=== PATIENT | female | born 1950 | race Two or more races ===

== ENCOUNTER → 2016-08-13 | Outpatient (CLI) | payer OTHER | LOC: WI 08:31 | PROVIDERS: ATTEND Internal Medicine | DX: M81.0 Age-related osteoporosis without current pathological fracture (principal) | CPT/HCPCS: 77080 ==

== ENCOUNTER → 2017-03-25 | Outpatient (CLI) | payer MEDICARE, OTHER | LOC: WI 09:07 | PROVIDERS: ATTEND Internal Medicine | DX: Z53.9 Procedure and treatment not carried out, unspecified reason (principal) ==

== ENCOUNTER 2017-06-14 07:56 | Inpatient (IN) | payer MEDICARE, OTHER ==
[2017-06-14] MEDS ORDERED: NORMAL SALINE 1000 ML 1,000 ML IV ONE ×2 (08:08→08:59)
[2017-06-14] MEDS ORDERED: CEFTRIAXONE 1 GM/D5W RTU 1 GM/50 ML RTUPB IV ONE (08:08)
[2017-06-14] MEDS ORDERED: ACETAMINOPHEN 325 MG SUPP.RECT PR ONE (08:14)
[2017-06-14] MEDS ORDERED: ACETAMINOPHEN 325 MG TABLET PO ONE (08:17)
[2017-06-14 08:32] LABS: HEMATOCRIT 41.3 % (36.0-47.0); HEMOGLOBIN 13.7 g/dL (12.0-15.5); MEAN CORPUSCULAR HEMOGLOBIN 28.9 pg (27.0-33.4); MEAN CORPUSCULAR HGB CONC 33.2 g/dL (32.0-36.0); MEAN CORPUSCULAR VOLUME 87 fl (80-97); PLATELET COUNT 197 10^3/uL (150-450); RED BLOOD COUNT 4.74 10^6/uL (3.72-5.28); RED CELL DISTRIBUTION WIDTH 13.2 % (11.5-14.0); VENOUS BLOOD BASE EXCESS 2.4 mmol/L; VENOUS BLOOD HCO3 25.4 mmol/L (20-32); VENOUS BLOOD PCO2 34.5 mmHg (35-63); VENOUS BLOOD PH 7.49 (7.30-7.42); WHITE BLOOD COUNT 25.3 10^3/uL (4.0-10.5)
[2017-06-14 08:37] LABS: INTERNATIONAL RATION (INR) 1.25; PROTHROMBIN TIME 16.6 SEC (11.4-15.4)
[2017-06-14 08:51] LABS: ALANINE AMINOTRANSFERASE 88 U/L (9-52); ALBUMIN 3.3 g/dL (3.5-5.0); ALKALINE PHOSPHATASE 111 U/L (38-126); ANION GAP 13 (5-19); ASPARTATE AMINO TRANSFERASE 180 U/L (14-36); BILIRUBIN,DIRECT 0.6 mg/dL (0.0-0.4); BILIRUBIN,TOTAL 1.9 mg/dL (0.2-1.3); BLOOD UREA NITROGEN 15 mg/dL (7-20); CALCIUM 9.3 mg/dL (8.4-10.2); CARBON DIOXIDE 25 mmol/L (22-30); CHLORIDE 103 mmol/L (98-107); GLUCOSE 115 mg/dL (75-110); POTASSIUM 3.2 mmol/L (3.6-5.0); SODIUM 140.9 mmol/L (137-145)
[2017-06-14 08:57] LABS: AMORPHOUS SEDIMENT,URINE TRACE /HPF; APPEARANCE,URINE SLIGHTLY-CLOUDY; BILIRUBIN,URINE NEGATIVE (NEGATIVE); GLUCOSE, URINE NEGATIVE (NEGATIVE); KETONES,URINE 20 mg/dL (NEGATIVE); LEUKOCYTE ESTERASE,URINE NEGATIVE (NEGATIVE); NITRITE,URINE NEGATIVE (NEGATIVE); PROTEIN,URINE 100 mg/dL (NEGATIVE)
[2017-06-14] MEDS ORDERED: NORMAL SALINE 1000 ML 1,000 ML IV PRN (08:59)
[2017-06-14 09:02] LABS: COLOR,URINE DARK YELLOW
[2017-06-14 09:21] LABS: ABSOLUTE MONOCYTES # (MANUAL) 0.3 10^3/uL (0.1-1.4); BAND NEUTROPHILS % (MANUAL) 22 % (3-5); BASOPHILS % (MANUAL) 0 % (0-2); EOSINOPHILS % (MANUAL) 0 % (0-6); LYMPHOCYTES % (MANUAL) 4 % (13-45); MONOCYTES % (MANUAL) 1 % (3-13); PLATELET COMMENT ADEQUATE; RBC MORPHOLOGY COMMENT NORMO-CYTIC/CHROMIC; SEGMENTED NEUTROPHILS % (MAN) 73 % (42-78); TOTAL CELLS COUNTED 100; TOXIC GRANULATION 2+; TOXIC VACUOLATION PRESENT
--- NOTE | 2017-06-14 09:21 | RADIOLOGY REPORT (SQ) ---
EXAM DESCRIPTION: CHEST SINGLE VIEW COMPLETED DATE/TIME: 06/14/2017 9:05 am REASON FOR STUDY: altered COMPARISON: None. EXAM PARAMETERS: NUMBER OF VIEWS: One view. TECHNIQUE: Single frontal radiographic view of the chest acquired. RADIATION DOSE: NA LIMITATIONS: Obese patient, lordotic portable film with EKG leads over the chest FINDINGS: LUNGS AND PLEURA: Dense consolidation in the left upper lobe worrisome for pneumonia. Right lung grossly clear. No pleural effusions or pneumothorax. MEDIASTINUM AND HILAR STRUCTURES: No masses. Contour normal. HEART AND VASCULAR STRUCTURES: Mild cardiomegaly BONES: No acute findings. HARDWARE: None in the chest. OTHER: No other significant finding. IMPRESSION: Dense left upper lobe consolidation worrisome for pneumonia TECHNICAL DOCUMENTATION: JOB ID: [id number] [employer]- All Rights Reserved
[2017-06-14] MEDS ORDERED: LORAZEPAM INJ 2 MG/1 ML VIAL IV ONE (09:28)
--- NOTE | 2017-06-14 09:28 | ER Document Report ---
ED General - General Chief Complaint: Fever Stated Complaint: ALTERED MENTAL STATUS Time Seen by Provider: 06/14/17 08:08 Mode of Arrival: Medic Information source: Emergency Med Personnel Cannot obtain history due to: Altered mental status Notes: 67-year-old female presents altered from house yesterday. Patient denies any complaints is able to answer some questions but is not completely alert or oriented. noted patient was confused since last night TRAVEL OUTSIDE OF THE [place] IN LAST 30 DAYS: No - HPI Onset: Yesterday Onset/Duration: Sudden Quality of pain: No pain Severity: Severe Pain Level: Denies Associated symptoms: Fever, Weakness, Other Exacerbated by: Denies Relieved by: Denies Similar symptoms previously: No Recently seen / treated by doctor: No - Related Data Allergies/Adverse Reactions: No Known Allergies Allergy (Verified 06/14/17 09:18) Home Medications: Current Home Medications Cholecalciferol (Vitamin D3) [Vitamin D3 2000 unit Tablet] 2,000 unit PO [History] Cyanocobalamin (Vitamin B-12) [Vitamin B-12 SL 2500 mcg Tablet] 2,500 mcg SL [History] Potassium Gluconate 595 Mg Tablet 06/14/17 [History] Vitamin E (Dl, Acetate) [Vitamin E 400 Unit Capsule] 400 unit PO 06/14/17 [ History] Past Medical History - Social History Smoking Status: Never Smoker Cigarette use (# per day): No Chew tobacco use (# tins/day): No Smoking Education Provided: No Frequency of alcohol use: None Drug Abuse: None Family History: Reviewed & Not Pertinent Patient has suicidal ideation: No Patient has homicidal ideation: No - Past Medical History Cardiac Medical History: Reports: Hx Congestive Heart Failure, Hx Hypercholesterolemia Renal/ Medical History: Denies: Hx Peritoneal Dialysis GI Medical History: Reports: Hx Gastroesophageal Reflux Disease Psychiatric Medical History: Reports: Hx Depression Past Surgical History: Reports: Hx Section, Hx Cholecystectomy Review of Systems - Review of Systems Notes: PHYSICAL EXAMINATION: GENERAL: Ill-appearing febrile female HEAD: Atraumatic, normocephalic. EYES: Pupils equal round and reactive to light, extraocular movements intact, conjunctiva are normal. ENT: Nares patent, oropharynx clear without exudates. Moist mucous membranes. NECK: Normal range of motion, supple without lymphadenopathy LUNGS: Coarse breath sounds worse in the right upper lobe HEART: Tachycardic ABDOMEN: Soft, nontender, nondistended abdomen. No guarding, no rebound. No masses appreciated. Female : deferred Musculoskeletal: Normal range of motion, no pitting or edema. No cyanosis. NEUROLOGICAL: Cranial nerves grossly intact. Normal speech, normal gait. Normal sensory, motor exams PSYCH: Normal mood, normal affect. SKIN: Warm, Dry, normal turgor, no rashes or lesions noted. -: Yes ROS unobtainable due to patient's medical condition Physical Exam - Vital signs Vitals: Resp BP Pulse Ox 29 H 139/72 H 92 06/14/17 08:14 06/14/17 08:14 06/14/17 08:14 Course - Re-evaluation Re-evalutation: 06/14/17 10:53 Patient appears to meet SIRS criteria upon arrival, Tylenol was ordered, I immediately started antibiotics, her presentation is consistent with pneumonia with complaint of shortness of breath at home, patient is satting 100% here chest x-ray was consistent with pneumonia. Given that patient's altered meets sepsis criteria she was started on antibiotics 4 L of IV fluids were ordered and given patient was admitted to the hospitalist service - Vital Signs Vital signs: Temp Pulse Resp BP Pulse Ox 101.5 F H 20 124/58 L 100 06/14/17 09:01 06/14/17 09:01 06/14/17 09:01 06/14/17 09:01 - Laboratory Result Diagrams: 06/14/17 08:07 06/14/17 08:07 Laboratory results interpreted by me: 06/14/17 06/14/17 06/14/17 08:07 08:07 08:07 WBC 25.3 H Band Neutrophils % 22 H Lymphocytes % (Manual) 4 L Monocytes % (Manual) 1 L Abs Neuts (Manual) 24.0 H PT 16.6 H VBG pH VBG pCO2 Potassium 3.2 L Glucose 115 H Lactic Acid Total Bilirubin 1.9 H Direct Bilirubin 0.6 H AST 180 H ALT 88 H Creatine Kinase NT-Pro-B Natriuret Pep Total Protein 6.0 L Albumin 3.3 L Urine Protein Urine Ketones Urine Blood Urine Urobilinogen 06/14/17 06/14/17 06/14/17 08:07 08:07 08:07 WBC Band Neutrophils % Lymphocytes % (Manual) Monocytes % (Manual) Abs Neuts (Manual) PT VBG pH 7.49 H VBG pCO2 34.5 L Potassium Glucose Lactic Acid 3.1 H Total Bilirubin Direct Bilirubin AST ALT Creatine Kinase 3050 H NT-Pro-B Natriuret Pep Total Protein Albumin Urine Protein Urine Ketones Urine Blood Urine Urobilinogen 06/14/17 06/14/17 08:07 08:30 WBC Band Neutrophils % Lymphocytes % (Manual) Monocytes % (Manual) Abs Neuts (Manual) PT VBG pH VBG pCO2 Potassium Glucose Lactic Acid Total Bilirubin Direct Bilirubin AST ALT Creatine Kinase NT-Pro-B Natriuret Pep 2500 H Total Protein Albumin Urine Protein 100 H Urine Ketones 20 H Urine Blood LARGE H Urine Urobilinogen 4.0 H - Diagnostic Test Radiology reviewed: Image reviewed, Reports reviewed - EKG Interpretation by Me EKG shows normal: Sinus rhythm, [place], Intervals, QRS Complexes Critical Care Note - Critical Care Note Total time excluding time spent on procedures (mins): 40 Comments: 40 minutes of critical care time spent in direct contact evaluating and reevaluating the patient, treating symptoms, reviewing labs and studies and speaking with family and consultants excluding any procedures Discharge - Discharge Clinical Impression: Pneumonia Qualifiers: Pneumonia type: due to unspecified organism Laterality: left Lung location: lower lobe of lung Qualified Code(s): J18.1 - Lobar pneumonia, unspecified organism Sepsis Qualifiers: Sepsis type: sepsis due to unspecified organism Qualified Code(s): A41.9 - Sepsis, unspecified organism Condition: Stable Disposition: HOME, SELF-CARE Admitting Provider: Hospitalist Unit Admitted: [facility]
[2017-06-14] MEDS ORDERED: HYDRALAZINE HCL INJ/PF 20 MG/1 ML SDV IV PRN (09:29)
[2017-06-14] MEDS ORDERED: IPRATROPIUM/ALBUTEROL 0.5-2.5 MG/3 ML AMPUL NEB PRN (09:32)
[2017-06-14] MEDS ORDERED: VANCOMYCIN HCL 0 MG in DEXTROSE 5%-WATER 250 ML IV NR (09:45)
[2017-06-14] MEDS ORDERED: CHLORPHENIRAMINE MALEATE 4 MG TABLET PO ONE (10:00)
[2017-06-14] MEDS: POTASSI CL 20 MEQ/50 ML RIDER 20 MEQ/50 ML RTUPB IV SCH ×2 (10:24→12:58)
[2017-06-14] MEDS: GUAIFENESIN 600 MG TABLET.SA PO SCH ×2 (10:45→22:14)
[2017-06-14] MEDS: FLUTICASONE NASAL SPRAY 50 MCG/SPRY 120 SPRAY/16 GM NASL SCH ×2 (10:45→22:39)
--- NOTE | 2017-06-14 10:45 | PDOC H&P ---
History of Present Illness Admission Date/PCP: MOLLY RINCON MD Patient complains of: Altered mental status History of Present Illness: PAULINE BOSCH is a 67 year old female with a past medical history of morbid obesity, fibromyalgia, opiate dependent chronic pain, hypothyroidism, depression and anxiety. In the emergency room she is agitated her asks if she wants to kill herself. She replies yes, her agitation requires sedation with Ativan and is subsequently a very poor historian history is obtained by her . Patient presents with approximately 48 hours of lethargy following an argument with her sister. describes hearing her fall out of bed but declined assistance to get back into bed for approximately 8 hours and slept on the floor. He denies fever, vomiting or complaints of headache chest pain, nausea. He admits she has run out of medications including narcotics early on multiple occasions. Her workup reveals fever, tachycardia, tachypne,a leukocytosis and a large left- sided infiltrate suggestive of pneumonia. She is referred to the hospitalist for admission. Past Medical History Cardiac Medical History: Reports: Congestive Heart Failure, Hyperlipidema Endocrine Medical History: Reports: Hypothyroidism, Obesity GI Medical History: Reports: Gastroesophageal Reflux Disease Psychiatric Medical History: Reports: Depression Denies: Alcohol Dependency Hematology: Reports: Anemia Past Surgical History Past Surgical History: Reports: Section, Cholecystectomy Social History Information Source: Relative, Emergency Med Personnel, [facility] Records Lives with: Spouse/Significant other Smoking Status: Never Smoker - Advance Directive Resuscitation Status: Full Code Family History Family History: Arthritis Parental Family History Reviewed: Yes Children Family History Reviewed: Yes Sibling(s) Family History Reviewed.: Yes Medication/Allergy Allergies/Adverse Reactions: No Known Allergies Allergy (Verified 06/14/17 09:18) Review of Systems ROS unobtainable: Due to mental status Physical Exam Vital Signs: Temp Pulse Resp BP Pulse Ox 101.5 F H 20 124/58 L 100 06/14/17 09:01 06/14/17 09:01 06/14/17 09:01 06/14/17 09:01 Intake & Output 06/12/17 06/13/17 06/14/17 11:59 11:59 11:59 Weight 115.3 kg General appearance: PRESENT: disheveled, mild distress, morbidly obese Head exam: PRESENT: atraumatic, normocephalic Eye exam: PRESENT: conjunctiva pink, EOMI, PERRLA. ABSENT: scleral icterus Ear exam: PRESENT: normal external ear exam Mouth exam: PRESENT: moist, tongue midline Neck exam: ABSENT: carotid bruit, JVD, lymphadenopathy, thyromegaly Respiratory exam: PRESENT: accessory muscle use, rales, retraction, rhonchi, tachypnea Cardiovascular exam: PRESENT: RRR. ABSENT: diastolic murmur, rubs, systolic murmur Pulses: PRESENT: normal dorsalis pedis pul Vascular exam: PRESENT: normal capillary refill GI/Abdominal exam: PRESENT: normal bowel sounds, soft, tenderness - Left lower quadrant tenderness without guarding. ABSENT: distended, guarding, mass, organolmegaly, rebound Rectal exam: PRESENT: deferred Extremities exam: PRESENT: full ROM. ABSENT: calf tenderness, clubbing, pedal edema Neurological exam: PRESENT: alert, altered, awake, oriented to person, CN II- XII grossly intact. ABSENT: motor sensory deficit Psychiatric exam: PRESENT: depressed, unusual affect. ABSENT: homicidal ideation, suicidal ideation Skin exam: PRESENT: dry, intact, warm. ABSENT: cyanosis, rash Results Laboratory Results: 06/14/17 08:07 06/14/17 08:07 06/14/17 06/14/17 06/14/17 08:07 08:07 08:07 WBC 25.3 H RBC 4.74 Hgb 13.7 Hct 41.3 MCV 87 MCH 28.9 MCHC 33.2 RDW 13.2 Plt Count 197 Seg Neutrophils % Not Reportable Lymphocytes % Not Reportable Monocytes % Not Reportable Eosinophils % Not Reportable Basophils % Not Reportable Absolute Neutrophils Not Reportable Absolute Lymphocytes Not Reportable Absolute Monocytes Not Reportable Absolute Eosinophils Not Reportable Absolute Basophils Not Reportable VBG pH VBG pCO2 VBG HCO3 VBG Base Excess Sodium 140.9 Potassium 3.2 L Chloride 103 Carbon Dioxide 25 Anion Gap 13 BUN 15 Creatinine 0.78 Est GFR ( Amer) > 60 Est GFR (Non-Af Amer) > 60 Glucose 115 H Lactic Acid 3.1 H Calcium 9.3 Total Bilirubin 1.9 H AST 180 H ALT 88 H Alkaline Phosphatase 111 Total Protein 6.0 L Albumin 3.3 L Urine Color Urine Appearance Urine pH Ur Specific [place] Urine Protein Urine Glucose (UA) Urine Ketones Urine Blood Urine Nitrite Ur Leukocyte Esterase Urine WBC (Auto) Urine RBC (Auto) 06/14/17 06/14/17 08:07 08:30 WBC RBC Hgb Hct MCV MCH MCHC RDW Plt Count Seg Neutrophils % Lymphocytes % Monocytes % Eosinophils % Basophils % Absolute Neutrophils Absolute Lymphocytes Absolute Monocytes Absolute Eosinophils Absolute Basophils VBG pH 7.49 H VBG pCO2 34.5 L VBG HCO3 25.4 VBG Base Excess 2.4 Sodium Potassium Chloride Carbon Dioxide Anion Gap BUN Creatinine Est GFR ( Amer) Est GFR (Non-Af Amer) Glucose Lactic Acid Calcium Total Bilirubin AST ALT Alkaline Phosphatase Total Protein Albumin Urine Color DARK YELLOW Urine Appearance SLIGHTLY-CLOUDY Urine pH 6.0 Ur Specific [place] 1.020 Urine Protein 100 H Urine Glucose (UA) NEGATIVE Urine Ketones 20 H Urine Blood LARGE H Urine Nitrite NEGATIVE Ur Leukocyte Esterase NEGATIVE Urine WBC (Auto) 3 Urine RBC (Auto) 6 Impressions: Chest X-Ray 06/14/17 08:09 IMPRESSION: Dense left upper lobe consolidation worrisome for pneumonia Assessment & Plan - Diagnosis (1) Sepsis Qualifiers: Sepsis type: sepsis due to unspecified organism Qualified Code(s): A41.9 - Sepsis, unspecified organism Is this a current diagnosis for this admission?: Yes Plan: Most likely secondary to pneumonia admitted to ICU, IV fluid challenge empiric vancomycin and Zosyn ordered follow-up CBC, blood and urine culture (2) Pneumonia Qualifiers: Pneumonia type: due to unspecified organism Laterality: left Lung location: lower lobe of lung Qualified Code(s): J18.1 - Lobar pneumonia, unspecified organism Is this a current diagnosis for this admission?: Yes Plan: Complicated by bandemia and morbid obesity. admitted to the IMCU with vancomycin and Zosyn, albuterol and Atrovent. BiPAP as needed incentive spirometry consider follow-up imaging (3) Encephalopathy acute Is this a current diagnosis for this admission?: Yes Plan: Likely multifactorial secondary to depression with psychosis and delirium, sepsis and Ativan. Supportive measures. Evaluate urine drug screen (4) Chronic pain Is this a current diagnosis for this admission?: Yes Plan: Evaluate for fentanyl or lidocaine transdermal patch, supportive measures (5) Depression Is this a current diagnosis for this admission?: Yes Plan: Depression with suicidal ideation. I Will evaluate education reconciliation, TSH and obtain urine drug screen, suicide precautions and mental health consultation. (6) Hypokalemia Is this a current diagnosis for this admission?: Yes Plan: Replace potassium and evaluate magnesium. (7) Rhabdomyolysis Is this a current diagnosis for this admission?: Yes Plan: Suggested by history of sleeping on the floor, opiates and elevated AST. Will evaluate total CK and initiate IV fluid challenge. - Time Time Spent: 50 to 70 Minutes - Inpatient Certification Medical Necessity: Need Close Monitoring Due to Risk of Patient Decompensation
[2017-06-14 10:47] LABS: CREATINE KINASE MB 7.97 ng/mL (<4.55)
[2017-06-14] MEDS ORDERED: VANCOMYCIN HCL 1,500 MG in DEXTROSE 5%-WATER 250 ML IV ONE (11:00)
[2017-06-14 11:01] LABS: TROPONIN I 0.33 ng/mL
[2017-06-14 11:40] LABS: URINE AMPHETAMINES SCREEN NEGATIVE; URINE BARBITURATES SCREEN NEGATIVE; URINE BENZODIAZEPINES SCREEN NEGATIVE; URINE COCAINE SCREEN NEGATIVE; URINE MARIJUANA (THC) SCREEN NEGATIVE; URINE METHADONE SCREEN NEGATIVE; URINE PHENCYCLIDINE SCREEN NEGATIVE
[2017-06-14 11:54] LABS: PATH REVIEW PATHOLOGIST REVIEWED
[2017-06-14] MEDS ORDERED: PIPERACILLIN SODIUM/TAZOBACTAM 4.5 GM in NORMAL SALINE 100 ML IV SCH (12:00)
[2017-06-14] MEDS ORDERED: PIPERACILLIN SODIUM/TAZOBACTAM 3.375 GM in NORMAL SALINE 100 ML IV SCH (12:00)
--- NOTE | 2017-06-14 12:10 | PSYCHOLOGICAL NOTE ---
Psych Note - Psych Note Psych Note: * Reason for consult: depression w optate dependency and suicidal ideation * Consent permissions: Patient is currently unable to provide Patient is a 67 year old female with a past medical history of morbid obesity, fibromyalgia, opiate dependent chronic pain, hypothyroidism, depression and anxiety. In the emergency room she is agitated, her asks if she wants to kill herself. She replies yes, her agitation requires sedation with Ativan and is subsequently a very poor historian; history is obtained by her . Evaluation Patient observed attempting to get out of [facility]. Patient is visibly agitated, confused and scared. Patient is unable to state where she is or why she is currently at [facility]. Patient started to cry when she was assisted back into the [facility]. Patient's , Taj, states that the patient has been seeing Dr. Manning for approximately 4-5 years but has been suffering from depression for "as long as I can remember." He continued to state that she has had both her knees replaced and a hernia repaired twice. The patient has said in the past that this is not a quality of life however he continued to state, "she does not say it often and has not said it lately." He disclosed that she has been going to pain management and was recently put on Lyrica (approximately 1-2 months ago) after being diagnosed with fibromyalgia. He reports that in addition to the Lyrica she is on multiple other medications and in between taking those medication she is taking Tylenol for the pain. Clinician asked Taj what prompted him to ask if the patient wanted to kill herself, he disclosed " because of the way she has been fighting.... Trying to pull out her IVs and leave.... I have never seen her like this." Patient is currently altered mental status. She is unable to identify where she is at, why she is currently at [facility], and possibly what is being said to her. Patient appears to be very confused and scared. All cognitive functioning is currently impaired due to her current mental status. 311 (32.9) unspecified depressive disorder per history provided by patient's 300.00 (F41.9) unspecified anxiety disorder per history provided by patient's Impression\\plan: Patient is considered psychiatrically clear. Patient is currently in altered mental status. This is possibly due to her medical status. Patient's states that she is under the care of an outpatient psychiatric provider, Dr. Manning, and states he has never had concerns for the patient having suicidal ideation in the past. He disclosed that he asked the patient if she wanted to kill herself because of the way she has been behaving since arriving (i.e. attempting to pull of IVs and leave). The Behavioral Health Team recommends medication adjustments: Discontinue Ambien and Abilify, Decrease Krissy to 50mg BID, Effexor to 75mg QD, and to Trazadone 50mg QHS. Thank you for this consult.
[2017-06-14] MEDS: IPRATROPIUM/ALBUTEROL 0.5-2.5 MG/3 ML AMPUL NEB SCH ×2 (13:43→20:21)
[2017-06-14] MEDS: HEPARIN SOD (PORCINE) 5,000 UNIT/ML 1 ML SYRINGE SUBCUT SCH ×2 (14:11→21:56)
[2017-06-14] MEDS: NORMAL SALINE 1000 ML 1,000 ML IV SCH ×3 (14:32→21:57)
[2017-06-14] MEDS ORDERED: PROPRANOLOL HCL 20 MG TABLET PO ONE (14:45)
[2017-06-14] MEDS ORDERED: ASPIRIN 325 MG TABLET PO ONE (16:28)
[2017-06-14 16:29] LABS: CREATINE KINASE MB 8.94 ng/mL (<4.55)
[2017-06-14 16:36] LABS: TROPONIN I 0.207 ng/mL
[2017-06-14] MEDS: PIPERACILLIN SODIUM/TAZOBACTAM 3.375 GM in NORMAL SALINE 100 ML IV SCH (17:33)
[2017-06-14] MEDS: VANCOMYCIN HCL 1,000 MG in DEXTROSE 5%-WATER 250 ML IV SCH (21:56)
[2017-06-14] MEDS ORDERED: PREGABALIN 75 MG CAPSULE PO SCH (22:00)
[2017-06-14] MEDS: VENLAFAXINE HCL 75 MG CAP.SR.24H PO SCH (22:11)
[2017-06-14] MEDS: TRAZODONE HCL 50 MG TABLET PO SCH (22:11)
[2017-06-14] MEDS: ARIPIPRAZOLE 5 MG TABLET PO SCH (22:13)
[2017-06-14 22:42] LABS: CREATINE KINASE MB 7.09 ng/mL (<4.55); TROPONIN I 0.166 ng/mL
[2017-06-15] MEDS: PIPERACILLIN SODIUM/TAZOBACTAM 3.375 GM in NORMAL SALINE 100 ML IV SCH ×4 (00:25→18:17)
[2017-06-15] MEDS: PROPRANOLOL HCL 20 MG TABLET PO SCH ×3 (01:04→22:52)
[2017-06-15] MEDS: IPRATROPIUM/ALBUTEROL 0.5-2.5 MG/3 ML AMPUL NEB SCH ×4 (01:56→20:55)
[2017-06-15] MEDS: LEVOTHYROXINE SODIUM 0.075 MG TABLET PO SCH (05:24)
[2017-06-15] MEDS: HEPARIN SOD (PORCINE) 5,000 UNIT/ML 1 ML SYRINGE SUBCUT SCH ×3 (05:24→22:53)
[2017-06-15] MEDS: NORMAL SALINE 1000 ML 1,000 ML IV SCH (05:25)
[2017-06-15 05:48] LABS: HEMATOCRIT 34.9 % (36.0-47.0); MEAN CORPUSCULAR HEMOGLOBIN 28.7 pg (27.0-33.4); MEAN CORPUSCULAR HGB CONC 32.7 g/dL (32.0-36.0); MEAN CORPUSCULAR VOLUME 88 fl (80-97); PLATELET COUNT 156 10^3/uL (150-450); RED BLOOD COUNT 3.99 10^6/uL (3.72-5.28); RED CELL DISTRIBUTION WIDTH 13.4 % (11.5-14.0); WHITE BLOOD COUNT 18.1 10^3/uL (4.0-10.5)
[2017-06-15 05:54] LABS: HEMOGLOBIN 11.4 g/dL (12.0-15.5)
[2017-06-15 06:00] LABS: ALANINE AMINOTRANSFERASE 83 U/L (9-52); ALBUMIN 2.5 g/dL (3.5-5.0); ALKALINE PHOSPHATASE 91 U/L (38-126); ANION GAP 10 (5-19); ASPARTATE AMINO TRANSFERASE 130 U/L (14-36); BILIRUBIN,DIRECT 0.3 mg/dL (0.0-0.4); BLOOD UREA NITROGEN 13 mg/dL (7-20); CALCIUM 8.8 mg/dL (8.4-10.2); CARBON DIOXIDE 22 mmol/L (22-30); CHLORIDE 113 mmol/L (98-107); GLUCOSE 81 mg/dL (75-110); TOTAL PROTEIN 4.7 g/dL (6.3-8.2)
[2017-06-15 06:06] LABS: POTASSIUM 2.9 mmol/L (3.6-5.0)
[2017-06-15 06:17] LABS: ABSOLUTE LYMPHOCYTES# (MANUAL) 1.1 10^3/uL (0.5-4.7); ABSOLUTE MONOCYTES # (MANUAL) 0.2 10^3/uL (0.1-1.4); ABSOLUTE NEUTROPHILS# (MANUAL) 16.8 10^3/uL (1.7-8.2); BAND NEUTROPHILS % (MANUAL) 5 % (3-5); BASOPHILS % (MANUAL) 0 % (0-2); EOSINOPHILS % (MANUAL) 0 % (0-6); LYMPHOCYTES % (MANUAL) 6 % (13-45); MONOCYTES % (MANUAL) 1 % (3-13); SEGMENTED NEUTROPHILS % (MAN) 88 % (42-78); TOTAL CELLS COUNTED 100
[2017-06-15 06:18] LABS: PLATELET COMMENT ADEQUATE; RBC MORPHOLOGY COMMENT NORMO-CYTIC/CHROMIC; TOXIC GRANULATION 1+
[2017-06-15] MEDS ORDERED: POTASSIUM CHLORIDE 10 MEQ TABLET.SA PO ONE (06:37)
[2017-06-15] MEDS: GUAIFENESIN 600 MG TABLET.SA PO SCH ×2 (09:25→22:52)
[2017-06-15] MEDS: VENLAFAXINE HCL 75 MG CAP.SR.24H PO SCH ×2 (09:25→22:52)
[2017-06-15] MEDS: VANCOMYCIN HCL 1,000 MG in DEXTROSE 5%-WATER 250 ML IV SCH ×2 (09:26→22:55)
[2017-06-15] MEDS ORDERED: NORMAL SALINE 1000 ML 1,000 ML IV PRN (11:29)
--- NOTE | 2017-06-15 11:40 | PDOC PROGRESS REPORT ---
Subjective Progress Note for:: 06/15/17 Subjective:: Unable to obtain since confused. to bedside and states that her problems started late on and progressed to Saturday prompting to bring her to emergency room. When he inquired about suicidal thoughts today he states that he does not think he knew what she was talking about Reason For Visit: SEPSIS,PNEUMONIA Physical Exam Vital Signs: Temp Pulse Resp BP Pulse Ox 99.2 F 105 H 24 H 105/57 L 94 06/15/17 03:10 06/15/17 03:10 06/15/17 03:10 06/15/17 03:10 06/15/17 03:10 Intake & Output 06/14/17 06/15/17 06/16/17 06:59 06:59 06:59 Intake Total 3605 Output Total 825 Balance 2780 Weight 120.2 kg General appearance: PRESENT: no acute distress, cooperative, morbidly obese Head exam: PRESENT: atraumatic, normocephalic Eye exam: PRESENT: EOMI, PERRLA Ear exam: PRESENT: normal external ear exam Mouth exam: PRESENT: dry mucosa Neck exam: PRESENT: full ROM. ABSENT: JVD, tenderness Respiratory exam: PRESENT: decreased breath sounds. ABSENT: tachypnea, unlabored, wheezes Cardiovascular exam: PRESENT: RRR. ABSENT: diastolic murmur, systolic murmur Vascular exam: PRESENT: normal capillary refill GI/Abdominal exam: PRESENT: normal bowel sounds, soft. ABSENT: guarding, tenderness Extremities exam: ABSENT: joint swelling, pedal edema Musculoskeletal exam: PRESENT: full ROM Neurological exam: PRESENT: alert, awake, oriented to person, CN II-XII grossly intact Psychiatric exam: PRESENT: depressed Results Laboratory Results: 06/15/17 05:00 06/15/17 05:00 06/14/17 06/15/17 06/15/17 12:13 05:00 05:00 WBC 18.1 H RBC 3.99 Hgb 11.4 L D Hct 34.9 L MCV 88 MCH 28.7 MCHC 32.7 RDW 13.4 Plt Count 156 Seg Neutrophils % Not Reportable Lymphocytes % Not Reportable Monocytes % Not Reportable Eosinophils % Not Reportable Basophils % Not Reportable Absolute Neutrophils Not Reportable Absolute Lymphocytes Not Reportable Absolute Monocytes Not Reportable Absolute Eosinophils Not Reportable Absolute Basophils Not Reportable Sodium 145.0 Potassium 2.9 L* Chloride 113 H Carbon Dioxide 22 Anion Gap 10 BUN 13 Creatinine 0.66 Est GFR ( Amer) > 60 Est GFR (Non-Af Amer) > 60 Glucose 81 Lactic Acid 2.9 H Calcium 8.8 Magnesium Total Bilirubin 1.0 AST 130 H ALT 83 H Alkaline Phosphatase 91 Total Protein 4.7 L Albumin 2.5 L 06/15/17 05:00 WBC RBC Hgb Hct MCV MCH MCHC RDW Plt Count Seg Neutrophils % Lymphocytes % Monocytes % Eosinophils % Basophils % Absolute Neutrophils Absolute Lymphocytes Absolute Monocytes Absolute Eosinophils Absolute Basophils Sodium Potassium Chloride Carbon Dioxide Anion Gap BUN Creatinine Est GFR ( Amer) Est GFR (Non-Af Amer) Glucose Lactic Acid Calcium Magnesium 1.9 Total Bilirubin AST ALT Alkaline Phosphatase Total Protein Albumin 06/14/17 06/14/17 06/14/17 15:35 15:35 21:50 Creatine Kinase 2506 H 1498 H CK-MB (CK-2) 8.94 H Troponin I 0.207 06/14/17 21:50 Creatine Kinase CK-MB (CK-2) 7.09 H Troponin I 0.166 Impressions: Chest X-Ray 06/14/17 08:09 IMPRESSION: Dense left upper lobe consolidation worrisome for pneumonia Assessment & Plan - Diagnosis (1) Opioid dependence Qualifiers: Substance use status: uncomplicated Qualified Code(s): F11.20 - Opioid dependence, uncomplicated Is this a current diagnosis for this admission?: Yes Plan: Even though her long-standing does not appear to me that may be playing a role in her presentation (2) Chronic pain Qualifiers: Chronic pain type: chronic pain syndrome Qualified Code(s): G89.4 - Chronic pain syndrome Is this a current diagnosis for this admission?: Yes Plan: We will continue current regimen and will try to avoid heavy sedation (3) Encephalopathy acute Is this a current diagnosis for this admission?: Yes Plan: Persisting but appears to be related to septic process (4) Hypokalemia Is this a current diagnosis for this admission?: Yes Plan: Replace p.o. and trend. Will order a one-time dose of magnesium sulfate 1 g. (5) Pneumonia Qualifiers: Pneumonia type: due to unspecified organism Laterality: left Lung location: lower lobe of lung Qualified Code(s): J18.1 - Lobar pneumonia, unspecified organism Is this a current diagnosis for this admission?: Yes Plan: Concern about the location of pneumonic process and will order a CT of the chest. Will continue Zosyn and vancomycin (6) Rhabdomyolysis Is this a current diagnosis for this admission?: Yes Plan: May relate to septic process. Will continue with IV fluids and will trend CPK (7) Sepsis Qualifiers: Sepsis type: sepsis due to unspecified organism Qualified Code(s): A41.9 - Sepsis, unspecified organism Is this a current diagnosis for this admission?: Yes Plan: Due to pneumonic process (8) Elevated troponin Is this a current diagnosis for this admission?: Yes Plan: Due to myocardial oxygen demand ischemia in the setting of sepsis - Time Time Spent with patient: 15-24 minutes Medications reviewed and adjusted accordingly: Yes Anticipated discharge: Acute Rehab Within: within 72 hours - Inpatient Certification Based on my medical assessment, after consideration of the patient's comorbidities, presenting symptoms, or acuity I expect that the services needed warrant INPATIENT care.: Yes I certify that my determination is in accordance with my understanding of Medicare's requirements for reasonable and necessary INPATIENT services [42 CFR 412.3e].: Yes Medical Necessity: Need for IV Antibiotics
[2017-06-15] MEDS ORDERED: PREGABALIN 50 MG CAPSULE PO ONE (12:30)
[2017-06-15] MEDS ORDERED: MAGNESIUM SULFATE/D5W 1 GM/100 ML RTUPB IV ONE (12:30)
--- NOTE | 2017-06-15 13:17 | RADIOLOGY REPORT (SQ) ---
EXAM DESCRIPTION: CT CHEST WITHOUT COMPLETED DATE/TIME: 06/15/2017 12:35 pm REASON FOR STUDY: left upper lung consilidation COMPARISON: Chest radiograph TECHNIQUE: CT scan performed of the chest without intravenous contrast. Images reviewed with lung, soft tissue and bone windows. Reconstructed coronal and sagittal MPR images reviewed. All images st ored on PACS. All CT scanners at this facility use dose modulation, iterative reconstruction, and/or weight based d osing when appropriate to reduce radiation dose to as low as reasonably achievable (ALARA). [facility]: Dose Right [facility]: CareDose [facility]: Dose Right [facility]: Teradose 4D [facility]: [email or web address] RADIATION DOSE: CT Rad equipment meets quality standard of care and radiation dose reduction techniq ues were employed. CTDIvol: 28.0 mGy. DLP: 1073 mGy-cm. mGy. LIMITATIONS: No technical limitations. FINDINGS: LUNGS AND PLEURA: Extensive dense opacity in the left upper lobe with multiple air broncho grams. No effusions. No endobronchial lesions. Minimal left basilar atelectasis. HILAR AND MEDIASTINAL STRUCTURES: No identified masses or abnormal nodes. No obvious aneurysm. HEART AND VASCULAR STRUCTURES: No aneurysm. No pericardial effusion. UPPER ABDOMEN: Large ventral hernia containing bowel. THYROID AND OTHER SOFT TISSUES: No masses. No adenopathy. BONES: No significant finding. HARDWARE: None in the chest. OTHER: No other significant findings. IMPRESSION: Extensive left upper lobe pneumonia without identified mass. Ventral abdominal hernia containing nonobstructed bowel. TECHNICAL DOCUMENTATION: JOB ID: [id number] Quality ID # [id number]: Final reports with documentation of one or more dose reduction techniques (e.g., Au tomated exposure control, adjustment of the mA and/or kV according to patient size, use of iterative reconstruction technique) 2010 [employer]- All Rights Reserved
[2017-06-15] MEDS: FLUTICASONE NASAL SPRAY 50 MCG/SPRY 120 SPRAY/16 GM NASL SCH ×2 (13:33→22:55)
[2017-06-15] MEDS: POTASSIUM CHLORIDE 10 MEQ TABLET.SA PO SCH ×2 (14:41→22:52)
[2017-06-15 16:30] LABS: ANION GAP 7 (5-19); BLOOD UREA NITROGEN 13 mg/dL (7-20); CALCIUM 8.9 mg/dL (8.4-10.2); CARBON DIOXIDE 23 mmol/L (22-30); CHLORIDE 116 mmol/L (98-107); GLUCOSE 80 mg/dL (75-110); POTASSIUM 3.8 mmol/L (3.6-5.0); SODIUM 146.3 mmol/L (137-145)
[2017-06-15] MEDS ORDERED: POTASSIUM CHLORIDE 20 MEQ/15 ML UDCUP PEG ONE (22:30)
[2017-06-15] MEDS: PREGABALIN 50 MG CAPSULE PO SCH (22:52)
[2017-06-15] MEDS: ARIPIPRAZOLE 5 MG TABLET PO SCH (22:52)
[2017-06-15] MEDS: TRAZODONE HCL 50 MG TABLET PO SCH (22:52)
[2017-06-15 23:39] LABS: AMORPHOUS SEDIMENT,URINE 1+ /HPF; APPEARANCE,URINE TURBID; BILIRUBIN,URINE NEGATIVE (NEGATIVE); COLOR,URINE YELLOW; GLUCOSE, URINE NEGATIVE (NEGATIVE); KETONES,URINE TRACE mg/dL (NEGATIVE); LEUKOCYTE ESTERASE,URINE TRACE (NEGATIVE); NITRITE,URINE NEGATIVE (NEGATIVE); PROTEIN,URINE 100 mg/dL (NEGATIVE); URINE SPECIFIC GRAVITY 1.036; UROBILINOGEN,URINE NEGATIVE mg/dL (<2.0)
[2017-06-16] MEDS: IPRATROPIUM/ALBUTEROL 0.5-2.5 MG/3 ML AMPUL NEB SCH ×4 (01:12→20:39)
[2017-06-16] MEDS: PIPERACILLIN SODIUM/TAZOBACTAM 3.375 GM in NORMAL SALINE 100 ML IV SCH ×4 (01:30→17:27)
[2017-06-16] MEDS: HEPARIN SOD (PORCINE) 5,000 UNIT/ML 1 ML SYRINGE SUBCUT SCH ×3 (06:28→22:11)
[2017-06-16] MEDS: POTASSIUM CHLORIDE 10 MEQ TABLET.SA PO SCH (06:28)
[2017-06-16] MEDS: LEVOTHYROXINE SODIUM 0.075 MG TABLET PO SCH (06:28)
[2017-06-16 06:54] LABS: ABSOLUTE EOSINOPHILS # (AUTO) 0.2 10^3/uL (0.0-0.6); ABSOLUTE LYMPHOCYTES (AUTO) 1.4 10^3/uL (0.5-4.7); ABSOLUTE NEUT (AUTO) 8.8 10^3/uL (1.7-8.2); BASOPHILS % (AUTO) 0.4 % (0-2); EOSINOPHILS % (AUTO) 1.9 % (0-6); HEMATOCRIT 35.3 % (36.0-47.0); HEMOGLOBIN 11.5 g/dL (12.0-15.5); LYMPHOCYTES % (AUTO) 12.1 % (13-45); MEAN CORPUSCULAR HEMOGLOBIN 28.7 pg (27.0-33.4); MEAN CORPUSCULAR HGB CONC 32.7 g/dL (32.0-36.0); MEAN CORPUSCULAR VOLUME 88 fl (80-97); MONOCYTES % (AUTO) 8.4 % (3-13); PLATELET COUNT 156 10^3/uL (150-450); RED BLOOD COUNT 4.01 10^6/uL (3.72-5.28); RED CELL DISTRIBUTION WIDTH 13.6 % (11.5-14.0); SEGMENTED NEUTROPHILS % (AUTO) 77.2 % (42-78); TOTAL CELLS COUNTED % (AUTO) 100 %; WHITE BLOOD COUNT 11.5 10^3/uL (4.0-10.5)
[2017-06-16 07:26] LABS: ALANINE AMINOTRANSFERASE 95 U/L (9-52); ALBUMIN 2.6 g/dL (3.5-5.0); ALKALINE PHOSPHATASE 87 U/L (38-126); ANION GAP 9 (5-19); ASPARTATE AMINO TRANSFERASE 115 U/L (14-36); BILIRUBIN,DIRECT 0.2 mg/dL (0.0-0.4); BILIRUBIN,TOTAL 0.6 mg/dL (0.2-1.3); BLOOD UREA NITROGEN 11 mg/dL (7-20); CARBON DIOXIDE 22 mmol/L (22-30); CHLORIDE 116 mmol/L (98-107); CREATINE KINASE 418 U/L (30-135); GLUCOSE 76 mg/dL (75-110); MAGNESIUM 2.3 mg/dL (1.6-2.3); POTASSIUM 4.5 mmol/L (3.6-5.0); SODIUM 146.5 mmol/L (137-145); TOTAL PROTEIN 4.9 g/dL (6.3-8.2)
[2017-06-16] MEDS: GUAIFENESIN 600 MG TABLET.SA PO SCH ×2 (09:14→22:23)
[2017-06-16] MEDS: VENLAFAXINE HCL 75 MG CAP.SR.24H PO SCH ×2 (09:14→22:11)
[2017-06-16] MEDS: PROPRANOLOL HCL 20 MG TABLET PO SCH ×2 (09:14→22:11)
[2017-06-16] MEDS: PREGABALIN 50 MG CAPSULE PO SCH ×2 (09:14→22:11)
[2017-06-16] MEDS: FLUTICASONE NASAL SPRAY 50 MCG/SPRY 120 SPRAY/16 GM NASL SCH ×2 (09:15→22:23)
[2017-06-16] MEDS: VANCOMYCIN HCL 1,000 MG in DEXTROSE 5%-WATER 250 ML IV SCH (10:00)
[2017-06-16] MEDS ORDERED: DOXYCYCLINE HYCLATE 100 MG TABLET PO ONE (11:00)
--- NOTE | 2017-06-16 11:08 | EKG REPORT ---
SEVERITY:- ABNORMAL ECG - SINUS TACHYCARDIA INFERIOR INFARCT, AGE INDETERMINATE CONSIDER ANTERIOR INFARCT : Confirmed by: Helena Cardoza MD 16-Jun-2017 11:07:45
--- NOTE | 2017-06-16 13:06 | PDOC PROGRESS REPORT ---
Subjective Progress Note for:: 06/16/17 Subjective:: Patient admits that she could recall what happened to her but on the overall she feels better. Reason For Visit: SEPSIS,PNEUMONIA Physical Exam Vital Signs: Temp Pulse Resp BP Pulse Ox 97.9 F 75 20 126/99 H 98 06/16/17 04:47 06/16/17 04:47 06/16/17 04:47 06/16/17 04:47 06/16/17 04:47 Intake & Output 06/14/17 06/15/17 06/16/17 06:59 06:59 06:59 Intake Total 3605 3619 Output Total 825 350 Balance 2780 3269 Weight 120.2 kg 120.2 kg General appearance: PRESENT: no acute distress, cooperative, morbidly obese Head exam: PRESENT: atraumatic, normocephalic Eye exam: PRESENT: EOMI, PERRLA Ear exam: PRESENT: normal external ear exam Mouth exam: PRESENT: moist Neck exam: PRESENT: full ROM. ABSENT: JVD, tenderness Respiratory exam: PRESENT: clear to auscultation neda Cardiovascular exam: PRESENT: RRR. ABSENT: diastolic murmur, systolic murmur Vascular exam: PRESENT: normal capillary refill GI/Abdominal exam: PRESENT: normal bowel sounds, soft, tenderness Extremities exam: PRESENT: full ROM. ABSENT: joint swelling, pedal edema Neurological exam: PRESENT: alert, awake, oriented to person, oriented to place , oriented to time Psychiatric exam: PRESENT: appropriate affect, normal mood Results Laboratory Results: 06/15/17 06/15/17 06/15/17 05:00 15:35 23:15 Sodium 146.3 H Potassium 3.8 Chloride 116 H Carbon Dioxide 23 Anion Gap 7 BUN 13 Creatinine 0.68 Est GFR ( Amer) > 60 Est GFR (Non-Af Amer) > 60 Glucose 80 Calcium 8.9 Magnesium 1.9 Urine Color YELLOW Urine Appearance TURBID Urine pH 5.0 Ur Specific [place] 1.036 Urine Protein 100 H Urine Glucose (UA) NEGATIVE Urine Ketones TRACE H Urine Blood LARGE H Urine Nitrite NEGATIVE Ur Leukocyte Esterase TRACE H Urine WBC (Auto) 14 Urine RBC (Auto) >182 06/14/17 06/14/17 06/14/17 15:35 15:35 21:50 Creatine Kinase 2506 H 1498 H CK-MB (CK-2) 8.94 H Troponin I 0.207 06/14/17 21:50 Creatine Kinase CK-MB (CK-2) 7.09 H Troponin I 0.166 Impressions: Chest X-Ray 06/14/17 08:09 IMPRESSION: Dense left upper lobe consolidation worrisome for pneumonia Chest CT 06/15/17 00:00 IMPRESSION: Extensive left upper lobe pneumonia without identified mass. Ventral abdominal hernia containing nonobstructed bowel. Assessment & Plan - Diagnosis (1) Opioid dependence Qualifiers: Substance use status: uncomplicated Qualified Code(s): F11.20 - Opioid dependence, uncomplicated Is this a current diagnosis for this admission?: Yes Plan: Even though her long-standing does not appear to me that may be playing a role in her presentation (2) Chronic pain Qualifiers: Chronic pain type: chronic pain syndrome Qualified Code(s): G89.4 - Chronic pain syndrome Is this a current diagnosis for this admission?: Yes Plan: We will continue current regimen and will try to avoid heavy sedation since recuperating (3) Encephalopathy acute Is this a current diagnosis for this admission?: Yes Plan: Resolved (4) Hypokalemia Is this a current diagnosis for this admission?: Yes Plan: Replaced orally (5) Pneumonia Qualifiers: Pneumonia type: due to unspecified organism Laterality: left Lung location: lower lobe of lung Qualified Code(s): J18.1 - Lobar pneumonia, unspecified organism Is this a current diagnosis for this admission?: Yes Plan: CT of chest confirming pneumonic process in left upper lung. To discontinue vancomycin. Continue Zosyn and add doxycycline. Order cookie swallow. (6) Rhabdomyolysis Qualifiers: Rhabdomyolysis type: non-traumatic Qualified Code(s): M62.82 - Rhabdomyolysis Is this a current diagnosis for this admission?: Yes Plan: May relate to septic process. Improving and discontinue intravenous fluids since good oral intake. (7) Sepsis Qualifiers: Sepsis type: sepsis due to unspecified organism Qualified Code(s): A41.9 - Sepsis, unspecified organism Is this a current diagnosis for this admission?: Yes Plan: Due to pneumonic process and resolving (8) Elevated troponin Is this a current diagnosis for this admission?: Yes Plan: Due to myocardial oxygen demand ischemia in the setting of sepsis - Time Time Spent with patient: 15-24 minutes Medications reviewed and adjusted accordingly: Yes Anticipated discharge: Home Within: within 72 hours - Inpatient Certification Based on my medical assessment, after consideration of the patient's comorbidities, presenting symptoms, or acuity I expect that the services needed warrant INPATIENT care.: Yes I certify that my determination is in accordance with my understanding of Medicare's requirements for reasonable and necessary INPATIENT services [42 CFR 412.3e].: Yes Medical Necessity: Need for IV Antibiotics
[2017-06-16] MEDS: ACETAMINOPHEN 325 MG TABLET PO PRN ×2 (14:30→21:06)
[2017-06-16] MEDS: TRAZODONE HCL 50 MG TABLET PO SCH (22:11)
[2017-06-16] MEDS: DOXYCYCLINE HYCLATE 100 MG TABLET PO SCH (22:11)
[2017-06-16] MEDS: ARIPIPRAZOLE 5 MG TABLET PO SCH (22:11)
[2017-06-17] MEDS: PIPERACILLIN SODIUM/TAZOBACTAM 3.375 GM in NORMAL SALINE 100 ML IV SCH ×2 (00:56→06:43)
[2017-06-17] MEDS: IPRATROPIUM/ALBUTEROL 0.5-2.5 MG/3 ML AMPUL NEB SCH ×2 (01:53→08:03)
[2017-06-17 05:18] LABS: HEMATOCRIT 35.3 % (36.0-47.0); HEMOGLOBIN 11.6 g/dL (12.0-15.5); MEAN CORPUSCULAR HEMOGLOBIN 28.8 pg (27.0-33.4); MEAN CORPUSCULAR HGB CONC 32.8 g/dL (32.0-36.0); MEAN CORPUSCULAR VOLUME 88 fl (80-97); RED BLOOD COUNT 4.01 10^6/uL (3.72-5.28); RED CELL DISTRIBUTION WIDTH 13.8 % (11.5-14.0); WHITE BLOOD COUNT 9.4 10^3/uL (4.0-10.5)
[2017-06-17 05:40] LABS: ABSOLUTE LYMPHOCYTES# (MANUAL) 2.8 10^3/uL (0.5-4.7); ABSOLUTE MONOCYTES # (MANUAL) 0.6 10^3/uL (0.1-1.4); ABSOLUTE NEUTROPHILS# (MANUAL) 5.2 10^3/uL (1.7-8.2); BAND NEUTROPHILS % (MANUAL) 3 % (3-5); BASOPHILS % (MANUAL) 0 % (0-2); EOSINOPHILS % (MANUAL) 9 % (0-6); LYMPHOCYTES % (MANUAL) 27 % (13-45); MONOCYTES % (MANUAL) 6 % (3-13); SEGMENTED NEUTROPHILS % (MAN) 52 % (42-78); TOTAL CELLS COUNTED 100
[2017-06-17 05:42] LABS: ALANINE AMINOTRANSFERASE 88 U/L (9-52); ALBUMIN 2.6 g/dL (3.5-5.0); ALKALINE PHOSPHATASE 82 U/L (38-126); ANION GAP 8 (5-19); ASPARTATE AMINO TRANSFERASE 72 U/L (14-36); BILIRUBIN,DIRECT 0.3 mg/dL (0.0-0.4); BILIRUBIN,TOTAL 0.6 mg/dL (0.2-1.3); BLOOD UREA NITROGEN 9 mg/dL (7-20); CALCIUM 9.2 mg/dL (8.4-10.2); CARBON DIOXIDE 22 mmol/L (22-30); CHLORIDE 115 mmol/L (98-107); GLUCOSE 83 mg/dL (75-110); POTASSIUM 4.5 mmol/L (3.6-5.0); SODIUM 144.5 mmol/L (137-145)
[2017-06-17 05:44] LABS: ACANTHOCYTES SLIGHT; OVALOCYTES SLIGHT; PLATELET CLUMPS PRESENT; PLATELET COMMENT ADEQUATE; POIKILOCYTOSIS SLIGHT; TOXIC GRANULATION 1+; TOXIC VACUOLATION PRESENT
[2017-06-17 05:45] LABS: PLATELET COUNT 193 10^3/uL (150-450)
[2017-06-17] MEDS: LEVOTHYROXINE SODIUM 0.075 MG TABLET PO SCH (06:43)
[2017-06-17] MEDS: HEPARIN SOD (PORCINE) 5,000 UNIT/ML 1 ML SYRINGE SUBCUT SCH ×3 (06:43→21:21)
[2017-06-17] MEDS: ACETAMINOPHEN 325 MG TABLET PO PRN ×2 (07:15→17:11)
[2017-06-17] MEDS: PREGABALIN 50 MG CAPSULE PO SCH ×2 (10:45→21:21)
[2017-06-17] MEDS: FLUTICASONE NASAL SPRAY 50 MCG/SPRY 120 SPRAY/16 GM NASL SCH ×2 (10:46→21:22)
[2017-06-17] MEDS: GUAIFENESIN 600 MG TABLET.SA PO SCH ×2 (10:46→21:21)
[2017-06-17] MEDS: VENLAFAXINE HCL 75 MG CAP.SR.24H PO SCH ×2 (10:46→21:21)
[2017-06-17] MEDS: PROPRANOLOL HCL 20 MG TABLET PO SCH ×2 (10:46→21:21)
[2017-06-17] MEDS: DOXYCYCLINE HYCLATE 100 MG TABLET PO SCH ×2 (10:46→21:20)
[2017-06-17] MEDS ORDERED: IPRATROPIUM/ALBUTEROL 0.5-2.5 MG/3 ML AMPUL NEB PRN (11:10)
--- NOTE | 2017-06-17 11:20 | PDOC PROGRESS REPORT ---
Subjective Progress Note for:: 06/17/17 Subjective:: Patient relates that she is doing a lot better and wonders when she will be able to go home Reason For Visit: SEPSIS,PNEUMONIA Physical Exam Vital Signs: Temp Pulse Resp BP Pulse Ox 97.5 F 73 20 132/71 H 100 06/17/17 04:08 06/17/17 04:08 06/17/17 04:08 06/17/17 04:08 06/17/17 04:08 Intake & Output 06/16/17 06/17/17 06/18/17 06:59 06:59 06:59 Intake Total 3619 1890 Output Total 500 900 Balance 3119 990 Weight 123.1 kg 125.2 kg General appearance: PRESENT: no acute distress, cooperative, morbidly obese Head exam: PRESENT: atraumatic, normocephalic Eye exam: PRESENT: EOMI, PERRLA Ear exam: PRESENT: normal external ear exam Mouth exam: PRESENT: moist, neck supple Neck exam: PRESENT: full ROM. ABSENT: JVD, tenderness Respiratory exam: PRESENT: clear to auscultation neda Cardiovascular exam: PRESENT: RRR. ABSENT: diastolic murmur, systolic murmur Vascular exam: PRESENT: normal capillary refill GI/Abdominal exam: PRESENT: normal bowel sounds, soft. ABSENT: tenderness Extremities exam: ABSENT: joint swelling, pedal edema Neurological exam: PRESENT: alert, awake, oriented to person, oriented to place , oriented to time Psychiatric exam: PRESENT: appropriate affect, normal mood Results Laboratory Results: 06/17/17 04:28 06/17/17 04:28 06/16/17 06/17/17 06/17/17 05:43 04:28 04:28 WBC 9.4 RBC 4.01 Hgb 11.6 L Hct 35.3 L MCV 88 MCH 28.8 MCHC 32.8 RDW 13.8 Plt Count 193 Seg Neutrophils % Not Reportable Lymphocytes % Not Reportable Monocytes % Not Reportable Eosinophils % Not Reportable Basophils % Not Reportable Absolute Neutrophils Not Reportable Absolute Lymphocytes Not Reportable Absolute Monocytes Not Reportable Absolute Eosinophils Not Reportable Absolute Basophils Not Reportable Sodium 146.5 H 144.5 Potassium 4.5 4.5 Chloride 116 H 115 H Carbon Dioxide 22 22 Anion Gap 9 8 BUN 11 9 Creatinine 0.71 0.71 Est GFR ( Amer) > 60 > 60 Est GFR (Non-Af Amer) > 60 > 60 Glucose 76 83 Calcium 9.0 9.2 Magnesium 2.3 Total Bilirubin 0.6 0.6 AST 115 H 72 H ALT 95 H 88 H Alkaline Phosphatase 87 82 Total Protein 4.9 L 5.0 L Albumin 2.6 L 2.6 L 06/14/17 06/14/17 06/14/17 15:35 15:35 21:50 Creatine Kinase 2506 H 1498 H CK-MB (CK-2) 8.94 H Troponin I 0.207 06/14/17 06/16/17 21:50 05:43 Creatine Kinase 418 H CK-MB (CK-2) 7.09 H Troponin I 0.166 Impressions: Chest X-Ray 06/14/17 08:09 IMPRESSION: Dense left upper lobe consolidation worrisome for pneumonia Chest CT 06/15/17 00:00 IMPRESSION: Extensive left upper lobe pneumonia without identified mass. Ventral abdominal hernia containing nonobstructed bowel. Assessment & Plan - Diagnosis (1) Opioid dependence Qualifiers: Substance use status: uncomplicated Qualified Code(s): F11.20 - Opioid dependence, uncomplicated Is this a current diagnosis for this admission?: Yes Plan: Even though her long-standing does not appear to me that may be playing a role in her presentation. However there could be a possibility that oversedation may have caused for her to aspirate and to order cookie swallow. Discussed with patient and family that were at bedside (2) Chronic pain Qualifiers: Chronic pain type: chronic pain syndrome Qualified Code(s): G89.4 - Chronic pain syndrome Is this a current diagnosis for this admission?: Yes Plan: We will continue current regimen and will try to avoid heavy sedation since recuperating (3) Encephalopathy acute Is this a current diagnosis for this admission?: Yes Plan: Resolved (4) Hypokalemia Is this a current diagnosis for this admission?: Yes Plan: Replaced orally (5) Pneumonia Qualifiers: Pneumonia type: due to unspecified organism Laterality: left Lung location: lower lobe of lung Qualified Code(s): J18.1 - Lobar pneumonia, unspecified organism Is this a current diagnosis for this admission?: Yes Plan: CT of chest confirming pneumonic process in left upper lung. Ordered cookie swallow to evaluate for aspiration. Change antibiotic to augmentin and continue doxycycline. Order cxr primarily to verify if no worsening since may take up a month before cxr clears. (6) Rhabdomyolysis Qualifiers: Rhabdomyolysis type: non-traumatic Qualified Code(s): M62.82 - Rhabdomyolysis Is this a current diagnosis for this admission?: Yes Plan: May relate to septic process. Resolved. (7) Sepsis Qualifiers: Sepsis type: sepsis due to unspecified organism Qualified Code(s): A41.9 - Sepsis, unspecified organism Is this a current diagnosis for this admission?: Yes Plan: Due to pneumonic process and resolved (8) Elevated troponin Is this a current diagnosis for this admission?: Yes Plan: Due to myocardial oxygen demand ischemia in the setting of sepsis - Time Time Spent with patient: 15-24 minutes Medications reviewed and adjusted accordingly: Yes Anticipated discharge: Home Within: within 48 hours - Inpatient Certification Based on my medical assessment, after consideration of the patient's comorbidities, presenting symptoms, or acuity I expect that the services needed warrant INPATIENT care.: Yes I certify that my determination is in accordance with my understanding of Medicare's requirements for reasonable and necessary INPATIENT services [42 CFR 412.3e].: Yes Medical Necessity: Other - aspiration evaluation
--- NOTE | 2017-06-17 12:01 | RADIOLOGY REPORT (SQ) ---
EXAM DESCRIPTION: CHEST PA/LAT COMPLETED DATE/TIME: 06/17/2017 11:44 am REASON FOR STUDY: follow up COMPARISON: None. EXAM PARAMETERS: NUMBER OF VIEWS: two views TECHNIQUE: Digital Frontal and Lateral radiographic views of the chest acquired. RADIATION DOSE: NA LIMITATIONS: none FINDINGS: LUNGS AND PLEURA: Multifocal airspace disease left upper lobe which has improved slightly from prior study. No new airspace disease identified. Possible trace left pleural effusion. MEDIASTINUM AND HILAR STRUCTURES: No masses or contour abnormalities. HEART AND VASCULAR STRUCTURES: Heart stable size. No evidence for failure. BONES: No acute findings. HARDWARE: None in the chest. OTHER: No other significant finding. IMPRESSION: IMPROVING LEFT UPPER LOBE AIRSPACE DISEASE. FOLLOW-UP RADIOGRAPHS IN 4 TO 6 WEEKS RECOM MENDED TO ENSURE COMPLETE RESOLUTION. TECHNICAL DOCUMENTATION: JOB ID: [id number] [employer]- All Rights Reserved
[2017-06-17] MEDS: AMOXICILLIN TR/POT CLAVULANATE 500-125 MG TAB PO SCH ×2 (16:36→21:21)
[2017-06-17] MEDS: TRAZODONE HCL 50 MG TABLET PO SCH (21:21)
[2017-06-17] MEDS: ARIPIPRAZOLE 5 MG TABLET PO SCH (21:21)
[2017-06-17] MEDS: FLUTICASONE/SALMETEROL DISKUS 250-50 MCG/DOSE IH SCH (21:22)
[2017-06-18] MEDS: HEPARIN SOD (PORCINE) 5,000 UNIT/ML 1 ML SYRINGE SUBCUT SCH (05:27)
[2017-06-18] MEDS: AMOXICILLIN TR/POT CLAVULANATE 500-125 MG TAB PO SCH (05:27)
[2017-06-18] MEDS: LEVOTHYROXINE SODIUM 0.075 MG TABLET PO SCH (05:27)
[2017-06-18 06:11] LABS: ABSOLUTE EOSINOPHILS # (AUTO) 0.5 10^3/uL (0.0-0.6); ABSOLUTE MONOCYTES (AUTO) 1.2 10^3/uL (0.1-1.4); ABSOLUTE NEUT (AUTO) 5.8 10^3/uL (1.7-8.2); BASOPHILS % (AUTO) 0.5 % (0-2); HEMATOCRIT 36.4 % (36.0-47.0); LYMPHOCYTES % (AUTO) 20.6 % (13-45); MEAN CORPUSCULAR HEMOGLOBIN 28.8 pg (27.0-33.4); MEAN CORPUSCULAR HGB CONC 32.9 g/dL (32.0-36.0); MEAN CORPUSCULAR VOLUME 87 fl (80-97); MONOCYTES % (AUTO) 12.8 % (3-13); PLATELET COUNT 221 10^3/uL (150-450); RED BLOOD COUNT 4.16 10^6/uL (3.72-5.28); RED CELL DISTRIBUTION WIDTH 13.6 % (11.5-14.0); SEGMENTED NEUTROPHILS % (AUTO) 61.1 % (42-78); TOTAL CELLS COUNTED % (AUTO) 100 %; WHITE BLOOD COUNT 9.5 10^3/uL (4.0-10.5)
[2017-06-18 06:27] LABS: ALANINE AMINOTRANSFERASE 69 U/L (9-52); ALBUMIN 2.9 g/dL (3.5-5.0); ALKALINE PHOSPHATASE 85 U/L (38-126); ANION GAP 9 (5-19); ASPARTATE AMINO TRANSFERASE 60 U/L (14-36); BILIRUBIN,DIRECT 0.4 mg/dL (0.0-0.4); BILIRUBIN,TOTAL 0.5 mg/dL (0.2-1.3); BLOOD UREA NITROGEN 7 mg/dL (7-20); CALCIUM 9.3 mg/dL (8.4-10.2); CARBON DIOXIDE 23 mmol/L (22-30); CHLORIDE 115 mmol/L (98-107); GLUCOSE 84 mg/dL (75-110); POTASSIUM 4.1 mmol/L (3.6-5.0); SODIUM 146.5 mmol/L (137-145); TOTAL PROTEIN 5.8 g/dL (6.3-8.2)
[2017-06-18 07:57] VITALS: BP 138/71
[2017-06-18] MEDS: DOXYCYCLINE HYCLATE 100 MG TABLET PO SCH (10:10)
[2017-06-18] MEDS: FLUTICASONE/SALMETEROL DISKUS 250-50 MCG/DOSE IH SCH (10:10)
[2017-06-18] MEDS: PREGABALIN 50 MG CAPSULE PO SCH (10:11)
[2017-06-18] MEDS: GUAIFENESIN 600 MG TABLET.SA PO SCH (10:11)
[2017-06-18] MEDS: ACETAMINOPHEN 325 MG TABLET PO PRN (10:11)
[2017-06-18] MEDS: VENLAFAXINE HCL 75 MG CAP.SR.24H PO SCH (10:11)
[2017-06-18] MEDS: PROPRANOLOL HCL 20 MG TABLET PO SCH (10:11)
[2017-06-18] MEDS: FLUTICASONE NASAL SPRAY 50 MCG/SPRY 120 SPRAY/16 GM NASL SCH (10:12)
--- NOTE | 2017-06-18 10:48 | ST Inp Modified Barium Swallow ---
Medical Diagnosis - Medical Diagnoses Medical Diagnosis Description & ICD-10 Code(s): sepsis, pneumonia per history & physical ST Inpatient [facility] [place] - General Date: 06/18/16 Date of Onset: 06/14/17 - History History Obtained From: Patient, Other - history & physical Medications: Medications Reviewed Allergies: No known allergies - Subjective Current Nutritional Means: PO Current PO Diet: Regular Current Symptoms: Pneumonia - thin liquids - Objective Assessment: Upright, Left Lateral - Food Trials Food Trials Used: Thin liquids, Pureed, Regular The Patient: Was Able to Self Feed - Assessment Labial Function: Within Normal Limits Lingual Function: Within Normal Limits Mandibular Function: Within Normal Limits - Pharyngeal Stage Initiation of Pharyngeal Stage: Normal Decreased Laryngeal Elevation: No Reduced Velo-Pharyngeal Closure: no Reduced Pressure Generation: No Reduced Tongue Base Retraction: No Pre-Swallowing Pooling in Valleculae: Mild Pre-Swallowing Pooling in Pyriforms: Mild - swallow initated within 1 second at the level of the pyriforms Reduced Thyro-Hyiod Approximation: No Reduced Epiglottic Excursion: No Reduced Pharyngeal Peristalsis: No Multiple Swallows With: Effective Post Swallow Residuals in Valleculae: None Post Swallow Residuals in Pyriforms: None Post Swallow Residuals: no residuals - Esophageal Stage Cricophageal Function: Normal Upper Esophageal Transit: Normal - Impression/Summary Laryngeal Penetration: No Tracheal Aspiration: no Risk of Aspiration: Minimal - Recommendations Solid Diet Recommendations: Regular Liquid Diet Recommendations: Thin Regular Diet: Yes Strict Aspitarion Precautions: Yes Dysphagia Therapy with BIT SHAVER: No Recommended Techniques: Fully Upright During Meal Supervision: Independent - Time Total Time: 10 Total Timed Minutes: 10
--- NOTE | 2017-06-18 11:23 | RADIOLOGY REPORT (SQ) ---
EXAM DESCRIPTION: TAYIE SWALLOW COMPLETED DATE/TIME: 06/18/2017 8:22 am REASON FOR STUDY: Dysphagia unspecified R 13.10, food in pharynx causing other injury, sequela T17.2 28 S eval for aspiration COMPARISON: None. TECHNIQUE: Videofluoroscopic swallowing examination was performed in conjunction with speech patholo gy. Videofluoroscopic imaging was obtained and reviewed and these are the findings: RADIATION DOSE: Total fluoroscopy time: 59 seconds 1 fluoroscopy image saved to PACS. LIMITATIONS: None FINDINGS: The patient was brought into the fluoro room and placed upright on a modified barium swall ow chair. The patient was then given multiple consistencies mixed with barium to swallow under live fluoroscopic video guidance. According to the Speech Pathologist there was no laryngeal penetration or tracheal aspiration. Normal oral and pharyngeal transit time was observed. No significant post s wallow residual was seen. Please see speech pathology report for further details and recommendations . IMPRESSION: NO EVIDENCE OF LARYNGEAL PENETRATION OR TRACHEAL ASPIRATION.PLEASE SEE SPEECH PATHOLOGIS T REPORT FOR OTHER FINDINGS AND RECOMMENDATIONS. COMMENT: Quality ID [id number]: Final reports for procedures using fluoroscopy that document radiation exp osure indices, or exposure time and number of fluorographic images (if radiation exposure indices are not available) TECHNICAL DOCUMENTATION: JOB ID: [id number] [employer]- All Rights Reserved
--- NOTE | 2017-06-18 12:21 | PDOC DISCHARGE SUMMARY ---
General - Admit/Disc Date/PCP Admission Date/Primary Care Provider: 06/14/17 10:33 MOLLY RINCON MD Discharge Date: 06/18/17 - Discharge Diagnosis (1) Sepsis Is this a current diagnosis for this admission?: Yes Summary: Secondary to pneumonia. Patient's blood cultures have been negative. (2) Encephalopathy acute Is this a current diagnosis for this admission?: Yes Summary: Most likely secondary to her acute infection. (3) Pneumonia Is this a current diagnosis for this admission?: Yes (4) Rhabdomyolysis Is this a current diagnosis for this admission?: Yes (5) Depression Is this a current diagnosis for this admission?: Yes (6) Opioid dependence Is this a current diagnosis for this admission?: Yes - Additional Information Resuscitation Status: Full Code Discharge Diet: As Tolerated Discharge Activity: Activity As Tolerated Prescriptions: Amox Tr/Potassium Clavulanate [Augmentin "500" Tablet] 1 tab PO Q8 #14 tablet Doxycycline Hyclate [Vibramycin 100 mg Tablet] 100 mg PO Q12 #10 tablet Fluticasone/Salmeterol [Advair 250-50 Diskus 14 Dose/Diskus] 1 inh IH Q12 #1 inhaler Home Medications: Albuterol Sulfate [Proair HFA Inhalation Aerosol 8.5 gm MDI] 2 puff IH Q6HP PRN 06/14/17 Aripiprazole [Abilify 15 mg Tablet] 15 mg PO QHS 06/14/17 Calcium Carbonate [Calcium] 1,200 mg PO BID 06/14/17 Cholecalciferol (Vitamin D3) [Vitamin D3 2000 unit Tablet] 2,000 unit PO DAILY 06/14/17 Cyanocobalamin (Vitamin B-12) [Vitamin B-12 SL 2500 mcg Tablet] 2,500 mcg SL Q48H 06/14/17 Furosemide [Lasix 40 mg Tablet] 40 mg PO BID 06/14/17 Glucosamine HCl 1,500 mg PO BID 06/14/17 Lansoprazole [Prevacid 30 mg Odt Tablet] 30 mg PO [id number] 06/14/17 Levothyroxine Sodium [Synthroid 0.075 mg Tablet] 0.075 mg PO Q6AM 06/14/17 Multivitamin [Tab-A-Teetee (Multiple Vitamin) Tablet] 1 tab PO DAILY 06/14/17 [place]-3 Fatty Acids/Fish Oil [[place] 3 Fish Oil Softgel] 1 each PO TID 06/14/17 Oxycodone HCl/Acetaminophen [Percocet 5-325 mg Tablet] 1 tab PO Q8HP PRN Potassium Gluconate 595 Mg Tablet 595 mg PO DAILY 06/14/17 Pregabalin [Lyrica 75 mg Capsule] 75 mg PO Q8 06/14/17 Propranolol HCl [Inderal 20 mg Tablet] 20 mg PO Q12 06/14/17 Rosuvastatin Calcium [Crestor 20 mg Tablet] 20 mg PO DAILY 06/14/17 Tapentadol HCl [Nucynta ER] 150 mg PO Q12 06/14/17 Trazodone HCl [Desyrel 50 mg Tablet] 100 mg PO QHS 06/14/17 Venlafaxine HCl ER [Effexor Xr 75 mg Cap.sr] 75 mg PO Q8 06/14/17 Vitamin E (Dl, Acetate) [Vitamin E 400 Unit Capsule] 400 unit PO DAILY 06/14/17 Zolpidem Tartrate [Ambien 5 mg Tablet] 10 mg PO QHS 06/14/17 Amox Tr/Potassium Clavulanate [Augmentin "500" Tablet] 1 tab PO Q8 #14 tablet 06/18/17 Doxycycline Hyclate [Vibramycin 100 mg Tablet] 100 mg PO Q12 #10 tablet Fluticasone/Salmeterol [Advair 250-50 Diskus 14 Dose/Diskus] 1 inh IH Q12 #1 inhaler 06/18/17 History of Present Illness History of Present Illness: PAULINE BOSCH is a 67 year old female with a history of fibromyalgia as well as chronic pain requiring opioids who presented with agitation and confusion. Patient reports that she has had symptoms for 48 hours with lethargy. The patient is found to have fever, tachycardia, tachypnea and a left -sided pneumonia. She is admitted for treatment of pneumonia with acute encephalopathy. Hospital Course Hospital Course: 67-year-old female who presented with acute encephalopathy and left-sided pneumonia. The patient was initially admitted to the ICU because of sepsis with some relatively low blood pressures. She responded to IV fluids as well as antibiotics. The patient was initially treated with IV antibiotics but was switched to Augmentin and doxycycline. The patient has been tolerating that well and her encephalopathy has completely resolved. The patient has negative cultures and she is back to her baseline. She is oxygenating well on room air. She will be sent home with a course of antibiotics of doxycycline and Augmentin, to finish and will follow up with her primary care doctor in 2 weeks. Physical Exam Vital Signs: Temp Pulse Resp BP Pulse Ox 98.3 F 76 16 138/71 H 96 06/18/17 10:37 06/18/17 10:37 06/18/17 10:37 06/18/17 07:18 06/18/17 10:37 Intake & Output 06/17/17 06/18/17 06/19/17 06:59 06:59 06:59 Intake Total 1890 1664 Output Total 900 400 Balance 990 1264 Weight 125.2 kg 127.5 kg General appearance: PRESENT: no acute distress Eye exam: PRESENT: conjunctiva pink. ABSENT: scleral icterus Mouth exam: PRESENT: moist, tongue midline Neck exam: ABSENT: JVD Respiratory exam: PRESENT: clear to auscultation neda. ABSENT: rales, rhonchi, wheezes Cardiovascular exam: PRESENT: RRR. ABSENT: diastolic murmur, rubs, systolic murmur GI/Abdominal exam: PRESENT: normal bowel sounds, soft. ABSENT: distended, guarding, mass, organolmegaly, rebound, tenderness Extremities exam: ABSENT: calf tenderness, clubbing, pedal edema Neurological exam: PRESENT: alert, awake, oriented to person, oriented to place , oriented to time, oriented to situation, CN II-XII grossly intact. ABSENT: motor sensory deficit Psychiatric exam: PRESENT: appropriate affect Skin exam: PRESENT: dry, intact, warm. ABSENT: cyanosis, rash Results Laboratory Results: 06/18/17 05:07 06/18/17 05:07 06/18/17 06/18/17 05:07 05:07 WBC 9.5 RBC 4.16 Hgb 12.0 Hct 36.4 MCV 87 MCH 28.8 MCHC 32.9 RDW 13.6 Plt Count 221 Seg Neutrophils % 61.1 Lymphocytes % 20.6 Monocytes % 12.8 Eosinophils % 5.0 Basophils % 0.5 Absolute Neutrophils 5.8 Absolute Lymphocytes 2.0 Absolute Monocytes 1.2 Absolute Eosinophils 0.5 Absolute Basophils 0.0 Sodium 146.5 H Potassium 4.1 Chloride 115 H Carbon Dioxide 23 Anion Gap 9 BUN 7 Creatinine 0.65 Est GFR ( Amer) > 60 Est GFR (Non-Af Amer) > 60 Glucose 84 Calcium 9.3 Total Bilirubin 0.5 AST 60 H ALT 69 H Alkaline Phosphatase 85 Total Protein 5.8 L Albumin 2.9 L 06/15/17 23:15 Catheterized Urine Urine Culture - Final NO GROWTH 2 DAYS 06/14/17 06/14/17 06/14/17 15:35 15:35 21:50 Creatine Kinase 2506 H 1498 H CK-MB (CK-2) 8.94 H Troponin I 0.207 06/14/17 06/16/17 21:50 05:43 Creatine Kinase 418 H CK-MB (CK-2) 7.09 H Troponin I 0.166 Impressions: Chest CT 06/15/17 00:00 IMPRESSION: Extensive left upper lobe pneumonia without identified mass. Ventral abdominal hernia containing nonobstructed bowel. Chest X-Ray 06/17/17 00:00 IMPRESSION: IMPROVING LEFT UPPER LOBE AIRSPACE DISEASE. FOLLOW-UP RADIOGRAPHS IN 4 TO 6 WEEKS RECOMMENDED TO ENSURE COMPLETE RESOLUTION. Modified Barium Swallow 06/18/17 00:00 IMPRESSION: NO EVIDENCE OF LARYNGEAL PENETRATION OR TRACHEAL ASPIRATION.PLEASE SEE SPEECH PATHOLOGIST REPORT FOR OTHER FINDINGS AND RECOMMENDATIONS. Qualifiers PATEINT BEING DISCHARGED WITH ANY OF THE FOLLOWING DIAGNOSIS?: No Plan Discharge Plan: Patient is discharged home in stable condition. Follow-up with primary care in 2 weeks. Time Spent: Greater than 30 Minutes
== END 2017-06-18 11:45 | disposition home or self-care (01) | DRG 871 ==
LOC: ER 07:56 → EH 10:33 → 3W 12:41
PROVIDERS: ADMIT Internal Medicine; ATTEND Internal Medicine
DX: A41.9 Sepsis, unspecified organism (principal); J18.9 Pneumonia, unspecified organism; G93.40 Encephalopathy, unspecified; F11.20 Opioid dependence, uncomplicated; M62.82 Rhabdomyolysis; Z68.43 Body mass index [BMI] 50.0-59.9, adult; E87.6 Hypokalemia; E03.9 Hypothyroidism, unspecified; I50.9 Heart failure, unspecified; E78.5 Hyperlipidemia, unspecified; K21.9 Gastro-esophageal reflux disease without esophagitis; R41.82 Altered mental status, unspecified; G89.29 Other chronic pain; F32.9 Major depressive disorder, single episode, unspecified; F41.9 Anxiety disorder, unspecified; M79.7 Fibromyalgia; E66.01 Morbid (severe) obesity due to excess calories
CPT/HCPCS: 36415; 51702; 71010; 71046; 71250; 74230; 80048; 80053; 80307; 81001; 82550; 82553; 82803; 83605; 83735; 83880; 84443; 84484; 85025; 85610; 87040; 87086; 93005; 93010; 94660; 94667; 94668; 94799; 96361; 96365; 96375; 99291; G8996-GN; G8997-GN; G8998-GN; J0696; J1644; J2060; J2543; J3370; J3475; J3480; J3490; J7030; J7060; J7620

== ENCOUNTER 2017-07-25 13:52 | Inpatient (IN) | payer MEDICARE, OTHER ==
[2017-07-25] MEDS ORDERED: IBUPROFEN 800 MG TABLET PO ONE (14:06)
[2017-07-25] MEDS ORDERED: CEFTRIAXONE 1 GM/D5W RTU 50 ML IV ONE (14:06)
--- NOTE | 2017-07-25 14:14 | ER Document Report ---
ED Medical Screen (RME) - General Chief Complaint: Breathing Difficulty Stated Complaint: BREATHING PROBLEMS Time Seen by Provider: 07/25/17 14:06 Mode of Arrival: Wheelchair Information source: Patient Notes: 67-year-old female presents with 1 day duration of cough shortness of breath patient denies white sputum productive. Patient exposed to the flu I have greeted and performed a rapid initial assessment of this patient. A comprehensive ED assessment and evaluation of the patient, analysis of test results and completion of the medical decision making process will be conducted by additional ED providers. PHYSICAL EXAMINATION: GENERAL: Well-appearing, well-nourished and in no acute distress. Febrile HEAD: Atraumatic, normocephalic. EYES: Pupils equal round extraocular movements intact, conjunctiva are normal. ENT: Nares patent NECK: Normal range of motion LUNGS: tachypneic Tachycardic Musculoskeletal: Normal range of motion NEUROLOGICAL: Normal speech, normal gait. PSYCH: Normal mood, normal affect. SKIN: Warm, Dry, normal turgor, no rashes or lesions noted. TRAVEL OUTSIDE OF THE [place] IN LAST 30 DAYS: No - Related Data Allergies/Adverse Reactions: No Known Allergies Allergy (Verified 07/25/17 13:53) Past Medical History - Social History Frequency of alcohol use: None Drug Abuse: None - Past Medical History Cardiac Medical History: Reports: Hx Congestive Heart Failure, Hx Hypercholesterolemia Endocrine Medical History: Reports: Hx Hypothyroidism Renal/ Medical History: Denies: Hx Peritoneal Dialysis GI Medical History: Reports: Hx Gastroesophageal Reflux Disease Psychiatric Medical History: Reports: Hx Depression Past Surgical History: Reports: Hx Section, Hx Cholecystectomy - Immunizations History of Influenza Vaccine for 03/2017 - 08/2017 Season: Yes Influenza Administration Date for 03/2017 - 08/2017 Season: 02/15/17 Physical Exam - Vital signs Vitals: Temp Pulse Resp BP Pulse Ox 103.1 F H 115 H 32 H 150/74 H 92 07/25/17 14:00 07/25/17 14:00 07/25/17 14:07/25/17 14:00 07/25/17 14:00 Course - Vital Signs Vital signs: Temp Pulse Resp BP Pulse Ox 103.1 F H 115 H 32 H 150/74 H 92 07/25/17 14:00 07/25/17 14:00 07/25/17 14:00 07/25/17 14:00 07/25/17 14:00
--- NOTE | 2017-07-25 15:12 | RADIOLOGY REPORT (SQ) ---
EXAM DESCRIPTION: CHEST PA/LAT COMPLETED DATE/TIME: 07/25/2017 3:01 pm REASON FOR STUDY: cough ,fever COMPARISON: 06/17/2017 EXAM PARAMETERS: NUMBER OF VIEWS: two views TECHNIQUE: Digital Frontal and Lateral radiographic views of the chest acquired. RADIATION DOSE: NA LIMITATIONS: none FINDINGS: LUNGS AND PLEURA: No opacities, masses or pneumothorax. No pleural effusion. There is durga e minimal blunting of the left costophrenic angle unchanged from the previous study most consistent w ith pleural reaction. There is some prominence of the bronchovascular markings and the possibility o f peribronchial inflammatory changes cannot be excluded MEDIASTINUM AND HILAR STRUCTURES: No masses or contour abnormalities. HEART AND VASCULAR STRUCTURES: The configuration of the heart and mediastinal structures is unchanged BONES: No acute findings. HARDWARE: None in the chest. OTHER: No other significant finding. IMPRESSION: No acute consolidations or pleural effusions. There is some prominence of the bronchova scular markings and the possibility of peribronchial inflammatory changes cannot be excluded. Other findings as noted above TECHNICAL DOCUMENTATION: JOB ID: [id number] [email or web address]- All Rights Reserved
[2017-07-25] MEDS ORDERED: CEFTRIAXONE SODIUM 1,000 MG in NORMAL SALINE 50 ML IV ONE (15:30)
[2017-07-25 15:41] LABS: VENOUS BLOOD HCO3 26.7 mmol/L (20-32); VENOUS BLOOD PCO2 38.1 mmHg (35-63); VENOUS BLOOD PH 7.46 (7.30-7.42)
[2017-07-25 15:42] LABS: HEMATOCRIT 38.1 % (36.0-47.0); HEMOGLOBIN 12.6 g/dL (12.0-15.5); MEAN CORPUSCULAR HEMOGLOBIN 28.1 pg (27.0-33.4); MEAN CORPUSCULAR VOLUME 85 fl (80-97); PLATELET COUNT 192 10^3/uL (150-450); RED BLOOD COUNT 4.46 10^6/uL (3.72-5.28); RED CELL DISTRIBUTION WIDTH 15.3 % (11.5-14.0); WHITE BLOOD COUNT 6.3 10^3/uL (4.0-10.5)
--- NOTE | 2017-07-25 15:42 | ER Document Report ---
ED Respiratory Problem - General Chief Complaint: Breathing Difficulty Stated Complaint: BREATHING PROBLEMS Time Seen by Provider: 07/25/17 14:06 Mode of Arrival: Wheelchair Notes: Patient is a 67-year-old female who presents emergency department with a chief complaint of nonproductive cough, shortness of breath. Patient was recently discharged on June 18 after being admitted for sepsis secondary to pneumonia with associated encephalopathy. Patient was discharged home on doxycycline and Augmentin which she completed. She states that ever since she was discharged she has been complaining of chronic wheezing, shortness of breath. She states that yesterday her shortness of breath got worse, with orthopnea, dyspnea on exertion and now a cough with mucus. She admits to intermittent fevers at home. She admits to recent flu exposure. Otherwise denies any weight gain, leg swelling. She did receive a flu vaccine this year. Primary care is with Dr. gume Diego past medical history significant for history of fibromyalgia, Chronic pain on opiates, previous right breast malignancy status post lumpectomy and chemo rad, previous [place] with a history of coronary artery disease proximate 10 years ago. Possible history of COPD given that the patient was discharged home on Advair and albuterol. Patient does have a significant history of mental health problems. Past surgical history significant for gastric bypass, cholecystectomy, ventral hernia repair, right lumpectomy, bilateral total knee replacements, 3 previous C-sections. Denies any tobacco, alcohol or drug use. TRAVEL OUTSIDE OF THE [place] IN LAST 30 DAYS: No - Related Data Allergies/Adverse Reactions: No Known Allergies Allergy (Verified 07/25/17 13:53) Past Medical History - General Information source: Patient - Social History Smoking Status: Never Smoker Frequency of alcohol use: None Drug Abuse: None Family History: Reviewed & Not Pertinent Patient has suicidal ideation: No Patient has homicidal ideation: No - Past Medical History Cardiac Medical History: Reports: Hx Congestive Heart Failure, Hx Hypercholesterolemia Endocrine Medical History: Reports: Hx Hypothyroidism Renal/ Medical History: Denies: Hx Peritoneal Dialysis GI Medical History: Reports: Hx Gastroesophageal Reflux Disease Psychiatric Medical History: Reports: Hx Depression Past Surgical History: Reports: Hx Section, Hx Cholecystectomy Review of Systems - Review of Systems Constitutional: See HPI Cardiovascular: No symptoms reported Respiratory: See HPI Gastrointestinal: No symptoms reported Musculoskeletal: No symptoms reported Neurological/Psychological: No symptoms reported -: Yes All other systems reviewed and negative Physical Exam - Vital signs Vitals: Temp Pulse Resp BP Pulse Ox 103.1 F H 115 H 32 H 150/74 H 92 07/25/17 14:00 07/25/17 14:00 07/25/17 14:00 07/25/17 14:00 07/25/17 14:00 Interpretation: Tachycardic, Hypoxic - Patient saturating 89-92% on room air. - Notes Notes: PHYSICAL EXAM GENERAL: Alert, interacts well. HEAD: Normocephalic, atraumatic. EYES: Pupils equal, round, and reactive to light. Extraocular movements intact. ENT: Oral mucosa moist, tongue midline. NECK: Full range of motion. Supple. Trachea midline. LUNGS: Clear to auscultation throughout the right lung as well as left upper lobe. There is audible wheezing and crackles in left lower lobe. No audible rales throughout.. No respiratory distress. HEART: Regular rate and rhythm. No murmurs, gallops, or rubs. ABDOMEN: Soft, nondistended, nontender. No guarding, rebound, or rigidity.. Bowel sounds present in all 4 quadrants. EXTREMITIES: Moves all 4 extremities spontaneously. No edema, radial and dorsalis pedis pulses 2/4 bilaterally. No cyanosis. NEUROLOGICAL: Alert and oriented x4. Normal speech. PSYCH: Normal affect, normal mood. SKIN: Warm, dry, normal turgor. No rashes or lesions noted. Course - Re-evaluation Re-evalutation: 07/25/17 19:04 Patient is a 67-year-old female who presents emergency department with a chief complaint of shortness of breath and cough. Her presentation is consistent with acute respiratory failure secondary to viral exposure. Patient received multiple breathing treatments as well as Solu-Medrol. She states that she clinically felt better and she was ambulated D satting down to 80-89% recovering to about 90-92%. When she was discharged approximately a month ago her sats were 96% at the lowest. Without any history of proven underlying lung disease, concerning for decompensation if discharged home. 07/25/17 19:36 Patient has been admitted to inpatient telemetry under Dr. Doshi for acute respiratory failure with hypoxia due to viral syndrome. With associated UTI. Patient is agreeable to admission - Vital Signs Vital signs: Temp Pulse Resp BP Pulse Ox 99.4 F 115 H 22 H 126/68 H 92 07/25/17 16:01 07/25/17 14:00 07/25/17 19:03 07/25/17 18:01 07/25/17 19:03 - Laboratory Result Diagrams: 07/25/17 15:15 07/25/17 15:15 Laboratory results interpreted by me: 07/25/17 07/25/17 07/25/17 15:15 15:15 15:15 RDW 15.3 H Seg Neuts % (Manual) 87 H Lymphocytes % (Manual) 4 L Abs Lymphs (Manual) 0.3 L VBG pH 7.46 H Total Protein 6.1 L Urine Nitrite Ur Leukocyte Esterase Urine Ascorbic Acid 07/25/17 15:38 RDW Seg Neuts % (Manual) Lymphocytes % (Manual) Abs Lymphs (Manual) VBG pH Total Protein Urine Nitrite POSITIVE H Ur Leukocyte Esterase LARGE H Urine Ascorbic Acid 40 H - Diagnostic Test Radiology reviewed: Image reviewed, Reports reviewed - EKG Interpretation by Me EKG shows normal: Sinus rhythm Rate: Normal Rhythm: NSR When compared to previous EKG there are: No significant change Discharge - Discharge Clinical Impression: Acute respiratory failure Qualifiers: Respiratory failure complication: hypoxia Qualified Code(s): J96.01 - Acute respiratory failure with hypoxia UTI (urinary tract infection) Qualifiers: Urinary tract infection type: acute cystitis Hematuria presence: without hematuria Qualified Code(s): N30.00 - Acute cystitis without hematuria Condition: Stable Disposition: ADMITTED INPATIENT Admitting Provider: Hospitalist Unit Admitted: Telemetry Referrals: MOLLY DIEGO MD [Primary Care Provider] - Follow up as needed
[2017-07-25 15:47] LABS: INTERNATIONAL RATION (INR) 0.99; PROTHROMBIN TIME 13.7 SEC (11.4-15.4)
[2017-07-25 16:00] LABS: ABSOLUTE LYMPHOCYTES# (MANUAL) 0.3 10^3/uL (0.5-4.7); ABSOLUTE MONOCYTES # (MANUAL) 0.6 10^3/uL (0.1-1.4); ABSOLUTE NEUTROPHILS# (MANUAL) 5.5 10^3/uL (1.7-8.2); BASOPHILS % (MANUAL) 0 % (0-2); EOSINOPHILS % (MANUAL) 0 % (0-6); LYMPHOCYTES % (MANUAL) 4 % (13-45); MONOCYTES % (MANUAL) 9 % (3-13); SEGMENTED NEUTROPHILS % (MAN) 87 % (42-78); TOTAL CELLS COUNTED 100
[2017-07-25 16:01] LABS: ANISOCYTOSIS SLIGHT; PLATELET COMMENT ADEQUATE; TOXIC GRANULATION SLIGHT
[2017-07-25 16:02] LABS: ALANINE AMINOTRANSFERASE 24 U/L (9-52); ALBUMIN 3.6 g/dL (3.5-5.0); ALKALINE PHOSPHATASE 103 U/L (38-126); ANION GAP 9 (5-19); ASPARTATE AMINO TRANSFERASE 28 U/L (14-36); BILIRUBIN,DIRECT 0.2 mg/dL (0.0-0.4); BILIRUBIN,TOTAL 0.3 mg/dL (0.2-1.3); BLOOD UREA NITROGEN 11 mg/dL (7-20); CALCIUM 8.9 mg/dL (8.4-10.2); CARBON DIOXIDE 27 mmol/L (22-30); CHLORIDE 105 mmol/L (98-107); GLUCOSE 105 mg/dL (75-110); POTASSIUM 4.1 mmol/L (3.6-5.0); SODIUM 141.4 mmol/L (137-145); TOTAL PROTEIN 6.1 g/dL (6.3-8.2)
[2017-07-25 16:10] LABS: APPEARANCE,URINE SLIGHTLY-CLOUDY; BILIRUBIN,URINE NEGATIVE (NEGATIVE); COLOR,URINE YELLOW; GLUCOSE, URINE NEGATIVE (NEGATIVE); KETONES,URINE NEGATIVE (NEGATIVE); LEUKOCYTE ESTERASE,URINE LARGE (NEGATIVE); NITRITE,URINE POSITIVE (NEGATIVE); PROTEIN,URINE NEGATIVE (NEGATIVE); URINE SPECIFIC GRAVITY 1.019; UROBILINOGEN,URINE NEGATIVE mg/dL (<2.0)
[2017-07-25] MEDS ORDERED: METHYLPREDNISOLONE INJ 125 MG/2 ML SDV IV ONE (16:13)
[2017-07-25] MEDS ORDERED: IPRATROPIUM/ALBUTEROL 0.5-2.5 MG/3 ML AMPUL NEB ONE (16:13)
[2017-07-25] MEDS ORDERED: ACETAMINOPHEN 325 MG TABLET PO ONE ×2 (16:19→23:12)
[2017-07-25] MEDS: ALBUTEROL SULFATE 0.083% NEB 2.5 MG/3 ML AMPUL NEB SCH ×2 (16:34→17:07)
[2017-07-25] MEDS ORDERED: ALBUTEROL SULFATE 0.083% NEB 2.5 MG/3 ML AMPUL NEB ONE (19:45)
[2017-07-25] MEDS ORDERED: FAMOTIDINE 20 MG TABLET PO ONE (19:45)
[2017-07-25] MEDS ORDERED: BENZONATATE 100 MG CAPSULE PO PRN (20:49)
[2017-07-25] MEDS ORDERED: RINGERS SOLUTION 1,000 ML IV PRN (20:53)
[2017-07-25] MEDS: GUAIFENESIN 600 MG TABLET.SA PO SCH (21:37)
[2017-07-25] MEDS: MONTELUKAST SODIUM 10 MG TABLET PO SCH (21:38)
[2017-07-25] MEDS: ONDANSETRON HCL INJ/PF 4 MG/2 ML SDV IV PRN (21:40)
[2017-07-25 21:59] LABS: A TYPE INFLUENZA AG NEGATIVE (NEGATIVE); B INFLUENZA AG NEGATIVE (NEGATIVE)
[2017-07-25] MEDS ORDERED: MAGNESIUM SULFATE/D5W 1 GM/100 ML RTUPB IV ONE (22:00)
--- NOTE | 2017-07-25 22:46 | EKG REPORT ---
SEVERITY:- ABNORMAL ECG - SINUS TACHYCARDIA LEFT ANTERIOR FASCICULAR BLOCK : Confirmed by: Trina Crowe 25-Jul-2017 22:45:48
[2017-07-25] MEDS ORDERED: OSELTAMIVIR PHOSPHATE 75 MG CAPSULE PO ONE (23:57)
[2017-07-25] MEDS ORDERED: MAG HYDROX/AL HYDROX/SIMETH SUSP 30 ML UDCUP PO PRN (23:58)
[2017-07-26] MEDS ORDERED: ZOLPIDEM TARTRATE 5 MG TABLET PO ONE (00:30)
[2017-07-26] MEDS: LEVALBUTEROL HCL NEB 1.25 MG/3 ML AMPUL NEB SCH ×6 (00:31→21:49)
--- NOTE | 2017-07-26 03:17 | PDOC H&P ---
History of Present Illness Admission Date/PCP: 07/25/17 19:54 MOLLY RINCON MD Patient complains of: Not feeling well History of Present Illness: PAULINE BOSCH is a 67 year old female with a history of obesity, fibromyalgia, opiate dependence with chronic pain, hypothyroidism, depression and anxiety. Patient presenting with a 2 day history of not feeling well. She has been having productive cough, wheezing, shortness of breath and headache. She has increased shortness of breath with activity. Patient also had a fever with a T-max of 100.1. Patient states she is having a lot of muscle aches. She reports taking care of her grandson who was diagnosed with flu. Her son-in- law was also diagnosed with the flu. Patient states she has had her flu shot. Patient reports not eating or drinking well. ED patient was found to have temperature 103., Tachycardia of 116 and mild tachypnea. Patient was also hypoxic into the 80s. Hospitalist was called to admit patient for acute hypoxic respiratory failure and viral syndrome. Past Medical History Cardiac Medical History: Reports: Congestive Heart Failure, Hyperlipidema Endocrine Medical History: Reports: Hypothyroidism GI Medical History: Reports: Gastroesophageal Reflux Disease Psychiatric Medical History: Reports: Depression Hematology: Reports: Anemia Past Surgical History Past Surgical History: Reports: Section, Cholecystectomy Social History Smoking Status: Never Smoker - Advance Directive Resuscitation Status: Full Code Family History Family History: Arthritis Parental Family History Reviewed: No Children Family History Reviewed: No Sibling(s) Family History Reviewed.: No Medication/Allergy Home Medications: Albuterol Sulfate [Proair HFA Inhalation Aerosol 8.5 gm MDI] 2 puff IN Q6HP PRN 07/25/17 Aripiprazole [Abilify 15 mg Tablet] 15 mg PO QHS 07/25/17 Calcium Carbonate [Calcium] 1,200 mg PO BID 07/25/17 Cholecalciferol (Vitamin D3) [Vitamin D3 2000 unit Tablet] 2,000 unit PO DAILY 07/25/17 Cyanocobalamin (Vitamin B-12) [Vitamin B-12] 2,500 mcg PO Q2D 07/25/17 Furosemide [Lasix 40 mg Tablet] 40 mg PO BID 07/25/17 Gluc Gamble/Chondro Gamble A/Vit C/Mn [Glucosamine 1,500 Complex Cap] 1,500 mg PO BID Lansoprazole [Prevacid 30 mg Odt Tablet] 30 mg PO Q6AM 07/25/17 Levothyroxine Sodium [Synthroid 0.075 mg Tablet] 0.075 mg PO Q6AM 07/25/17 Multivitamin [Tab-A-[place]et[place] (Multiple Vitamin) Tablet] 1 tab PO DAILY 07/25/17 [place]-3/Dha/Epa/Fish Oil [[place]-3 Fish Oil Softgel] 1 cap PO TID 07/25/17 Oxycodone HCl/Acetaminophen [Oxycodone-Acetaminophen 5-325] 1 tab PO Q8HP PRN Potassium Gluconate [Potassium] 600 mg PO DAILY 07/25/17 Pregabalin [Lyrica 75 mg Capsule] 75 mg PO Q8 07/25/17 Propranolol HCl [Inderal 20 mg Tablet] 20 mg PO Q12 07/25/17 Rosuvastatin Calcium [Crestor 20 mg Tablet] 20 mg PO QHS 07/25/17 Tapentadol HCl [Nucynta ER] 150 mg PO Q12 07/25/17 Venlafaxine HCl ER [Effexor Xr 75 mg Cap.sr] 75 mg PO Q8 07/25/17 Vitamin E 400 unit PO DAILY 07/25/17 Zolpidem Tartrate [Ambien 5 mg Tablet] 5 mg PO QHS 07/25/17 Allergies/Adverse Reactions: No Known Allergies Allergy (Verified 07/25/17 13:53) Review of Systems Constitutional: PRESENT: fever(s), headache(s). ABSENT: chills, weight gain, weight loss Eyes: ABSENT: visual disturbances Ears: ABSENT: hearing changes Cardiovascular: ABSENT: chest pain, dyspnea on exertion, edema, orthropnea, palpitations Respiratory: PRESENT: cough, sputum. ABSENT: hemoptysis Gastrointestinal: ABSENT: abdominal pain, constipation, diarrhea, hematemesis, hematochezia, nausea, vomiting Genitourinary: ABSENT: dysuria, hematuria Musculoskeletal: ABSENT: joint swelling Integumentary: ABSENT: rash, wounds Neurological: ABSENT: abnormal gait, abnormal speech, confusion, dizziness, focal weakness, syncope Psychiatric: ABSENT: anxiety, depression, homidical ideation, suicidal ideation Endocrine: ABSENT: cold intolerance, heat intolerance, polydipsia, polyuria Hematologic/Lymphatic: ABSENT: easy bleeding, easy bruising Physical Exam Vital Signs: Temp Pulse Resp BP Pulse Ox 99.4 F 115 H 22 H 126/68 H 92 07/25/17 16:01 07/25/17 14:00 07/25/17 19:03 07/25/17 18:01 07/25/17 19:03 General appearance: PRESENT: morbidly obese Head exam: PRESENT: normocephalic Eye exam: PRESENT: EOMI. ABSENT: scleral icterus Ear exam: PRESENT: normal external ear exam Mouth exam: PRESENT: moist Neck exam: ABSENT: carotid bruit, JVD, lymphadenopathy, thyromegaly Respiratory exam: PRESENT: clear to auscultation neda, decreased breath sounds. ABSENT: rales, rhonchi, wheezes Cardiovascular exam: PRESENT: RRR. ABSENT: diastolic murmur, rubs, systolic murmur Pulses: PRESENT: normal dorsalis pedis pul Vascular exam: PRESENT: normal capillary refill GI/Abdominal exam: PRESENT: normal bowel sounds, soft. ABSENT: distended, guarding, mass, organolmegaly, rebound, tenderness Rectal exam: PRESENT: deferred Extremities exam: PRESENT: full ROM. ABSENT: calf tenderness, clubbing, pedal edema Neurological exam: PRESENT: alert, awake, oriented to person, oriented to place , oriented to time, oriented to situation, CN II-XII grossly intact. ABSENT: motor sensory deficit Psychiatric exam: PRESENT: anxious, flat affect. ABSENT: homicidal ideation, suicidal ideation Skin exam: PRESENT: dry, intact, warm. ABSENT: cyanosis, rash Results Laboratory Results: 07/25/17 07/25/17 07/25/17 15:15 15:15 15:15 WBC 6.3 RBC 4.46 Hgb 12.6 Hct 38.1 MCV 85 MCH 28.1 MCHC 33.0 RDW 15.3 H Plt Count 192 Total Counted 100 Seg Neuts % (Manual) 87 H Lymphocytes % (Manual) 4 L Monocytes % (Manual) 9 Eosinophils % (Manual) 0 Basophils % (Manual) 0 Abs Neuts (Manual) 5.5 Abs Lymphs (Manual) 0.3 L Abs Monocytes (Manual) 0.6 Absolute Eos (Manual) 0.0 Abs Basophils (Manual) 0.0 PT 13.7 INR 0.99 VBG pH VBG pCO2 VBG HCO3 VBG Base Excess Sodium 141.4 Potassium 4.1 Chloride 105 Carbon Dioxide 27 Anion Gap 9 BUN 11 Creatinine 0.72 Est GFR ( Amer) > 60 Est GFR (Non-Af Amer) > 60 Glucose 105 POC Glucose Lactic Acid Calcium 8.9 Total Bilirubin 0.3 Direct Bilirubin 0.2 AST 28 ALT 24 Alkaline Phosphatase 103 NT-Pro-B Natriuret Pep Total Protein 6.1 L Albumin 3.6 Urine Color Urine Appearance Urine pH Ur Specific [place] Urine Protein Urine Glucose (UA) Urine Ketones Urine Blood Urine Nitrite Urine Bilirubin Urine Urobilinogen Ur Leukocyte Esterase Urine WBC (Auto) Urine RBC (Auto) U Hyaline Cast (Auto) Urine Bacteria (Auto) Squamous Epi Cells Auto Urine Mucus (Auto) Urine Ascorbic Acid Influenza A (Rapid) Influenza B (Rapid) 07/25/17 07/25/17 07/25/17 15:15 15:15 15:38 WBC RBC Hgb Hct MCV MCH MCHC RDW Plt Count Total Counted Seg Neuts % (Manual) Lymphocytes % (Manual) Monocytes % (Manual) Eosinophils % (Manual) Basophils % (Manual) Abs Neuts (Manual) Abs Lymphs (Manual) Abs Monocytes (Manual) Absolute Eos (Manual) Abs Basophils (Manual) PT INR VBG pH 7.46 H VBG pCO2 38.1 VBG HCO3 26.7 VBG Base Excess 3.0 Sodium Potassium Chloride Carbon Dioxide Anion Gap BUN Creatinine Est GFR ( Amer) Est GFR (Non-Af Amer) Glucose POC Glucose Lactic Acid 1.2 Calcium Total Bilirubin Direct Bilirubin AST ALT Alkaline Phosphatase NT-Pro-B Natriuret Pep Total Protein Albumin Urine Color YELLOW Urine Appearance SLIGHTLY-CLOUDY Urine pH 5.0 Ur Specific [place] 1.019 Urine Protein NEGATIVE Urine Glucose (UA) NEGATIVE Urine Ketones NEGATIVE Urine Blood NEGATIVE Urine Nitrite POSITIVE H Urine Bilirubin NEGATIVE Urine Urobilinogen NEGATIVE Ur Leukocyte Esterase LARGE H Urine WBC (Auto) 88 Urine RBC (Auto) 7 U Hyaline Cast (Auto) 1 Urine Bacteria (Auto) 3+ Squamous Epi Cells Auto 2 Urine Mucus (Auto) FEW Urine Ascorbic Acid 40 H Influenza A (Rapid) Influenza B (Rapid) 07/25/17 07/25/17 07/25/17 15:39 17:14 21:10 WBC RBC Hgb Hct MCV MCH MCHC RDW Plt Count Total Counted Seg Neuts % (Manual) Lymphocytes % (Manual) Monocytes % (Manual) Eosinophils % (Manual) Basophils % (Manual) Abs Neuts (Manual) Abs Lymphs (Manual) Abs Monocytes (Manual) Absolute Eos (Manual) Abs Basophils (Manual) PT INR VBG pH VBG pCO2 VBG HCO3 VBG Base Excess Sodium Potassium Chloride Carbon Dioxide Anion Gap BUN Creatinine Est GFR ( Amer) Est GFR (Non-Af Amer) Glucose POC Glucose 105 Lactic Acid Calcium Total Bilirubin Direct Bilirubin AST ALT Alkaline Phosphatase NT-Pro-B Natriuret Pep 344 Total Protein Albumin Urine Color Urine Appearance Urine pH Ur Specific [place] Urine Protein Urine Glucose (UA) Urine Ketones Urine Blood Urine Nitrite Urine Bilirubin Urine Urobilinogen Ur Leukocyte Esterase Urine WBC (Auto) Urine RBC (Auto) U Hyaline Cast (Auto) Urine Bacteria (Auto) Squamous Epi Cells Auto Urine Mucus (Auto) Urine Ascorbic Acid Influenza A (Rapid) NEGATIVE Influenza B (Rapid) NEGATIVE Impressions: Chest X-Ray 07/25/17 14:06 IMPRESSION: No acute consolidations or pleural effusions. There is some prominence of the bronchovascular markings and the possibility of peribronchial inflammatory changes cannot be excluded. Other findings as noted above Assessment & Plan - Diagnosis (1) Acute respiratory failure with hypoxemia Is this a current diagnosis for this admission?: Yes Plan: Patient with acute hypoxic respiratory failure most likely due to acute bronchitis resulting from a viral respiratory illness. Patient currently on supplemental oxygen. Patient appears comfortable sitting in a 90s. (2) Sepsis Qualifiers: Sepsis type: sepsis due to unspecified organism Qualified Code(s): A41.9 - Sepsis, unspecified organism Is this a current diagnosis for this admission?: Yes Plan: Patient presented with tachycardia, fever and what appears to be a UTI. Patient currently on ceftriaxone. Blood and urine cultures pending. Patient received gentle hydration and antipyretics. (3) Acute bronchitis Is this a current diagnosis for this admission?: Yes Plan: She with acute bronchitis. No finding on chest x-ray however there is some cuffing. Patient started on steroids, nebs, azithromycin and ceftriaxone, Mucinex and Singulair. (4) Viral illness Is this a current diagnosis for this admission?: Yes Plan: Concern that patient may have some viral illness in addition to her UTI. Patient was screened for influenza however was negative. Patient has been watching her 5-year-old grandson who is influenza positive. Because of patient' s symptoms of fever 103.5 in the ED, headache, muscle aches, cough patient will be started on Tamiflu along with antibiotics. (5) UTI (urinary tract infection) Qualifiers: Urinary tract infection type: acute cystitis Hematuria presence: without hematuria Qualified Code(s): N30.00 - Acute cystitis without hematuria Is this a current diagnosis for this admission?: Yes Plan: Patient with positive nitrite and leukocyte esterase in urine.. Patient currently on ceftriaxone. Urine culture pending. - Time Time Spent: 30 to 50 Minutes Anticipated discharge: Home Within: within 72 hours - Inpatient Certification Medical Necessity: Need For Continuous Telemetry Monitoring, Need for Nebulizer Therapy and Monitoring of Response, Need for IV Antibiotics
[2017-07-26] MEDS ORDERED: ALPRAZOLAM 0.25 MG TABLET PO ONE (05:12)
[2017-07-26] MEDS: ACETAMINOPHEN 325 MG TABLET PO PRN ×2 (05:36→15:30)
[2017-07-26] MEDS: ONDANSETRON HCL INJ/PF 4 MG/2 ML SDV IV PRN (06:11)
[2017-07-26 06:58] LABS: HEMATOCRIT 36.6 % (36.0-47.0); HEMOGLOBIN 11.9 g/dL (12.0-15.5); MEAN CORPUSCULAR HEMOGLOBIN 27.7 pg (27.0-33.4); MEAN CORPUSCULAR HGB CONC 32.6 g/dL (32.0-36.0); MEAN CORPUSCULAR VOLUME 85 fl (80-97); PLATELET COUNT 170 10^3/uL (150-450); RED BLOOD COUNT 4.29 10^6/uL (3.72-5.28); RED CELL DISTRIBUTION WIDTH 15.4 % (11.5-14.0); WHITE BLOOD COUNT 5.3 10^3/uL (4.0-10.5)
[2017-07-26] MEDS: VENLAFAXINE HCL 75 MG CAP.SR.24H PO SCH ×3 (06:58→22:51)
[2017-07-26] MEDS: PREGABALIN 75 MG CAPSULE PO SCH ×3 (06:58→22:51)
[2017-07-26] MEDS: LANSOPRAZOLE 30 MG TAB.RAP.DR PO SCH (06:58)
[2017-07-26] MEDS: LEVOTHYROXINE SODIUM 0.075 MG TABLET PO SCH (06:59)
[2017-07-26 07:14] LABS: ANION GAP 8 (5-19); BLOOD UREA NITROGEN 14 mg/dL (7-20); CARBON DIOXIDE 26 mmol/L (22-30); CHLORIDE 108 mmol/L (98-107); GLUCOSE 145 mg/dL (75-110); MAGNESIUM 2.2 mg/dL (1.6-2.3); POTASSIUM 3.9 mmol/L (3.6-5.0); SODIUM 142.2 mmol/L (137-145)
[2017-07-26] MEDS: CALCIUM CARBONATE 500 MG TAB.CHEW PO SCH ×4 (07:41→22:51)
[2017-07-26] MEDS: BUDESONIDE NEB 0.5 MG/2 ML AMPUL NEB SCH ×2 (07:51→21:48)
[2017-07-26 08:23] LABS: ABSOLUTE LYMPHOCYTES# (MANUAL) 0.1 10^3/uL (0.5-4.7); ABSOLUTE MONOCYTES # (MANUAL) 0.1 10^3/uL (0.1-1.4); ABSOLUTE NEUTROPHILS# (MANUAL) 5.1 10^3/uL (1.7-8.2); BAND NEUTROPHILS % (MANUAL) 4 % (3-5); BASOPHILS % (MANUAL) 0 % (0-2); EOSINOPHILS % (MANUAL) 0 % (0-6); LYMPHOCYTES % (MANUAL) 2 % (13-45); MONOCYTES % (MANUAL) 1 % (3-13); SEGMENTED NEUTROPHILS % (MAN) 93 % (42-78); TOTAL CELLS COUNTED 100
[2017-07-26 08:24] LABS: ANISOCYTOSIS SLIGHT; OVALOCYTES 2+; PLATELET COMMENT ADEQUATE; POIKILOCYTOSIS 2+
[2017-07-26] MEDS: PREDNISONE 20 MG TABLET PO SCH (09:56)
[2017-07-26] MEDS: GUAIFENESIN 600 MG TABLET.SA PO SCH ×2 (09:57→22:51)
[2017-07-26] MEDS: OSELTAMIVIR PHOSPHATE 75 MG CAPSULE PO SCH ×2 (09:58→17:53)
[2017-07-26] MEDS: FUROSEMIDE 40 MG TABLET PO SCH ×2 (09:58→17:54)
[2017-07-26] MEDS: AZITHROMYCIN 250 MG TABLET PO SCH (09:59)
[2017-07-26] MEDS ORDERED: (PENDING PHARMACY ID) (Tapentadol Hcl [Nucynta Er] 150 MG) PO SCH (10:00)
[2017-07-26] MEDS ORDERED: CEFTRIAXONE 1 GM/D5W RTU 1 GM/50 ML RTUPB IV SCH (10:00)
[2017-07-26] MEDS: OXYCODONE-ACETAMINOPHEN 5-325 MG TABLET PO PRN ×2 (11:17→19:37)
[2017-07-26] MEDS ORDERED: CEFTRIAXONE SODIUM 1,000 MG in NORMAL SALINE 50 ML IV SCH (18:00)
--- NOTE | 2017-07-26 21:24 | PDOC PROGRESS REPORT ---
Subjective Progress Note for:: 07/26/17 Subjective:: She states that her breathing is better and that she is feeling better. Patient 's son is setting at bedside. Reason For Visit: ACUTE HYPOXIC RESPIRATORY FAILURE,ACUTE BRONCHITIS Physical Exam Vital Signs: Temp Pulse Resp BP Pulse Ox 97.7 F 73 20 107/67 95 07/26/17 20:52 07/26/17 20:52 07/26/17 20:52 07/26/17 20:52 07/26/17 20:52 General appearance: PRESENT: no acute distress, well-developed, well-nourished Head exam: PRESENT: atraumatic, normocephalic Eye exam: PRESENT: conjunctiva pink, EOMI Ear exam: PRESENT: normal external ear exam Mouth exam: PRESENT: moist, tongue midline Neck exam: ABSENT: carotid bruit, JVD, lymphadenopathy, thyromegaly Respiratory exam: PRESENT: other - Coarse breath sounds heard in all lung fitzgerald and diminished at bases Cardiovascular exam: PRESENT: RRR. ABSENT: diastolic murmur, rubs, systolic murmur Pulses: PRESENT: normal dorsalis pedis pul Vascular exam: PRESENT: normal capillary refill GI/Abdominal exam: PRESENT: normal bowel sounds, soft. ABSENT: distended, guarding, mass, organolmegaly, rebound, tenderness Rectal exam: PRESENT: deferred Extremities exam: PRESENT: full ROM. ABSENT: calf tenderness, clubbing, pedal edema Neurological exam: PRESENT: alert, awake, oriented to person, oriented to place , oriented to time, oriented to situation, CN II-XII grossly intact. ABSENT: motor sensory deficit Psychiatric exam: PRESENT: appropriate affect, normal mood. ABSENT: homicidal ideation, suicidal ideation Skin exam: PRESENT: dry, intact, warm. ABSENT: cyanosis, rash Results Laboratory Results: 07/26/17 06:35 07/26/17 06:35 07/26/17 07/26/17 06:35 06:35 WBC 5.3 RBC 4.29 Hgb 11.9 L Hct 36.6 MCV 85 MCH 27.7 MCHC 32.6 RDW 15.4 H Plt Count 170 Seg Neutrophils % Not Reportable Lymphocytes % Not Reportable Monocytes % Not Reportable Eosinophils % Not Reportable Basophils % Not Reportable Absolute Neutrophils Not Reportable Absolute Lymphocytes Not Reportable Absolute Monocytes Not Reportable Absolute Eosinophils Not Reportable Absolute Basophils Not Reportable Sodium 142.2 Potassium 3.9 Chloride 108 H Carbon Dioxide 26 Anion Gap 8 BUN 14 Creatinine 0.56 Est GFR ( Amer) > 60 Est GFR (Non-Af Amer) > 60 Glucose 145 H Calcium 9.0 Magnesium 2.2 Impressions: Chest X-Ray 07/25/17 14:06 IMPRESSION: No acute consolidations or pleural effusions. There is some prominence of the bronchovascular markings and the possibility of peribronchial inflammatory changes cannot be excluded. Other findings as noted above Assessment & Plan - Diagnosis (1) Acute cystitis Is this a current diagnosis for this admission?: Yes Plan: Secondary to gram-negative rods: Rocephin (2) Acute bronchitis Is this a current diagnosis for this admission?: Yes Plan: Duoneb breathing treatments Zithromax and Rocephin . (3) Acute respiratory failure with hypoxemia Is this a current diagnosis for this admission?: Yes Plan: Most likely viral but will empirically cover for bacterial. Will de-escalate antibiotics tomorrow if no signs of infection. Will check chest x-ray. (4) UTI (urinary tract infection) Qualifiers: Urinary tract infection type: acute cystitis Hematuria presence: without hematuria Qualified Code(s): N30.00 - Acute cystitis without hematuria Is this a current diagnosis for this admission?: Yes Plan: Secondary gram-negative rods: We will continue Rocephin (5) Viral illness Is this a current diagnosis for this admission?: Yes (6) Sepsis Qualifiers: Sepsis type: sepsis due to unspecified organism Qualified Code(s): A41.9 - Sepsis, unspecified organism Is this a current diagnosis for this admission?: Yes Plan: Secondary to acute cystitis and viral illness: We will continue current treatment - Time Time Spent with patient: 15-24 minutes
[2017-07-26] MEDS ORDERED: (PENDING PHARMACY ID) (Rosuvastatin Calcium [Crestor 20 Mg Tablet] 20 MG) PO SCH (22:00)
[2017-07-26] MEDS: ATORVASTATIN CALCIUM 40 MG TABLET PO SCH (22:51)
[2017-07-26] MEDS: MONTELUKAST SODIUM 10 MG TABLET PO SCH (22:51)
[2017-07-26] MEDS: ZOLPIDEM TARTRATE 5 MG TABLET PO SCH (22:52)
[2017-07-26] MEDS: ARIPIPRAZOLE 5 MG TABLET PO SCH (22:52)
[2017-07-27] MEDS: LEVALBUTEROL HCL NEB 1.25 MG/3 ML AMPUL NEB SCH ×6 (03:41→20:42)
[2017-07-27] MEDS: PREGABALIN 75 MG CAPSULE PO SCH ×3 (05:26→22:54)
[2017-07-27] MEDS: OXYCODONE-ACETAMINOPHEN 5-325 MG TABLET PO PRN ×3 (05:26→22:55)
[2017-07-27] MEDS: LANSOPRAZOLE 30 MG TAB.RAP.DR PO SCH (05:26)
[2017-07-27] MEDS: LEVOTHYROXINE SODIUM 0.075 MG TABLET PO SCH (05:27)
[2017-07-27] MEDS: VENLAFAXINE HCL 75 MG CAP.SR.24H PO SCH ×3 (05:27→22:54)
[2017-07-27 07:03] LABS: ABSOLUTE LYMPHOCYTES (AUTO) 0.4 10^3/uL (0.5-4.7); ABSOLUTE MONOCYTES (AUTO) 0.3 10^3/uL (0.1-1.4); ABSOLUTE NEUT (AUTO) 5.3 10^3/uL (1.7-8.2); BASOPHILS % (AUTO) 0.1 % (0-2); HEMATOCRIT 36.8 % (36.0-47.0); HEMOGLOBIN 12.1 g/dL (12.0-15.5); LYMPHOCYTES % (AUTO) 7.4 % (13-45); MEAN CORPUSCULAR HEMOGLOBIN 28.1 pg (27.0-33.4); MEAN CORPUSCULAR HGB CONC 32.9 g/dL (32.0-36.0); MEAN CORPUSCULAR VOLUME 85 fl (80-97); MONOCYTES % (AUTO) 4.5 % (3-13); PLATELET COUNT 166 10^3/uL (150-450); RED BLOOD COUNT 4.31 10^6/uL (3.72-5.28); RED CELL DISTRIBUTION WIDTH 15.4 % (11.5-14.0); TOTAL CELLS COUNTED % (AUTO) 100 %
[2017-07-27 07:21] LABS: ANION GAP 8 (5-19); BLOOD UREA NITROGEN 11 mg/dL (7-20); CARBON DIOXIDE 29 mmol/L (22-30); CHLORIDE 104 mmol/L (98-107); GLUCOSE 94 mg/dL (75-110); POTASSIUM 3.7 mmol/L (3.6-5.0); SODIUM 141.2 mmol/L (137-145)
[2017-07-27] MEDS: BUDESONIDE NEB 0.5 MG/2 ML AMPUL NEB SCH ×2 (08:02→20:42)
--- NOTE | 2017-07-27 09:17 | RADIOLOGY REPORT (SQ) ---
EXAM DESCRIPTION: CHEST SINGLE VIEW COMPLETED DATE/TIME: 07/27/2017 7:57 am REASON FOR STUDY: shortness of breath COMPARISON: 07/25/2017. EXAM PARAMETERS: NUMBER OF VIEWS: One view. TECHNIQUE: Single frontal radiographic view of the chest acquired. RADIATION DOSE: NA LIMITATIONS: None. FINDINGS: LUNGS AND PLEURA: No opacities, masses or pneumothorax. No pleural effusion. MEDIASTINUM AND HILAR STRUCTURES: No masses. Contour normal. HEART AND VASCULAR STRUCTURES: Heart normal in size. Normal vasculature. BONES: No acute findings. HARDWARE: None in the chest. OTHER: No other significant finding. IMPRESSION: NO ACUTE RADIOGRAPHIC FINDING IN THE CHEST. TECHNICAL DOCUMENTATION: JOB ID: [id number] [employer]- All Rights Reserved
[2017-07-27] MEDS: CALCIUM CARBONATE 500 MG TAB.CHEW PO SCH ×4 (09:22→22:55)
[2017-07-27] MEDS: AZITHROMYCIN 250 MG TABLET PO SCH (09:23)
[2017-07-27] MEDS: PREDNISONE 20 MG TABLET PO SCH (09:24)
[2017-07-27] MEDS: GUAIFENESIN 600 MG TABLET.SA PO SCH ×2 (09:24→22:54)
[2017-07-27] MEDS: FUROSEMIDE 40 MG TABLET PO SCH ×2 (09:24→17:57)
[2017-07-27] MEDS: ACETAMINOPHEN 325 MG TABLET PO PRN (09:26)
[2017-07-27] MEDS: OSELTAMIVIR PHOSPHATE 75 MG CAPSULE PO SCH ×2 (12:14→17:58)
--- NOTE | 2017-07-27 17:52 | PDOC PROGRESS REPORT ---
Subjective Progress Note for:: 07/27/17 Subjective:: Pt states that she is feeling better. Pt states that her urine has had a strong odor. Pt states that she is not coughing as much. Reason For Visit: ACUTE HYPOXIC RESPIRATORY FAILURE,ACUTE BRONCHITIS Physical Exam Vital Signs: Temp Pulse Resp BP Pulse Ox 98.2 F 88 20 105/66 95 07/27/17 15:35 07/27/17 16:16 07/27/17 16:16 07/27/17 15:35 07/27/17 16:16 Intake & Output 07/26/17 07/27/17 07/28/17 06:59 06:59 06:59 Intake Total 180 Output Total 200 Balance -20 Weight 112.2 kg General appearance: PRESENT: no acute distress, well-developed, well-nourished Head exam: PRESENT: atraumatic, normocephalic Eye exam: PRESENT: conjunctiva pink, EOMI. ABSENT: scleral icterus Ear exam: PRESENT: normal external ear exam Mouth exam: PRESENT: moist, tongue midline Neck exam: ABSENT: carotid bruit, JVD, lymphadenopathy, thyromegaly Respiratory exam: PRESENT: accessory muscle use, decreased breath sounds, wheezes. ABSENT: rales, rhonchi Cardiovascular exam: PRESENT: RRR. ABSENT: diastolic murmur, rubs, systolic murmur Pulses: PRESENT: normal dorsalis pedis pul Vascular exam: PRESENT: normal capillary refill GI/Abdominal exam: PRESENT: normal bowel sounds, soft. ABSENT: distended, guarding, mass, organolmegaly, rebound, tenderness Rectal exam: PRESENT: deferred Extremities exam: PRESENT: full ROM. ABSENT: calf tenderness, clubbing, pedal edema Musculoskeletal exam: PRESENT: full ROM Neurological exam: PRESENT: alert, awake, oriented to person, oriented to place , oriented to time, oriented to situation, CN II-XII grossly intact. ABSENT: motor sensory deficit Psychiatric exam: PRESENT: appropriate affect, normal mood. ABSENT: homicidal ideation, suicidal ideation Skin exam: PRESENT: dry, intact, warm. ABSENT: cyanosis, rash Results Laboratory Results: 07/27/17 06:29 07/27/17 06:29 07/27/17 07/27/17 06:29 06:29 WBC 6.0 RBC 4.31 Hgb 12.1 Hct 36.8 MCV 85 MCH 28.1 MCHC 32.9 RDW 15.4 H Plt Count 166 Seg Neutrophils % 88.0 H Lymphocytes % 7.4 L Monocytes % 4.5 Eosinophils % 0.0 Basophils % 0.1 Absolute Neutrophils 5.3 Absolute Lymphocytes 0.4 L Absolute Monocytes 0.3 Absolute Eosinophils 0.0 Absolute Basophils 0.0 Sodium 141.2 Potassium 3.7 Chloride 104 Carbon Dioxide 29 Anion Gap 8 BUN 11 Creatinine 0.63 Est GFR ( Amer) > 60 Est GFR (Non-Af Amer) > 60 Glucose 94 Calcium 9.0 Magnesium 2.0 Impressions: Chest X-Ray 07/27/17 06:00 IMPRESSION: NO ACUTE RADIOGRAPHIC FINDING IN THE CHEST. Assessment & Plan - Diagnosis (1) Acute cystitis Is this a current diagnosis for this admission?: Yes Plan: Secondary to gram-negative rods: Rocephin (2) Acute bronchitis Is this a current diagnosis for this admission?: Yes Plan: Viral: We will discontinue antibiotics. (3) Acute respiratory failure with hypoxemia Is this a current diagnosis for this admission?: Yes Plan: Secondary to bronchitis: Antibiotics discontinued. Will continue Tamiflu. (4) UTI (urinary tract infection) Qualifiers: Urinary tract infection type: acute cystitis Hematuria presence: without hematuria Qualified Code(s): N30.00 - Acute cystitis without hematuria Is this a current diagnosis for this admission?: Yes Plan: Secondary gram-negative rods: We will continue Rocephin (5) Viral illness Is this a current diagnosis for this admission?: Yes Plan: Will continue Tamiflu. (6) Sepsis Qualifiers: Sepsis type: sepsis due to unspecified organism Qualified Code(s): A41.9 - Sepsis, unspecified organism Is this a current diagnosis for this admission?: Yes Plan: Secondary to acute cystitis and viral illness: We will continue current treatment - Time Time Spent with patient: 15-24 minutes
[2017-07-27] MEDS: ZOLPIDEM TARTRATE 5 MG TABLET PO SCH (22:54)
[2017-07-27] MEDS: MONTELUKAST SODIUM 10 MG TABLET PO SCH (22:54)
[2017-07-27] MEDS: ATORVASTATIN CALCIUM 40 MG TABLET PO SCH (22:55)
[2017-07-27] MEDS: ARIPIPRAZOLE 5 MG TABLET PO SCH (22:55)
[2017-07-28] MEDS: LEVALBUTEROL HCL NEB 1.25 MG/3 ML AMPUL NEB SCH ×4 (00:21→11:59)
[2017-07-28] MEDS: PREGABALIN 75 MG CAPSULE PO SCH ×2 (06:31→13:47)
[2017-07-28] MEDS: LEVOTHYROXINE SODIUM 0.075 MG TABLET PO SCH (06:31)
[2017-07-28] MEDS: VENLAFAXINE HCL 75 MG CAP.SR.24H PO SCH ×2 (06:31→13:47)
[2017-07-28] MEDS: OXYCODONE-ACETAMINOPHEN 5-325 MG TABLET PO PRN (06:31)
[2017-07-28] MEDS: LANSOPRAZOLE 30 MG TAB.RAP.DR PO SCH (06:31)
[2017-07-28 07:23] LABS: ABSOLUTE LYMPHOCYTES (AUTO) 0.6 10^3/uL (0.5-4.7); ABSOLUTE MONOCYTES (AUTO) 0.3 10^3/uL (0.1-1.4); ABSOLUTE NEUT (AUTO) 2.3 10^3/uL (1.7-8.2); BASOPHILS % (AUTO) 0.1 % (0-2); EOSINOPHILS % (AUTO) 0.1 % (0-6); HEMATOCRIT 37.7 % (36.0-47.0); HEMOGLOBIN 12.3 g/dL (12.0-15.5); LYMPHOCYTES % (AUTO) 19.9 % (13-45); MEAN CORPUSCULAR HEMOGLOBIN 27.7 pg (27.0-33.4); MEAN CORPUSCULAR HGB CONC 32.6 g/dL (32.0-36.0); MEAN CORPUSCULAR VOLUME 85 fl (80-97); PLATELET COUNT 153 10^3/uL (150-450); RED BLOOD COUNT 4.43 10^6/uL (3.72-5.28); RED CELL DISTRIBUTION WIDTH 15.4 % (11.5-14.0); SEGMENTED NEUTROPHILS % (AUTO) 70.9 % (42-78); TOTAL CELLS COUNTED % (AUTO) 100 %; WHITE BLOOD COUNT 3.2 10^3/uL (4.0-10.5)
[2017-07-28 07:31] LABS: ANION GAP 10 (5-19); BLOOD UREA NITROGEN 10 mg/dL (7-20); CARBON DIOXIDE 28 mmol/L (22-30); CHLORIDE 102 mmol/L (98-107); GLUCOSE 93 mg/dL (75-110); MAGNESIUM 1.9 mg/dL (1.6-2.3); POTASSIUM 3.4 mmol/L (3.6-5.0); SODIUM 140.2 mmol/L (137-145)
[2017-07-28] MEDS: BUDESONIDE NEB 0.5 MG/2 ML AMPUL NEB SCH (08:22)
[2017-07-28] MEDS: CALCIUM CARBONATE 500 MG TAB.CHEW PO SCH ×2 (10:13→12:14)
[2017-07-28] MEDS: FUROSEMIDE 40 MG TABLET PO SCH (10:14)
[2017-07-28] MEDS: PREDNISONE 20 MG TABLET PO SCH (10:15)
[2017-07-28] MEDS: GUAIFENESIN 600 MG TABLET.SA PO SCH (10:15)
[2017-07-28 11:31] VITALS: BP 111/70
[2017-07-28] MEDS: OSELTAMIVIR PHOSPHATE 75 MG CAPSULE PO SCH (12:14)
[2017-07-28] MEDS ORDERED: POTASSIUM CHLORIDE 10 MEQ TABLET.SA PO ONE (13:31)
--- NOTE | 2017-07-28 14:11 | PDOC DISCHARGE SUMMARY ---
General - Admit/Disc Date/PCP Admission Date/Primary Care Provider: 07/25/17 19:54 MOLLY RINCON MD Discharge Date: 07/28/17 - Discharge Diagnosis (1) Acute cystitis Is this a current diagnosis for this admission?: Yes Summary: ESBL E. coli: We will place on Bactrim DS 1 tablet p.o. twice daily (2) Acute bronchitis Is this a current diagnosis for this admission?: Yes Summary: Secondary to viral illness: Supportive care (3) Acute respiratory failure with hypoxemia Is this a current diagnosis for this admission?: Yes Summary: Resolved. (4) UTI (urinary tract infection) Is this a current diagnosis for this admission?: Yes Summary: Secondary to ESBL E. coli: Patient placed on Bactrim (5) Viral illness Is this a current diagnosis for this admission?: Yes Summary: Secondary to presumed flu: Patient to complete Tamiflu (6) Sepsis Is this a current diagnosis for this admission?: Yes Summary: Secondary to acute cystitis ESBL E. coli and viral illness: Resolved - Additional Information Resuscitation Status: Full Code Discharge Diet: Cardiac Discharge Activity: Activity As Tolerated Prescriptions: Benzonatate [Tessalon Perles 100 mg Capsule] 100 mg PO Q8HP PRN #30 capsule PRN Reason: Oseltamivir Phosphate [Tamiflu 75 mg Capsule] 75 mg PO BID #6 capsule Sulfamethoxazole/Trimethoprim [Bactrim Ds Tablet] 1 each PO BID #10 tablet Home Medications: Albuterol Sulfate [Proair HFA Inhalation Aerosol 8.5 gm MDI] 2 puff IN Q6HP PRN 07/25/17 Aripiprazole [Abilify 15 mg Tablet] 15 mg PO QHS 07/25/17 Calcium Carbonate [Calcium] 1,200 mg PO BID 07/25/17 Cholecalciferol (Vitamin D3) [Vitamin D3 2000 unit Tablet] 2,000 unit PO DAILY 07/25/17 Cyanocobalamin (Vitamin B-12) [Vitamin B-12] 2,500 mcg PO Q2D 07/25/17 Furosemide [Lasix 40 mg Tablet] 40 mg PO BID 07/25/17 Gluc Gamble/Chondro Gamble A/Vit C/Mn [Glucosamine 1,500 Complex Cap] 1,500 mg PO BID Lansoprazole [Prevacid 30 mg Odt Tablet] 30 mg PO Q6AM 07/25/17 Levothyroxine Sodium [Synthroid 0.075 mg Tablet] 0.075 mg PO Q6AM 07/25/17 Multivitamin [Tab-A-Teetee (Multiple Vitamin) Tablet] 1 tab PO DAILY 07/25/17 [place]-3/Dha/Epa/Fish Oil [[place]-3 Fish Oil Softgel] 1 cap PO TID 07/25/17 Oxycodone HCl/Acetaminophen [Oxycodone-Acetaminophen 5-325] 1 tab PO Q8HP PRN Potassium Gluconate [Potassium] 600 mg PO DAILY 07/25/17 Pregabalin [Lyrica 75 mg Capsule] 75 mg PO Q8 07/25/17 Propranolol HCl [Inderal 20 mg Tablet] 20 mg PO Q12 07/25/17 Rosuvastatin Calcium [Crestor 20 mg Tablet] 20 mg PO QHS 07/25/17 Tapentadol HCl [Nucynta ER] 150 mg PO Q12 07/25/17 Venlafaxine HCl ER [Effexor Xr 75 mg Cap.sr] 75 mg PO Q8 07/25/17 Vitamin E 400 unit PO DAILY 07/25/17 Zolpidem Tartrate [Ambien 5 mg Tablet] 5 mg PO QHS 07/25/17 Benzonatate [Tessalon Perles 100 mg Capsule] 100 mg PO Q8HP PRN #30 capsule 05/04 Oseltamivir Phosphate [Tamiflu 75 mg Capsule] 75 mg PO BID #6 capsule 07/28/17 Sulfamethoxazole/Trimethoprim [Bactrim Ds Tablet] 1 each PO BID #10 tablet 07/28 History of Present Illness Patient complains of: Not Feeling well History of Present Illness: PAULINE BOSCH is a 67 year old female resents to the hospital with complaint of not feeling well. Patient reported that she had been around her son-in-law who was diagnosed with the flu. Patient also reported strong odor to urine. Hospital Course Hospital Course: Patient 67-year-old female that presented to our facility with complaint of not feeling well. Patient was found to have acute cystitis secondary to ESBL E. coli and was placed on Bactrim. Patient was also treated for presumed flu due to her exposure to a flu positive patient. Patient has received steroids and breathing treatments and breathing has improved. Patient was stable for discharge home. Physical Exam Vital Signs: Temp Pulse Resp BP Pulse Ox 98.0 F 82 18 111/70 96 07/28/17 10:32 07/28/17 10:32 07/28/17 10:32 07/28/17 10:32 07/28/17 10:32 Intake & Output 07/27/17 07/28/17 07/29/17 06:59 06:59 06:59 Intake Total 180 2056 Output Total 200 2700 Balance -20 -644 Weight 112.2 kg 117.6 kg General appearance: PRESENT: no acute distress, well-developed, well-nourished Head exam: PRESENT: atraumatic, normocephalic Eye exam: PRESENT: conjunctiva pink, EOMI. ABSENT: scleral icterus Ear exam: PRESENT: normal external ear exam Mouth exam: PRESENT: moist, tongue midline Neck exam: ABSENT: carotid bruit, JVD, lymphadenopathy, thyromegaly Respiratory exam: PRESENT: wheezes - Scant Cardiovascular exam: PRESENT: RRR. ABSENT: diastolic murmur, rubs, systolic murmur Pulses: PRESENT: normal dorsalis pedis pul Vascular exam: PRESENT: normal capillary refill GI/Abdominal exam: PRESENT: normal bowel sounds, soft. ABSENT: distended, guarding, mass, organolmegaly, rebound, tenderness Rectal exam: PRESENT: deferred Extremities exam: PRESENT: full ROM. ABSENT: calf tenderness, clubbing, pedal edema Neurological exam: PRESENT: alert, awake, oriented to person, oriented to place , oriented to time, oriented to situation, CN II-XII grossly intact. ABSENT: motor sensory deficit Psychiatric exam: PRESENT: appropriate affect, normal mood. ABSENT: homicidal ideation, suicidal ideation Skin exam: PRESENT: dry, intact, warm. ABSENT: cyanosis, rash Results Laboratory Results: 07/28/17 06:58 07/28/17 06:58 07/28/17 07/28/17 06:58 06:58 WBC 3.2 L RBC 4.43 Hgb 12.3 Hct 37.7 MCV 85 MCH 27.7 MCHC 32.6 RDW 15.4 H Plt Count 153 Seg Neutrophils % 70.9 Lymphocytes % 19.9 Monocytes % 9.0 Eosinophils % 0.1 Basophils % 0.1 Absolute Neutrophils 2.3 Absolute Lymphocytes 0.6 Absolute Monocytes 0.3 Absolute Eosinophils 0.0 Absolute Basophils 0.0 Sodium 140.2 Potassium 3.4 L Chloride 102 Carbon Dioxide 28 Anion Gap 10 BUN 10 Creatinine 0.62 Est GFR ( Amer) > 60 Est GFR (Non-Af Amer) > 60 Glucose 93 Calcium 9.0 Magnesium 1.9 Impressions: Chest X-Ray 07/27/17 06:00 IMPRESSION: NO ACUTE RADIOGRAPHIC FINDING IN THE CHEST. Plan Time Spent: Greater than 30 Minutes
== END 2017-07-28 15:31 | disposition home or self-care (01) | DRG 871 ==
LOC: ER 13:52 → EH 19:54 → 4N 07-26 20:16
PROVIDERS: ADMIT Pediatrics; ATTEND Pediatrics
PROC: 3E0F73Z Introduction of Anti-inflammatory into Respiratory Tract, Via Natural or Artificial Opening (ICD-10-PCS; principal; 2017-07-26)
DX: A41.89 Other specified sepsis (principal); J96.01 Acute respiratory failure with hypoxia; Z68.43 Body mass index [BMI] 50.0-59.9, adult; N30.00 Acute cystitis without hematuria; J20.9 Acute bronchitis, unspecified; B96.20 Unspecified Escherichia coli [E. coli] as the cause of diseases classified elsewhere; B34.9 Viral infection, unspecified; E66.01 Morbid (severe) obesity due to excess calories; M79.7 Fibromyalgia; E03.9 Hypothyroidism, unspecified; F41.9 Anxiety disorder, unspecified; F32.9 Major depressive disorder, single episode, unspecified; E78.5 Hyperlipidemia, unspecified; I50.9 Heart failure, unspecified; K21.9 Gastro-esophageal reflux disease without esophagitis; D64.9 Anemia, unspecified; Z79.891 Long term (current) use of opiate analgesic; Z90.49 Acquired absence of other specified parts of digestive tract; Z82.61 Family history of arthritis
CPT/HCPCS: 36415; 71045; 71046; 80048; 80053; 81001; 82803; 82962; 83605; 83735; 83880; 85025; 85610; 87040; 87086; 87088; 87186; 87804; 93005; 93010; 94640; 96361; 96374; 99285; J0696; J2405; J2930; J3475; J3490; J7512; J7620

== ENCOUNTER → 2017-11-26 | Outpatient (CLI) | payer MEDICARE, OTHER ==
--- NOTE | 2017-11-26 11:16 | RADIOLOGY REPORT (SQ) ---
EXAM DESCRIPTION: UGI SERIES COMPLETED DATE/TIME: 11/26/2017 9:42 am REASON FOR STUDY: PNEUMONITIS DUE TO INHALATION OF FOOD AND VOMIT J69.0 PNEUMONITIS DUE TO INHALATI ON OF FOOD AND VOMIT COMPARISON: CT chest 06/15/2017 Video assisted swallowing study 06/18/2017 TECHNIQUE: Under fluoroscopic guidance, patient ingested effervescent granules followed by thick and thin barium. Fluoroscopic spot images and routine radiographic images acquired and stored on PACS. 12 MM BARIUM TABLET GIVEN: Yes No significant delay in passage. LIMITATIONS: None. FLUOROSCOPY TIME: FLUORO TIME: 2.5 minutes 13 series of images saved to PACS. FINDINGS: NEUROMUSCULAR COORDINATION OF SWALLOW: Normal. No aspiration. ESOPHAGEAL MOTILITY: Normal peristalsis. No esophageal spasm. ESOPHAGEAL MUCOSA: Normal mucosa without masses or ulceration. GASTRO-ESOPHAGEAL JUNCTION: No hiatal hernia. Mild gastroesophageal reflux. STOMACH: Post gastric bypass. A small fundal pouch promptly empties into normal caliber small bowel. GASTRIC OUTLET: Post gastric bypass DUODENAL BULB: Not visualized DUODENUM: Not visualized PROXIMAL SMALL BOWEL: Small gastric fundal pouch promptly empties into normal caliber small bowel loo ps. NON-GI TRACT STRUCTURES: No significant finding. OTHER: No other significant finding. IMPRESSION: Post gastric bypass. Small fundal pouch promptly empties into normal caliber small traci l. Mild gastroesophageal reflux COMMENT: Quality ID [id number]: Final reports for procedures using fluoroscopy that document radiation exp osure indices, or exposure time and number of fluorographic images (if radiation exposure indices are not available) TECHNICAL DOCUMENTATION: JOB ID: [id number] [employer]- All Rights Reserved Reading location - IP/workstation name: [email or web address]
[2017-11-29 08:48] LABS: IMMUNOGLOBULIN D QUANT SERUM 1.9 mg/dL (<14.11)
== END ==
LOC: RAD 08:49
PROVIDERS: ATTEND Internal Medicine Pulmonary Disease
DX: J69.0 Pneumonitis due to inhalation of food and vomit (principal)
CPT/HCPCS: 36415; 74247; 82784

== ENCOUNTER 2018-02-26 13:49 | Emergency (ER) | payer MEDICARE, OTHER ==
[2018-02-26] MEDS ORDERED: ASPIRIN 81 MG TABLET, CHEWABLE PO ONE (14:48)
--- NOTE | 2018-02-26 14:51 | ER Document Report ---
ED Medical Screen (RME) - General Chief Complaint: Chest Pain Stated Complaint: CHEST PAIN Time Seen by Provider: 02/26/18 14:40 Mode of Arrival: Ambulatory Information source: Patient Notes: Patient is complaining of chest pain. She says she has had heart attack in the past. She also complaining of shortness of breath. I have greeted and performed a rapid initial assessment of this patient. A comprehensive ED assessment and evaluation of the patient, analysis of test results and completion of the medical decision making process will be conducted by additional ED providers. TRAVEL OUTSIDE OF THE [place] IN LAST 30 DAYS: No - Related Data Allergies/Adverse Reactions: No Known Allergies Allergy (Verified 02/26/18 14:39) Past Medical History - Social History Chew tobacco use (# tins/day): No Frequency of alcohol use: None Drug Abuse: None - Past Medical History Cardiac Medical History: Reports: Hx Congestive Heart Failure, Hx Heart Attack, Hx Hypercholesterolemia Endocrine Medical History: Reports: Hx Hypothyroidism Renal/ Medical History: Denies: Hx Peritoneal Dialysis GI Medical History: Reports: Hx Gastroesophageal Reflux Disease Psychiatric Medical History: Reports: Hx Depression Past Surgical History: Reports: Hx Abdominal Surgery - gastric bypass, Hx Section, Hx Cholecystectomy - Immunizations History of Influenza Vaccine for 03/2017 - 08/2017 Season: Yes Influenza Administration Date for 03/2017 - 08/2017 Season: 02/15/17 Physical Exam - Vital signs Vitals: Temp Pulse Resp BP Pulse Ox 98.1 F 71 20 137/72 H 100 02/26/18 14:08 02/26/18 14:08 02/26/18 14:08 02/26/18 14:08 02/26/18 14:08 Course - Vital Signs Vital signs: Temp Pulse Resp BP Pulse Ox 98.1 F 71 20 137/72 H 100 02/26/18 14:08 02/26/18 14:08 02/26/18 14:08 02/26/18 14:08 02/26/18 14:08 Doctor's Discharge - Discharge Referrals: ISAC REESE MD [Primary Care Provider] - Follow up as needed
[2018-02-26 15:25] LABS: ABSOLUTE EOSINOPHILS # (AUTO) 0.1 10^3/uL (0.0-0.6); ABSOLUTE LYMPHOCYTES (AUTO) 1.4 10^3/uL (0.5-4.7); ABSOLUTE MONOCYTES (AUTO) 0.4 10^3/uL (0.1-1.4); BASOPHILS % (AUTO) 0.6 % (0-2); EOSINOPHILS % (AUTO) 1.8 % (0-6); HEMATOCRIT 41.8 % (36.0-47.0); HEMOGLOBIN 13.7 g/dL (12.0-15.5); LYMPHOCYTES % (AUTO) 28.7 % (13-45); MEAN CORPUSCULAR HGB CONC 32.9 g/dL (32.0-36.0); MEAN CORPUSCULAR VOLUME 88 fl (80-97); MONOCYTES % (AUTO) 8.4 % (3-13); PLATELET COUNT 227 10^3/uL (150-450); RED BLOOD COUNT 4.74 10^6/uL (3.72-5.28); RED CELL DISTRIBUTION WIDTH 14.3 % (11.5-14.0); SEGMENTED NEUTROPHILS % (AUTO) 60.5 % (42-78); TOTAL CELLS COUNTED % (AUTO) 100 %; WHITE BLOOD COUNT 4.9 10^3/uL (4.0-10.5)
[2018-02-26 15:32] LABS: INTERNATIONAL RATION (INR) 0.92; PROTHROMBIN TIME 12.9 SEC (11.4-15.4)
[2018-02-26 15:44] LABS: ALANINE AMINOTRANSFERASE 26 U/L (9-52); ALBUMIN 3.5 g/dL (3.5-5.0); ALKALINE PHOSPHATASE 105 U/L (38-126); ANION GAP 5 (5-19); ASPARTATE AMINO TRANSFERASE 29 U/L (14-36); BILIRUBIN,DIRECT 0.3 mg/dL (0.0-0.4); BILIRUBIN,TOTAL 0.5 mg/dL (0.2-1.3); BLOOD UREA NITROGEN 4 mg/dL (7-20); CALCIUM 9.1 mg/dL (8.4-10.2); CARBON DIOXIDE 28 mmol/L (22-30); CHLORIDE 112 mmol/L (98-107); CREATINE KINASE 59 U/L (30-135); GLUCOSE 102 mg/dL (75-110); POTASSIUM 4.1 mmol/L (3.6-5.0); SODIUM 144.7 mmol/L (137-145)
--- NOTE | 2018-02-26 15:47 | RADIOLOGY REPORT (SQ) ---
EXAM DESCRIPTION: CHEST SINGLE VIEW COMPLETED DATE/TIME: 02/26/2018 3:35 pm REASON FOR STUDY: chest pain COMPARISON: July 2017 EXAM PARAMETERS: NUMBER OF VIEWS: One view. TECHNIQUE: Single frontal radiographic view of the chest acquired. RADIATION DOSE: NA LIMITATIONS: None. FINDINGS: LUNGS AND PLEURA: There is ill-defined increased density projected in the right [place] thorax which is felt to be related to asymmetric overlying soft tissues. No acute consolidations or pleural effusions are identified. MEDIASTINUM AND HILAR STRUCTURES: No masses. Contour normal. HEART AND VASCULAR STRUCTURES: The configuration of the heart mediastinal structures is unchanged BONES: No acute findings. HARDWARE: None in the chest. OTHER: Patient is status post apparent left mastectomy IMPRESSION: NO ACUTE RADIOGRAPHIC FINDING IN THE CHEST. TECHNICAL DOCUMENTATION: JOB ID: [id number] [employer]- All Rights Reserved Reading location - IP/workstation name: [facility]
[2018-02-26 15:55] LABS: CREATINE KINASE MB 0.63 ng/mL (<4.55)
[2018-02-26 15:56] LABS: TROPONIN I < 0.012 ng/mL
--- NOTE | 2018-02-26 17:05 | ER Document Report ---
ED General - General Chief Complaint: Chest Pain Stated Complaint: CHEST PAIN Time Seen by Provider: 02/26/18 14:40 Mode of Arrival: Ambulatory Notes: Patient says she is having intermittent chest pains for the past 2 days. She says the pain starts as a "pressure" across the anterior chest and goes into the left arm and left shoulder and then around into the left back. It started yesterday and the patient thought it might be stress for which she took 1 of her Xanax. She has depression and anxiety. She says she is very stressed about the approaching [place]. This first episode yesterday lasted about an hour. She took a Xanax and does not think it helped any. She only had that one episode yesterday and then another one this morning. The most recent episode was earlier this morning and it also lasted about an hour. The only thing she is found that sometimes helps the pain is to lay on her left side. Has never had this previously. She also has some shortness of breath and some difficulty breathing for the past 3 days. History of asthma. Has not had a recent illness or fever or chills or cough. Patient says that she was told once about 5 years ago that she had a "minor heart attack". No history of any cardiac cath. None of her current symptoms are like she has had previously with that "minor heart attack". TRAVEL OUTSIDE OF THE [place] IN LAST 30 DAYS: No - Related Data Allergies/Adverse Reactions: No Known Allergies Allergy (Verified 02/26/18 14:39) Past Medical History - General Information source: Patient - Social History Smoking Status: Never Smoker Chew tobacco use (# tins/day): No Frequency of alcohol use: None Drug Abuse: None Family History: Reviewed & Not Pertinent Patient has suicidal ideation: No Patient has homicidal ideation: No - Past Medical History Cardiac Medical History: Reports: Hx Congestive Heart Failure, Hx Heart Attack, Hx Hypercholesterolemia Endocrine Medical History: Reports: Hx Hypothyroidism Renal/ Medical History: Denies: Hx Peritoneal Dialysis GI Medical History: Reports: Hx Gastroesophageal Reflux Disease Musculoskeletal Medical History: Reports Other - Lymphedema of the left leg secondary to old trauma. Psychiatric Medical History: Reports: Hx Anxiety, Hx Depression Past Surgical History: Reports: Hx Abdominal Surgery - gastric bypass, Hx Section, Hx Cholecystectomy, Hx Herniorrhaphy - Immunizations Hx Pneumococcal Vaccination: 06/17/16 Review of Systems - Review of Systems Notes: REVIEW OF SYSTEMS: CONSTITUTIONAL : Denies fever. EENT: Denies eye, ear, nose or mouth or throat pain or other symptoms. CARDIOVASCULAR: See HPI. RESPIRATORY: Denies cough, but has felt chest congestion, or shortness of breath for 2-3 days.. GASTROINTESTINAL: Denies abdominal pain or nausea, vomiting, or diarrhea. GENITOURINARY: Denies difficulty or painful urinating, urinary frequency, blood in urine. MUSCULOSKELETAL: Denies back or neck pain. Denies joint pain or swelling. Lymphedema of the left leg. No erythema or increased heat, tenderness or pain to palpation of this leg or the other leg. Therefore, nothing to suggest DVT. SKIN: Denies rash or skin lesions. NEUROLOGICAL: Denies LOC or altered mental status. Denies headache. Denies sensory loss or motor deficits. ALL OTHER SYSTEMS REVIEWED AND NEGATIVE. Physical Exam - Vital signs Vitals: Temp Pulse Resp BP Pulse Ox 98.1 F 71 20 137/72 H 100 02/26/18 14:08 02/26/18 14:08 02/26/18 14:08 02/26/18 14:08 02/26/18 14:08 Interpretation: Normal Notes: PHYSICAL EXAMINATION: GENERAL: Well-appearing, in no acute distress. HEAD: Atraumatic, normocephalic. EYES: Pupils equal round and reactive to light, extraocular movements intact. ENT: oropharynx clear without exudates. Moist mucous membranes. NECK: Normal range of motion, supple. LUNGS: Breath sounds clear and equal bilaterally. HEART: Regular rate and rhythm without murmurs. ABDOMEN: Soft, nontender. No guarding or rebound. No masses. BACK: No tenderness throughout entire back. EXTREMITIES: Normal range of motion without pain. Lymphedema of the left lower leg, but no erythema, tense swelling, tenderness, increased heat, etc. No evidence of DVT. NEUROLOGICAL: Normal speech. Normal sensory, motor, and reflex exams. Awake, alert, and oriented x3. Cranial nerves normal. PSYCH: Normal mood, normal affect. Anxious. SKIN: Warm, dry, no rashes. Course - Re-evaluation Re-evalutation: 02/26/18 19:21 Patient did not have any pains whatsoever during her entire stay in the emergency department. Her workup was all entirely normal. She is only had 2 episodes of this pain, one yesterday and one this morning. They both lasted about an hour and then went away. Does not sound like cardiac pain. Likely anxiety playing a role. - Vital Signs Vital signs: Temp Pulse Resp BP Pulse Ox 98.1 F 71 13 114/69 98 02/26/18 14:08 02/26/18 14:08 02/26/18 17:43 02/26/18 17:43 02/26/18 17:43 - Laboratory Result Diagrams: 02/26/18 15:16 02/26/18 15:16 Laboratory results interpreted by me: 02/26/18 02/26/18 15:16 15:16 RDW 14.3 H Chloride 112 H BUN 4 L Total Protein 6.0 L - Diagnostic Test Radiology results interpreted by tx: 02/26/18 19:20 Chest x-ray shows left breast surgery. Patient had a lumpectomy. Otherwise, the chest x-ray is normal. - EKG Interpretation by [facility] EKG shows normal: Sinus rhythm Rate: Normal Rhythm: NSR Additional EKG results interpreted by me: 02/26/18 17:14 Poor R-wave progression in the anterior precordial leads. Low voltage. Discharge - Discharge Clinical Impression: Chest pain, non-cardiac, Anxiety Condition: Stable Disposition: HOME, SELF-CARE Additional Instructions: CHEST PAIN OF UNCLEAR CAUSE: The exact cause of your chest pain isn't clear. Fortunately, there is no evidence of a dangerous medical condition. Further testing may be required to find the source of the pain. Most often, we find that this pain is coming from the chest wall -- the muscles or rib joints in the chest. But chest pain can come from the lung and lung lining, the esophagus, the heart valves or heart lining, and even the stomach or gallbladder. Rest. Eat lightly until the pain is gone. We may prescribe medicine for pain and inflammation. You should call the physician immediately if the pain radiates to the shoulder, jaw or arms; if you start to run a fever or develop a cough; or if you develop shortness of breath, or other new or alarming symptoms. At this time, all of your lab studies are normal. There is no indication that your pain is coming from your heart. NORMAL EXAM AND WORKUP: At this time, your examination and workup show no significant abnormality. No significant abnormal physical findings were noted. All laboratory, EKG, and imaging (x-ray, CT scans, ultrasound) studies that were ordered show no significant abnormality. Although your examination and all studies that were ordered showed no significant abnormal finding, there are no examinations and no studies that are 100% accurate. There is always the possibility that some abnormality could exist and not be detected with physical examination or within the limits and capabilities of laboratory and other studies. You should return or follow up as you were instructed on your visit today for further evaluation if your symptoms do not resolve. CHEST WALL PAIN: Your chest pain may be coming from the chest wall. This is often caused by straining the muscles or joints in the chest during physical activity, direct trauma, coughing, or vigorous vomiting. Persons with arthritis are especially prone to this type of pain, due to inflammation of the cartilage joints near the breast bone. Occasionally, no cause can be found. Rest from strenuous physical activity. This kind of chest pain is usually made worse by movement of the chest. Depending on the symptoms, we may prescribe medicine for pain, muscle relaxation, and antiinflammatory effects. If the pain is new, and seems to be due to muscle strain, cold packs can help. Otherwise, apply gentle warmth to the painful area for 15 minutes every hour or two. You should call contact the doctor immediately if things change. Further evaluation is needed if you develop a fever or cough, if the nature of the pain changes, or if you become short of breath. Anxiety The physician feels that some of your health problems are being caused by anxiety. Anxiety affects your health in many ways. Anxiety alone can cause palpitations, sweats, chest pains, abdominal pains, shortness of breath, and headaches. It contributes to ulcer disease, high blood pressure, irritable bowel syndrome, and has been shown to cause flare-ups of many other diseases. Anxiety is not a simple disorder to treat. If the anxiety is due to recent life stresses, you may simply need time to "work through" the changes. If the anxiety is due to an underlying unhappiness with yourself or due to psychiatric disturbance, professional help will be needed. Your physician can refer you for further help if needed. Anti-anxiety medication is occasionally given if the stress is acute or if you are having trouble sleeping. Chronic or frequent use of these medications is not a good idea because the body becomes reliant on it, preventing you from dealing with life's normal stresses. Take your Xanax pills 3 times a day, each day for the next several days until the storm passes. After that, resume taking the Xanax pills if needed. FOLLOW-UP CARE: If you have been referred to a physician for follow-up care, call the physician s office for an appointment as you were instructed or within the next two days. If you experience worsening or a significant change in your symptoms, notify the physician immediately or return to the Emergency Department at any time for re-evaluation. Referrals: ISAC REESE MD [Primary Care Provider] - Follow up as needed
[2018-02-26 17:46] VITALS: BP 114/69
--- NOTE | 2018-02-26 18:29 | EKG REPORT ---
SEVERITY:- ABNORMAL ECG - SINUS RHYTHM PROBABLE INFERIOR INFARCT, AGE INDETERMINATE BORDERLINE R WAVE PROGRESSION, ANTERIOR LEADS : Confirmed by: Trina Crowe 26-Feb-2018 18:28:31
== END 2018-02-26 17:56 | disposition home or self-care (01) ==
LOC: ER 13:49
DX: R07.89 Other chest pain (principal); F41.9 Anxiety disorder, unspecified
CPT/HCPCS: 93005; 99285; 36415; 82553; 82550; 85025; 85610; 80053; 84484; 71045; 93010; A9270

== ENCOUNTER 2018-12-19 02:29 | Emergency (ER) | payer MEDICARE | END 2018-12-19 03:00 | disposition left against medical advice (07) | LOC: ER 02:29 | DX: Z53.21 Procedure and treatment not carried out due to patient leaving prior to being seen by health care provider (principal) ==

== ENCOUNTER → 2019-01-14 | Outpatient (CLI) | payer MEDICARE, OTHER ==
--- NOTE | 2019-01-14 10:37 | RADIOLOGY REPORT (SQ) ---
EXAM DESCRIPTION: CT CHEST WITHOUT COMPLETED DATE/TIME: 01/14/2019 9:16 am REASON FOR STUDY: J69.0 PNEUMONITIS DUE TO INHALATION OF FOOD AND VOMIT J69.0 PNEUMONITIS DUE TO IN HALATION OF FOOD AND VOMIT COMPARISON: CT chest dated 06/15/2017 TECHNIQUE: CT scan performed of the chest without intravenous contrast. Images reviewed with lung, soft tissue and bone windows. Reconstructed coronal and sagittal MPR images reviewed. All images st ored on PACS. All CT scanners at this facility use dose modulation, iterative reconstruction, and/or weight based d osing when appropriate to reduce radiation dose to as low as reasonably achievable (ALARA). [facility]: Dose Right [facility]: CareDose [facility]: Dose Right [facility]: Teradose 4D [facility]: Appsee RADIATION DOSE: CT Rad equipment meets quality standard of care and radiation dose reduction techniq ues were employed. CTDIvol: 17.9 mGy. DLP: 653 mGy-cm. mGy. LIMITATIONS: No technical limitations. FINDINGS: LUNGS AND PLEURA: Left upper lobe airspace has resolved. There are areas of bandlike scar ring in both lung bases. No effusions. No pneumothorax. HILAR AND MEDIASTINAL STRUCTURES: No identified masses or abnormal nodes. No obvious aneurysm. HEART AND VASCULAR STRUCTURES: No aneurysm. No pericardial effusion. UPPER ABDOMEN: Large upper anterior abdominal wall defect. This contains large and small bowel. THYROID AND OTHER SOFT TISSUES: No masses. No adenopathy. BONES: No significant finding. HARDWARE: None in the chest. OTHER: No other significant findings. IMPRESSION: NO SIGNIFICANT FINDING ON NON-CONTRASTED CHEST CT. TECHNICAL DOCUMENTATION: JOB ID: [id number] Quality ID # [id number]: Final reports with documentation of one or more dose reduction techniques (e.g., Au tomated exposure control, adjustment of the mA and/or kV according to patient size, use of iterative reconstruction technique) 2010 [employer]- All Rights Reserved Reading location - IP/workstation name: [email or web address]
== END ==
LOC: RAD 08:50
PROVIDERS: ATTEND Internal Medicine Pulmonary Disease
DX: J69.0 Pneumonitis due to inhalation of food and vomit (principal)
CPT/HCPCS: 71250

== ENCOUNTER 2019-04-30 00:07 | Inpatient (IN) | payer MEDICARE, OTHER ==
[2019-04-30] MEDS ORDERED: MAGNESIUM SULFATE/D5W 1 GM/100 ML RTUPB IV ONE (00:21)
--- NOTE | 2019-04-30 00:22 | ER Document Report ---
ED General - General Stated Complaint: DIFFICULTY BREATHING Time Seen by Provider: 04/30/19 00:21 Primary Care Provider: ISAC REESE MD [Primary Care Provider] - Follow up as needed TRAVEL OUTSIDE OF THE [place] IN LAST 30 DAYS: No - Related Data Allergies/Adverse Reactions: No Known Allergies Allergy (Verified 02/26/18 14:39) Past Medical History - Social History Family History: Reviewed & Not Pertinent - Past Medical History Cardiac Medical History: Reports: Hx Congestive Heart Failure, Hx Heart Attack, Hx Hypercholesterolemia Endocrine Medical History: Reports: Hx Hypothyroidism Renal/ Medical History: Denies: Hx Peritoneal Dialysis GI Medical History: Reports: Hx Gastroesophageal Reflux Disease Psychiatric Medical History: Reports: Hx Anxiety, Hx Depression Past Surgical History: Reports: Hx Abdominal Surgery - gastric bypass, Hx Section, Hx Cholecystectomy, Hx Herniorrhaphy - Immunizations Hx Pneumococcal Vaccination: 06/17/16 Discharge - Discharge Referrals: ISAC REESE MD [Primary Care Provider] - Follow up as needed
[2019-04-30] MEDS ORDERED: IPRATROPIUM/ALBUTEROL 0.5-2.5 MG/3 ML AMPUL NEB ONE ×2 (00:24→00:25)
[2019-04-30] MEDS ORDERED: ACETAMINOPHEN 325 MG TABLET PO ONE (00:30)
[2019-04-30] MEDS ORDERED: PIPERACILLIN/TAZOBACTAM 4.5 GM VIAL IV ONE (00:30)
[2019-04-30] MEDS ORDERED: AZITHROMYCIN INJ 500 MG VIAL IV ONE (00:30)
[2019-04-30] MEDS: MAGNESIUM SULFATE/D5W 1 GM/100 ML RTUPB IV SCH ×2 (00:33→00:48)
--- NOTE | 2019-04-30 00:37 | RADIOLOGY REPORT (SQ) ---
EXAM DESCRIPTION: XR CHEST 1 VIEW COMPLETED DATE/TME: 04/30/2019 00:10 CLINICAL HISTORY: RESPIRATORY DISTRESS COMPARISON: 02/26/2018 FINDINGS: Single frontal view of the chest. Cardiomediastinal silhouette: Atherosclerotic calcification tortuosity of thoracic aorta. Heart is not enlarged. Lungs: Leads overlie the chest. Patchy right mid lung airspace opacity. No pneumothorax or large effusion. Bones: Degenerative change of the spine and shoulders. Upper abdomen: No abnormality identified. IMPRESSION: 1. Patchy right mid lung airspace opacity may represent atelectasis or developing pneumonic process.
[2019-04-30 00:47] LABS: ABSOLUTE EOSINOPHILS # (AUTO) 0.1 10^3/uL (0.0-0.6); ABSOLUTE LYMPHOCYTES (AUTO) 1.6 10^3/uL (0.5-4.7); ABSOLUTE MONOCYTES (AUTO) 0.6 10^3/uL (0.1-1.4); BASOPHILS % (AUTO) 0.6 % (0-2); EOSINOPHILS % (AUTO) 1.5 % (0-6); HEMATOCRIT 40.7 % (36.0-47.0); HEMOGLOBIN 13.7 g/dL (12.0-15.5); LYMPHOCYTES % (AUTO) 21.6 % (13-45); MEAN CORPUSCULAR HEMOGLOBIN 29.5 pg (27.0-33.4); MEAN CORPUSCULAR HGB CONC 33.6 g/dL (32.0-36.0); MEAN CORPUSCULAR VOLUME 88 fl (80-97); MONOCYTES % (AUTO) 8.3 % (3-13); PLATELET COUNT 176 10^3/uL (150-450); RED BLOOD COUNT 4.64 10^6/uL (3.72-5.28); TOTAL CELLS COUNTED % (AUTO) 100 %; WHITE BLOOD COUNT 7.4 10^3/uL (4.0-10.5)
[2019-04-30 00:58] LABS: INTERNATIONAL RATION (INR) 0.96; PROTHROMBIN TIME 12.8 SEC (11.4-15.4)
[2019-04-30 01:06] LABS: ALBUMIN 3.8 g/dL (3.5-5.0); ALKALINE PHOSPHATASE 81 U/L (38-126); ANION GAP 8 (5-19); ASPARTATE AMINO TRANSFERASE 43 U/L (14-36); BILIRUBIN,DIRECT 0.3 mg/dL (0.0-0.4); BILIRUBIN,TOTAL 0.5 mg/dL (0.2-1.3); BLOOD UREA NITROGEN 14 mg/dL (7-20); CARBON DIOXIDE 27 mmol/L (22-30); CHLORIDE 107 mmol/L (98-107); CREATINE KINASE 277 U/L (30-135); GLUCOSE 84 mg/dL (75-110); POTASSIUM 3.8 mmol/L (3.6-5.0); TOTAL PROTEIN 6.7 g/dL (6.3-8.2)
[2019-04-30 01:22] LABS: NT PRO BNP 106 pg/mL (<125)
[2019-04-30 01:23] LABS: TROPONIN I < 0.012 ng/mL
[2019-04-30] MEDS ORDERED: NORMAL SALINE 1000 ML 1,000 ML IV ONE (02:01)
[2019-04-30 03:03] LABS: ARTERIAL BLOOD BASE EXCESS -4.1 mmol/L; ARTERIAL BLOOD H2CO3 1.01 mmol/L (1.05-1.35); ARTERIAL BLOOD HCO3 19.9 mmol/L (20-24); ARTERIAL BLOOD O2 SATURATION 90.5 % (94-98); ARTERIAL BLOOD PCO2 33.4 mmHg (35-45); ARTERIAL BLOOD PH 7.39 (7.35-7.45); ARTERIAL BLOOD PO2 58.5 mmHg (80-100); ARTERIAL BLOOD TOTAL CO2 20.9 mmol/L (21-25)
[2019-04-30 03:18] LABS: ARTERIAL BLOOD FIO2 3L
[2019-04-30] MEDS ORDERED: IBUPROFEN 800 MG TABLET PO ONE (03:39)
--- NOTE | 2019-04-30 03:39 | ER Document Report ---
ED Respiratory Problem - General Chief Complaint: Shortness Of Breath Stated Complaint: DIFFICULTY BREATHING Time Seen by Provider: 04/30/19 00:21 Notes: Patient is a 69-year-old female history of COPD presents to the emergency department for respiratory distress. States she is currently taking prednisone and Augmentin for suspected left lower pneumonia. States she has taken 3 albuterol treatments throughout the day. States she has continued with respiratory distress which is why 911 was alerted. EMS gave the patient 1 DuoNeb and 125 mg of Solu-Medrol IVP. States initially patient had oxygen saturations in the high 80s. Patient is denying any chest pain or dysuria. She is denying any abdominal pain. Patient denies any history of congestive heart failure. States she feels as though it is hard to take a deep breath. TRAVEL OUTSIDE OF THE [place] IN LAST 30 DAYS: No - Related Data Allergies/Adverse Reactions: No Known Allergies Allergy (Verified 02/26/18 14:39) Home Medications: Pt shook head when asked if medications were bought in Past Medical History - General Information source: Patient, Emergency Med Personnel - Social History Smoking Status: Never Smoker Family History: Reviewed & Not Pertinent Patient has suicidal ideation: No Patient has homicidal ideation: No - Past Medical History Cardiac Medical History: Reports: Hx Congestive Heart Failure, Hx Heart Attack, Hx Hypercholesterolemia Endocrine Medical History: Reports: Hx Hypothyroidism Renal/ Medical History: Denies: Hx Peritoneal Dialysis GI Medical History: Reports: Hx Gastroesophageal Reflux Disease Psychiatric Medical History: Reports: Hx Anxiety, Hx Depression Past Surgical History: Reports: Hx Abdominal Surgery - gastric bypass, Hx Section, Hx Cholecystectomy, Hx Herniorrhaphy - Immunizations Hx Pneumococcal Vaccination: 06/17/16 Review of Systems - Review of Systems Constitutional: Fever EENT: No symptoms reported Cardiovascular: See HPI Respiratory: See HPI Gastrointestinal: No symptoms reported Genitourinary: No symptoms reported Female Genitourinary: No symptoms reported Musculoskeletal: No symptoms reported Skin: No symptoms reported Hematologic/Lymphatic: No symptoms reported Neurological/Psychological: No symptoms reported Physical Exam - Vital signs Vitals: Temp Resp BP Pulse Ox 101.5 F H 25 H 148/105 H 91 L 04/30/19 00:15 04/30/19 00:15 04/30/19 00:15 04/30/19 00:15 - Notes Notes: GENERAL: Alert, interacts well. Tachypneic on DuoNeb treatment. HEAD: Normocephalic, atraumatic. EYES: Pupils equal, round, and reactive to light. Extraocular movements intact. ENT: Oral mucosa moist, tongue midline. NECK: Full range of motion. Supple. Trachea midline. LUNGS: Expiratory wheeze to auscultation bilaterally, no discernible rales, or rhonchi. HEART: Tachycardic rate and rhythm. No murmur ABDOMEN: Soft, non-tender. Non-distended. Bowel sounds present in all 4 quadrants. EXTREMITIES: Moves all 4 extremities spontaneously. No edema, normal radial and dorsalis pedis pulses bilaterally. No cyanosis. BACK: no cervical, thoracic, lumbar midline tenderness. No saddle anesthesia, normal distal neurovascular exam. NEUROLOGICAL: Alert and oriented x3. Normal speech. cranial nerves II through XII grossly intact PSYCH: Normal affect, normal mood. SKIN: Warm, dry, normal turgor. No rashes or lesions noted. Course - Re-evaluation Re-evalutation: Laboratory 04/30/19 04/30/19 04/30/19 00:20 00:20 00:20 WBC 7.4 RBC 4.64 Hgb 13.7 Hct 40.7 MCV 88 MCH 29.5 MCHC 33.6 RDW 15.0 H Plt Count 176 Lymph % (Auto) 21.6 [place] % (Auto) 8.3 Eos % (Auto) 1.5 Baso % (Auto) 0.6 Absolute Neuts (auto) 5.0 Absolute Lymphs (auto) 1.6 Absolute Monos (auto) 0.6 Absolute Eos (auto) 0.1 Absolute Basos (auto) 0.0 Seg Neutrophils % 68.0 PT INR Carbonic Acid HCO3/H2CO3 Ratio ABG pH ABG pCO2 ABG pO2 ABG HCO3 ABG Total CO2 ABG O2 Saturation ABG Base Excess FiO2 Sodium 142.2 Potassium 3.8 Chloride 107 Carbon Dioxide 27 Anion Gap 8 BUN 14 Creatinine 0.89 Est GFR ( Amer) > 60 Est GFR (MDRD) Non-Af > 60 Glucose 84 Lactic Acid Calcium 9.0 Total Bilirubin 0.5 Direct Bilirubin 0.3 Neonat Total Bilirubin Not Reportable Neonat Direct Bilirubin Not Reportable Neonat Indirect Bili Not Reportable AST 43 H ALT 19 Alkaline Phosphatase 81 Creatine Kinase 277 H CK-MB (CK-2) 5.20 H Troponin I < 0.012 NT-Pro-B Natriuret Pep 106 Total Protein 6.7 Albumin 3.8 04/30/19 04/30/19 04/30/19 00:20 00:20 02:25 WBC RBC Hgb Hct MCV MCH MCHC RDW Plt Count Lymph % (Auto) [place] % (Auto) Eos % (Auto) Baso % (Auto) Absolute Neuts (auto) Absolute Lymphs (auto) Absolute Monos (auto) Absolute Eos (auto) Absolute Basos (auto) Seg Neutrophils % PT 12.8 INR 0.96 Carbonic Acid 1.01 L HCO3/H2CO3 Ratio 19:1 ABG pH 7.39 ABG pCO2 33.4 L ABG pO2 58.5 L ABG HCO3 19.9 L ABG Total CO2 20.9 L ABG O2 Saturation 90.5 L ABG Base Excess -4.1 FiO2 3L Sodium Potassium Chloride Carbon Dioxide Anion Gap BUN Creatinine Est GFR ( Amer) Est GFR (MDRD) Non-Af Glucose Lactic Acid 1.1 Calcium Total Bilirubin Direct Bilirubin Neonat Total Bilirubin Neonat Direct Bilirubin Neonat Indirect Bili AST ALT Alkaline Phosphatase Creatine Kinase CK-MB (CK-2) Troponin I NT-Pro-B Natriuret Pep Total Protein Albumin Chest X-Ray 04/30/19 00:10 IMPRESSION: 1. Patchy right mid lung airspace opacity may represent atelectasis or developing pneumonic process. Patient was placed on 2 L of oxygen by nursing staff as patient's 02 was noted to be 89% by staff radiologist. 02 now between 93-95% on 2 lpm. Pt stated she feels a lot better. When attempting to sit the Pt. up in bed she again gets tachypneic. I discussed this case with hospitalist Dr. Rios who will admit to the medical floor. - Vital Signs Vital signs: Temp Pulse Resp BP Pulse Ox 100.6 F H 18 118/81 93 04/30/19 02:03 04/30/19 02:00 04/30/19 01:55 04/30/19 02:00 - Laboratory Result Diagrams: 04/30/19 00:20 04/30/19 00:20 Laboratory results interpreted by me: 04/30/19 04/30/19 04/30/19 00:20 00:20 00:20 RDW 15.0 H Carbonic Acid ABG pCO2 ABG pO2 ABG HCO3 ABG Total CO2 ABG O2 Saturation AST 43 H Creatine Kinase 277 H CK-MB (CK-2) 5.20 H 04/30/19 02:25 RDW Carbonic Acid 1.01 L ABG pCO2 33.4 L ABG pO2 58.5 L ABG HCO3 19.9 L ABG Total CO2 20.9 L ABG O2 Saturation 90.5 L AST Creatine Kinase CK-MB (CK-2) Discharge - Discharge Clinical Impression: COPD exacerbation Pneumonia Qualifiers: Pneumonia type: due to unspecified organism Laterality: right Lung location: middle lobe of lung Qualified Code(s): J18.9 - Pneumonia, unspecified organism Fever Qualifiers: Fever type: unspecified Qualified Code(s): R50.9 - Fever, unspecified Condition: Stable Disposition: ADMITTED INPATIENT Admitting Provider: Gabriel (Hospitalist) Unit Admitted: Medical Floor
[2019-04-30] MEDS ORDERED: LEVALBUTEROL HCL NEB 0.63 MG/3 ML AMPUL NEB PRN (04:11)
[2019-04-30] MEDS ORDERED: GUAIFENESIN SYRP 200 MG/10 ML UDC PO PRN (04:11)
[2019-04-30] MEDS ORDERED: ACETAMINOPHEN 325 MG TABLET PO PRN (04:11)
[2019-04-30] MEDS ORDERED: IBUPROFEN 800 MG TABLET PO PRN (04:18)
[2019-04-30] MEDS ORDERED: MAG HYDROX/AL HYDROX/SIMETH SUSP 30 ML UDCUP PO PRN (04:18)
[2019-04-30] MEDS ORDERED: MAGNESIUM HYDROXIDE SUSP 30 ML UDCUP PO PRN (04:18)
[2019-04-30] MEDS ORDERED: NALBUPHINE HCL INJ 10 MG/1 ML AMPULE IV PRN ×2 (04:18→05:39)
[2019-04-30 05:11] LABS: APPEARANCE,URINE CLEAR; BILIRUBIN,URINE NEGATIVE (NEGATIVE); COLOR,URINE YELLOW; GLUCOSE, URINE NEGATIVE (NEGATIVE); KETONES,URINE NEGATIVE (NEGATIVE); LEUKOCYTE ESTERASE,URINE NEGATIVE (NEGATIVE); NITRITE,URINE NEGATIVE (NEGATIVE); PROTEIN,URINE NEGATIVE (NEGATIVE); UROBILINOGEN,URINE NEGATIVE mg/dL (<2.0)
[2019-04-30] MEDS ORDERED: CEFTRIAXONE 1 GM/D5W RTU 1 GM/50 ML RTUPB IV ONE (06:00)
--- NOTE | 2019-04-30 06:31 | PDOC H&P ---
History of Present Illness Admission Date/PCP: 04/30/2019 03:46 ISAC REESE MD Patient complains of: Dyspnea History of Present Illness: PAULINE BOSCH is a 69 year old female who presented to the emergency room with acute dyspnea. She admits developing increasing dyspnea earlier in the day (04/29/2019) which progressively worsened to become severe last evening and resulted in her summoning EMS to bring her to the hospital. Her dyspnea was made worse by activity and exertion. She admits having been treated for a suspected left lower lobe pneumonia by her primary care provider for the last six days. Her treatment had consisted of albuterol nebulizer treatments, oral prednisone and Augmentin, but she feels that she has not improved with treatment this time. She denied other accompanying or associated signs and symptoms. She admits prior similar episodes with exacerbations of her COPD and pneumonia with an most recent being February 12 of this year. She has not identified any additional aggravating or ameliorating factors for her dyspnea. Upon EMS arrival she was treated with a DuoNeb nebulizer and given Solu-Medrol 125 mg IV push. She was brought to the emergency room where she was found to have an O2 sat in the 80s and a fever of 101.5 F. She received several more breathing treatments and was provided with supplemental oxygen and showed significant improvement. She was subsequently admitted to the medical floor for further evaluation and treatment. Past Medical History Cardiac Medical History: Reports: Congestive Heart Failure, Hyperlipidema Denies: Atrial Fibrillation, Coronary Artery Disease, DVT, Myocardial Infarction, Hypertension, Peripheral Vascular Disease, Pulmonary Embolism Pulmonary Medical History: Reports: Bronchitis, Chronic Obstructive Pulmonary Disease (COPD), Pneumonia, Respiratory Failure Denies: Asthma EENT Medical History: Denies: Cataracts, Ears - Hearing aids Neurological Medical History: Denies: Hemorrhagic CVA, Ischemic CVA, Seizures Endocrine Medical History: Reports: Hypothyroidism, Obesity Denies: Diabetes Mellitus Type 1, Diabetes Mellitus Type 2, Hyperthyroidism Renal/ Medical History: Denies: Chronic Kidney Disease, Nephrolithiasis Malignancy Medical History: Reports: None GI Medical History: Reports: Gastroesophageal Reflux Disease Denies: Cirrhosis, Crohn's Disease, Hepatitis, Ulcerative Colitis Musculoskeltal Medical History: Denies: Arthritis, Gout Skin Medical History: Denies: Eczema, Psoriasis Psychiatric Medical History: Reports: Depression Denies: Alcohol Dependency, Substance Abuse, Tobacco Dependency Traumatic Medical History: Reports: None Hematology: Reports: Anemia Denies: Bleeding Tendencies Infectious Medical History: Reports: None Past Surgical History Past Surgical History: Reports: Section, Cholecystectomy, Gastric Bypass Surgery, Herniorrhaphy Social History Information Source: Patient Lives with: Spouse/Significant other Smoking Status: Never Smoker Electronic Cigarette use?: No Frequency of Alcohol Use: None Hx Recreational Drug Use: No Drugs: None Hx Prescription Drug Abuse: No - Advance Directive Resuscitation Status: Full Code Surrogate healthcare decision maker:: Taj Bosch Family History Family History: COPD, DM, Malignancy - Thyroid cancer, Other - Alzheimer's disease. denies: Arthritis, CAD, Hypertension Parental Family History Reviewed: Yes Children Family History Reviewed: No Sibling(s) Family History Reviewed.: Yes Medication/Allergy Home Medications: Albuterol Sulfate [Proair HFA Inhalation Aerosol 8.5 gm MDI] 2 puff IN Q6HP PRN 07/25/17 Aripiprazole [Abilify 15 mg Tablet] 15 mg PO QHS 07/25/17 Calcium Carbonate [Calcium] 1,200 mg PO BID 07/25/17 Cholecalciferol (Vitamin D3) [Vitamin D3 2000 unit Tablet] 2,000 unit PO DAILY 07/25/17 Cyanocobalamin (Vitamin B-12) [Vitamin B-12] 2,500 mcg PO Q2D 07/25/17 Furosemide [Lasix 40 mg Tablet] 40 mg PO BID 07/25/17 Gluc Gamble/Chondro Gamble A/Vit C/Mn [Glucosamine 1,500 Complex Cap] 1,500 mg PO BID 07/25/17 Lansoprazole [Prevacid 30 mg Odt Tablet] 30 mg PO Q6AM 07/25/17 Levothyroxine Sodium [Synthroid 0.075 mg Tablet] 0.075 mg PO Q6AM 07/25/17 Multivitamin [Tab-A-Teetee (Multiple Vitamin) Tablet] 1 tab PO DAILY 07/25/17 Morton-3/Dha/Epa/Fish Oil [Morton-3 Fish Oil Softgel] 1 cap PO TID 07/25/17 Oxycodone HCl/Acetaminophen [Oxycodone-Acetaminophen 5-325] 1 tab PO Q8HP PRN 07/25/17 Potassium Gluconate [Potassium] 600 mg PO DAILY 07/25/17 Pregabalin [Lyrica 75 mg Capsule] 75 mg PO Q8 07/25/17 Propranolol HCl [Inderal 20 mg Tablet] 20 mg PO Q12 07/25/17 Rosuvastatin Calcium [Crestor 20 mg Tablet] 20 mg PO QHS 07/25/17 Tapentadol HCl [Nucynta ER] 150 mg PO Q12 07/25/17 Venlafaxine HCl ER [Effexor Xr 75 mg Cap.sr] 75 mg PO Q8 07/25/17 Vitamin E 400 unit PO DAILY 07/25/17 Zolpidem Tartrate [Ambien 5 mg Tablet] 5 mg PO QHS 07/25/17 Benzonatate [Tessalon Perles 100 mg Capsule] 100 mg PO Q8HP PRN #30 capsule 07/28/17 Methylprednisolone [Medrol Dosepack (4 mg/Tab) 21 Tab/Dosepak] 4 mg PO ASDIR PRN #21 tab.ds.pk 07/28/17 Oseltamivir Phosphate [Tamiflu 75 mg Capsule] 75 mg PO BID #6 capsule 07/28/17 Sulfamethoxazole/Trimethoprim [Bactrim Ds Tablet] 1 each PO BID #10 tablet 07/28/17 Allergies/Adverse Reactions: No Known Allergies Allergy (Verified 02/26/18 14:39) Review of Systems Constitutional: ABSENT: chills, fever(s) Eyes: ABSENT: visual disturbances, other - Eye pain Ears: ABSENT: hearing changes, other - Ear pain Nose, Mouth, and Throat: ABSENT: headache(s), mouth pain, sore throat Cardiovascular: PRESENT: as per HPI, dyspnea on exertion. ABSENT: chest pain, palpitations Respiratory: PRESENT: as per HPI, dyspnea. ABSENT: cough Gastrointestinal: ABSENT: abdominal pain, constipation, diarrhea, nausea, vomiting Genitourinary: ABSENT: dysuria, hematuria Musculoskeletal: PRESENT: other - Chronic pain syndrome. ABSENT: joint swelling, muscle weakness Integumentary: ABSENT: pruritus, rash Neurological: ABSENT: confusion, convulsions, focal weakness, memory loss, syn cope Psychiatric: ABSENT: anxiety, depression Endocrine: ABSENT: cold intolerance, heat intolerance Hematologic/Lymphatic: ABSENT: easy bleeding, easy bruising Allergic/Immunologic: ABSENT: seasonal rhinorrhea Physical Exam Vital Signs: Temp Pulse Resp BP Pulse Ox 100.6 F H 18 118/81 93 04/30/19 02:03 04/30/19 02:00 04/30/19 01:55 04/30/19 02:00 Intake & Output 04/28/19 04/29/19 04/30/19 23:59 23:59 23:59 Intake Total 200 Balance 200 Weight 119.3 kg General appearance: PRESENT: no acute distress, cooperative, morbidly obese Head exam: PRESENT: atraumatic, normocephalic Eye exam: PRESENT: conjunctiva pink. ABSENT: conjunctival injection, scleral icterus Ear exam: PRESENT: normal external ear exam. ABSENT: bleeding, drainage Mouth exam: PRESENT: dry mucosa, neck supple Neck exam: ABSENT: thyromegaly, tracheal deviation Respiratory exam: PRESENT: decreased breath sounds - Mildly decreased breath s ounds throughout all fitzgerald, prolonged expiratory phas - Mildly prolonged expiratory phase present throughout all fitzgerald, rhonchi - Scattered rhonchi throughout all fitzgerald, symmetrical, tachypnea, wheezes - Moderate expiratory wheezes in all fitzgerald Cardiovascular exam: PRESENT: RRR. ABSENT: clicks, gallop, rubs Pulses: PRESENT: normal radial pulses, normal dorsalis pedis pul Vascular exam: PRESENT: normal capillary refill. ABSENT: pallor GI/Abdominal exam: PRESENT: normal bowel sounds, soft Rectal exam: PRESENT: deferred Extremities exam: ABSENT: pedal edema, tenderness Musculoskeletal exam: ABSENT: deformity, [place] [id number] Neurological exam: PRESENT: alert, oriented to person, oriented to place, oriented to time, oriented to situation, CN II-XII grossly intact. ABSENT: motor sensory deficit Psychiatric exam: PRESENT: appropriate affect, normal mood Skin exam: PRESENT: dry, intact, warm. ABSENT: jaundice, rash, urticaria Results Laboratory Results: 04/30/19 00:20 04/30/19 00:20 04/30/19 04/30/19 04/30/19 00:20 00:20 00:20 WBC 7.4 RBC 4.64 Hgb 13.7 Hct 40.7 MCV 88 MCH 29.5 MCHC 33.6 RDW 15.0 H Plt Count 176 Seg Neutrophils % 68.0 Carbonic Acid HCO3/H2CO3 Ratio ABG pH ABG pCO2 ABG pO2 ABG HCO3 ABG O2 Saturation ABG Base Excess FiO2 Sodium 142.2 Potassium 3.8 Chloride 107 Carbon Dioxide 27 Anion Gap 8 BUN 14 Creatinine 0.89 Est GFR ( Amer) > 60 Glucose 84 Lactic Acid 1.1 Calcium 9.0 Total Bilirubin 0.5 AST 43 H Alkaline Phosphatase 81 Total Protein 6.7 Albumin 3.8 04/30/19 02:25 WBC RBC Hgb Hct MCV MCH MCHC RDW Plt Count Seg Neutrophils % Carbonic Acid 1.01 L HCO3/H2CO3 Ratio 19:1 ABG pH 7.39 ABG pCO2 33.4 L ABG pO2 58.5 L ABG HCO3 19.9 L ABG O2 Saturation 90.5 L ABG Base Excess -4.1 FiO2 3L Sodium Potassium Chloride Carbon Dioxide Anion Gap BUN Creatinine Est GFR ( Amer) Glucose Lactic Acid Calcium Total Bilirubin AST Alkaline Phosphatase Total Protein Albumin 04/30/19 04/30/19 00:20 00:20 Creatine Kinase 277 H CK-MB (CK-2) 5.20 H Troponin I < 0.012 NT-Pro-B Natriuret Pep 106 Impressions: Chest X-Ray 04/30/19 00:10 IMPRESSION: 1. Patchy right mid lung airspace opacity may represent atelectasis or developing pneumonic process. Assessment and Plan - Diagnosis (1) Acute pneumonitis Is this a current diagnosis for this admission?: Yes (2) COPD exacerbation Is this a current diagnosis for this admission?: Yes (3) Acute respiratory failure with hypoxemia Is this a current diagnosis for this admission?: Yes (4) Fever Qualifiers: Fever type: unspecified Qualified Code(s): R50.9 - Fever, unspecified Is this a current diagnosis for this admission?: Yes (5) Morbid obesity with BMI of 50.0-59.9, adult Is this a current diagnosis for this admission?: Yes (6) Hyperlipidemia Qualifiers: Hyperlipidemia type: unspecified Qualified Code(s): E78.5 - Hyperlipidemia, unspecified Is this a current diagnosis for this admission?: Yes (7) Chronic pain syndrome Is this a current diagnosis for this admission?: Yes - Plan Summary Summary: Patient will be treated with admission to a medical floor and routine supportive and symptomatic cares. Her exacerbation of COPD will be treated with intravenous Solu-Medrol as well as nebulizer therapy utilizing Xopenex, Atrovent and Pulmicort. Her pneumonitis will be treated with Rocephin and Zithromax administered intravenously. Her hypoxia will be treated with supplemental oxygen as required to maintain an O2 sat in the 90 to 94% range. Her O2 sat will be monitored on a regular basis as well the remainder of her vital signs. She will use Nubain 5 to 10 mg IV every 3 hours on an as-needed basis for pain. Her fever will be treated with Tylenol and/or ibuprofen as required for adequate reduction. Patient will be followed with daily CBCs and metabolic profiles as well as daily clinical evaluations. A clinical associate count consult will be obtained for diet education to aid in weight loss. She will be continued on her usual medications for her chronic medical problems as appropriate. - Time Time Spent with patient: 25-34 minutes Medications reviewed and adjusted accordingly: Yes Anticipated discharge: Home, Home with Homehealth - Inpatient Certification Based on my medical assessment, after consideration of the patient's comorbidities, presenting symptoms, or acuity I expect that the services needed warrant INPATIENT care.: Yes I certify that my determination is in accordance with my understanding of Medicare's requirements for reasonable and necessary INPATIENT services [42 CFR 412.3e].: Yes Medical Necessity: Failure to Improve With Outpatient Therapy, Need Close Monitoring Due to Risk of Patient Decompensation, Need for Nebulizer Therapy and Monitoring of Response, Need for IV Antibiotics, Risk of Complication if Not Cared For in Hospital
[2019-04-30] MEDS: METHYLPREDNISOLONE INJ 40 MG/1 ML SDV IV SCH ×3 (06:52→21:26)
[2019-04-30] MEDS: HEPARIN SOD (PORCINE) 5,000 UNIT/ML 1 ML VIAL SUBCUT SCH ×3 (06:53→21:26)
[2019-04-30] MEDS: IPRATROPIUM BROMIDE 0.02% NEB 0.5 MG/2.5 ML AMPUL NEB SCH ×2 (07:30→16:48)
[2019-04-30] MEDS: LEVALBUTEROL HCL NEB 1.25 MG/3 ML AMPUL NEB SCH ×2 (07:30→16:49)
[2019-04-30] MEDS: BUDESONIDE NEB 0.5 MG/2 ML AMPUL NEB SCH ×2 (07:30→20:49)
[2019-04-30] MEDS ORDERED: ALPRAZOLAM 0.25 MG TABLET PO ONE ×2 (07:47→08:30)
--- NOTE | 2019-04-30 09:52 | EKG REPORT ---
SEVERITY:- ABNORMAL ECG - SINUS TACHYCARDIA VENTRICULAR TRIGEMINY PROBABLE LEFT ATRIAL ABNORMALITY EXTENSIVE ANTERIOR INFARCT, AGE INDETERMINATE : Confirmed by: Helena Cardoza MD 30-Apr-2019 09:51:52
[2019-04-30] MEDS: FAMOTIDINE 20 MG TABLET PO SCH ×2 (10:07→21:25)
[2019-04-30] MEDS: DOCUSATE SODIUM 100 MG CAPSULE PO SCH ×2 (10:07→17:41)
[2019-04-30] MEDS ORDERED: (PENDING PHARMACY ID) (Cyanocobalamin (Vitamin B-12) [Vitamin B12] 2,500 MCG) PO SCH (18:15)
[2019-04-30] MEDS: POTASSIUM CHLORIDE 10 MEQ CAPSULE.ER PO SCH (21:22)
[2019-04-30] MEDS: ZOLPIDEM TARTRATE 5 MG TABLET PO SCH (21:23)
[2019-04-30] MEDS: VENLAFAXINE HCL 75 MG TABLET PO SCH (21:23)
[2019-04-30] MEDS: PREGABALIN 75 MG CAPSULE PO SCH (21:24)
[2019-04-30] MEDS: ARIPIPRAZOLE 5 MG TABLET PO SCH (21:24)
[2019-04-30] MEDS: TRAZODONE HCL 50 MG TABLET PO SCH (21:25)
[2019-04-30] MEDS: AZITHROMYCIN 500 MG in DEXTROSE 5%-WATER 250 ML IV SCH (21:37)
[2019-04-30] MEDS: ATORVASTATIN CALCIUM 40 MG TABLET PO SCH (21:38)
[2019-04-30] MEDS ORDERED: (PENDING PHARMACY ID) (Zolpidem Tartrate [Ambien] 10 MG) PO SCH (22:00)
[2019-04-30] MEDS ORDERED: (PENDING PHARMACY ID) (Aripiprazole [Abilify 15 Mg Tablet] 15 MG) PO SCH (22:00)
[2019-04-30] MEDS ORDERED: (PENDING PHARMACY ID) (Tapentadol Hcl [Nucynta Er] 150 MG) PO SCH (22:00)
[2019-05-01] MEDS: IPRATROPIUM BROMIDE 0.02% NEB 0.5 MG/2.5 ML AMPUL NEB SCH ×3 (00:24→15:42)
[2019-05-01] MEDS: LEVALBUTEROL HCL NEB 1.25 MG/3 ML AMPUL NEB SCH ×3 (00:24→15:42)
[2019-05-01] MEDS: NALBUPHINE HCL INJ 10 MG/1 ML AMPULE IV PRN ×3 (00:40→18:52)
[2019-05-01 05:04] LABS: HEMATOCRIT 37.7 % (36.0-47.0); HEMOGLOBIN 12.7 g/dL (12.0-15.5); MEAN CORPUSCULAR HEMOGLOBIN 29.1 pg (27.0-33.4); MEAN CORPUSCULAR HGB CONC 33.6 g/dL (32.0-36.0); MEAN CORPUSCULAR VOLUME 87 fl (80-97); PLATELET COUNT 162 10^3/uL (150-450); RED BLOOD COUNT 4.35 10^6/uL (3.72-5.28); RED CELL DISTRIBUTION WIDTH 14.6 % (11.5-14.0); WHITE BLOOD COUNT 4.1 10^3/uL (4.0-10.5)
[2019-05-01 05:13] LABS: ANION GAP 8 (5-19); BLOOD UREA NITROGEN 11 mg/dL (7-20); CALCIUM 9.3 mg/dL (8.4-10.2); CARBON DIOXIDE 26 mmol/L (22-30); CHLORIDE 111 mmol/L (98-107); GLUCOSE 141 mg/dL (75-110); POTASSIUM 4.5 mmol/L (3.6-5.0)
[2019-05-01] MEDS: LEVOTHYROXINE SODIUM 0.075 MG TABLET PO SCH (05:47)
[2019-05-01] MEDS: VENLAFAXINE HCL 75 MG TABLET PO SCH ×3 (05:47→22:12)
[2019-05-01] MEDS: METHYLPREDNISOLONE INJ 40 MG/1 ML SDV IV SCH ×3 (05:48→22:12)
[2019-05-01] MEDS: PREGABALIN 75 MG CAPSULE PO SCH ×3 (05:48→22:13)
[2019-05-01] MEDS: HEPARIN SOD (PORCINE) 5,000 UNIT/ML 1 ML VIAL SUBCUT SCH ×3 (05:50→22:12)
[2019-05-01] MEDS: BUDESONIDE NEB 0.5 MG/2 ML AMPUL NEB SCH ×2 (07:38→20:16)
[2019-05-01] MEDS ORDERED: (PENDING PHARMACY ID) (Rosuvastatin Calcium [Crestor 20 Mg Tablet] 20 MG) PO SCH (08:00)
[2019-05-01] MEDS: CEFTRIAXONE 1 GM/D5W RTU 1 GM/50 ML RTUPB IV SCH (09:13)
[2019-05-01] MEDS: POTASSIUM CHLORIDE 10 MEQ CAPSULE.ER PO SCH (09:13)
[2019-05-01] MEDS: DOCUSATE SODIUM 100 MG CAPSULE PO SCH ×2 (09:13→17:31)
[2019-05-01] MEDS: CALCIUM CARBONATE 500 MG TABLET PO SCH ×2 (09:13→17:30)
[2019-05-01] MEDS: MULTIVITAMIN TABLET PO SCH (09:14)
[2019-05-01] MEDS: CHOLECALCIFEROL (D3) 1,000 UNIT (25 MCG) TABLET PO SCH (09:14)
[2019-05-01] MEDS: FAMOTIDINE 20 MG TABLET PO SCH ×2 (09:14→22:13)
[2019-05-01] MEDS: FUROSEMIDE 40 MG TABLET PO SCH ×2 (09:14→17:30)
--- NOTE | 2019-05-01 09:37 | PDOC PROGRESS REPORT ---
Subjective Progress Note for:: 05/01/19 Subjective:: PAULINE BOSCH is a 69 year old female who presented to the emergency room with acute dyspnea. She admits developing increasing dyspnea earlier in the day (04/29/2019) which progressively worsened to become severe last evening and resulted in her summoning EMS to bring her to the hospital. Her dyspnea was made worse by activity and exertion. She admits having been treated for a suspected left lower lobe pneumonia by her primary care provider for the last six days. Her treatment had consisted of albuterol nebulizer treatments, oral prednisone and Augmentin, but she feels that she has not improved with treatment this time. She denied other accompanying or associated signs and symptoms. She admits prior similar episodes with exacerbations of her COPD and pneumonia with an most recent being February 12 of this year. She has not identified any additional aggravating or ameliorating factors for her dyspnea. Upon EMS arrival she was treated with a DuoNeb nebulizer and given Solu-Medrol 125 mg IV push. She was brought to the emergency room where she was found to have an O2 sat in the 80s and a fever of 101.5 F. She 1 Received several more breathing treatments and was provided with supplemental oxygen and showed significant improvement. She was subsequently admitted to the medical floor for further evaluation and treatment. 05/01/2019. No acute events overnight. Patient comfortably resting in bed in no apparent distress. She is feeling much better. Denies any fever, chills, nausea, vomiting, diarrhea, constipation or any urinary symptoms. Patient is still on 3 L nasal cannula. Reason For Visit: ACUTE EXACERBATION OF COPD,ACUTE RESPIRATORY Physical Exam Vital Signs: Temp Pulse Resp BP Pulse Ox 97.8 F 64 16 122/82 94 04/30/19 23:39 05/01/19 00:20 05/01/19 00:20 04/30/19 23:39 05/01/19 00:20 Intake & Output 04/30/19 05/01/19 05/02/19 06:59 06:59 06:59 Intake Total 1200 1460 Balance 1200 1460 Weight 119.3 kg 123 kg General appearance: PRESENT: morbidly obese Head exam: PRESENT: atraumatic, normocephalic Respiratory exam: PRESENT: decreased breath sounds, wheezes - Expiratory wheezes. ABSENT: rales, rhonchi Cardiovascular exam: PRESENT: RRR. ABSENT: diastolic murmur, rubs, systolic murmur Neurological exam: PRESENT: alert, awake, oriented to person, oriented to place, oriented to time, oriented to situation Results Laboratory Results: 05/01/19 04:01 05/01/19 04:01 05/01/19 05/01/19 04:01 04:01 WBC 4.1 RBC 4.35 Hgb 12.7 Hct 37.7 MCV 87 MCH 29.1 MCHC 33.6 RDW 14.6 H Plt Count 162 Sodium 145.1 H Potassium 4.5 Chloride 111 H Carbon Dioxide 26 Anion Gap 8 BUN 11 Creatinine 0.51 L Est GFR ( Amer) > 60 Glucose 141 H Calcium 9.3 04/30/19 04/30/19 00:20 00:20 Creatine Kinase 277 H CK-MB (CK-2) 5.20 H Troponin I < 0.012 NT-Pro-B Natriuret Pep 106 Impressions: Chest X-Ray 04/30/19 00:10 IMPRESSION: 1. Patchy right mid lung airspace opacity may represent atelectasis or developing pneumonic process. Assessment and Plan - Diagnosis (1) Acute respiratory failure with hypoxemia Is this a current diagnosis for this admission?: Yes Plan: Significant improvement since admission but is still dependent on supplemental O2. SPO2 WNL on 3 L nasal cannula. Not on home O2. Due to COPD exacerbation complicated by underlying pneumonia. 04/30/2019 ABG: pH 7.39, PCO2 33.4, PO2 58.4, O2 saturation 90.3, FiO2 3 L NC. Day 3 IV antibiotics. Day 2 IV ceftriaxone. Day 2 IV azithromycin. Received 1 dose of Zosyn on admission. Cultures no growth so far. Continue empiric IV antibiotics, IV steroids, duo nebs, flutter valve, incentive spirometry, PRN BiPAP, supplemental oxygen, pulmonary toileting. Evaluate for need for home oxygen. Possible discharge home tomorrow. (2) COPD exacerbation Is this a current diagnosis for this admission?: Yes Plan: Not on home O2. Plan as per #1. (3) Pneumonia Qualifiers: Pneumonia type: due to unspecified organism Laterality: right Lung location: middle lobe of lung Qualified Code(s): J18.9 - Pneumonia, unspecified organism Is this a current diagnosis for this admission?: Yes Plan: Partially treated community-acquired pneumonia likely due to gram-positives including strep pneumo. Partially treated as outpatient by PCP with Augmentin. Presented with fever and acute hypoxemic respiratory failure. WBC WNL on admission. Afebrile, WBC WNL, cultures negative. Plan as per #1. (4) Depression Is this a current diagnosis for this admission?: Yes Plan: Denies any history of suicidal or homicidal ideation. Home meds are Effexor 75 mg p.o. every 8, trazodone 50 mg nightly. Restart home meds. Outpatient PCP and psychiatry follow-up. (5) Chronic pain syndrome Is this a current diagnosis for this admission?: Yes Plan: Home meds are Tucker 103 25 every 8 as needed, tapentadol ER 150 every 12. Start home meds. Outpatient PCP follow-up. (6) Morbid obesity with BMI of 60.0-69.9, adult Is this a current diagnosis for this admission?: Yes Plan: Status post gastric bypass. Diet and lifestyle modification recommended. (7) Hypothyroidism Is this a current diagnosis for this admission?: Yes Plan: Restart home meds. Outpatient PCP follow-up.
--- NOTE | 2019-05-01 09:56 | PDOC CONSULTATION ---
Consultation Consult Date: 04/30/19 Attending physician:: DONNIE STEPHENS Provider Consulted: ISAC REESE Consult reason:: pna History of Present Illness Admission Date/PCP: 04/30/19 03:44 ISAC REESE MD History of Present Illness: PAULINE BOSCH is a 69 year old female emergency room with increasing shortness of breath and progressing over the last several days. 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 She denies snoring restless sleep, unrestful sleep or excessive daytime somnolence Past Medical History Cardiac Medical History: Reports: Congestive Heart Failure, Hyperlipidema Denies: Atrial Fibrillation, Coronary Artery Disease, DVT, Myocardial Infarction, Hypertension, Peripheral Vascular Disease, Pulmonary Embolism Pulmonary Medical History: Reports: Bronchitis, Chronic Obstructive Pulmonary Disease (COPD), Pneumonia, Respiratory Failure Denies: Asthma EENT Medical History: Denies: Cataracts, Ears - Hearing aids Neurological Medical History: Denies: Hemorrhagic CVA, Ischemic CVA, Seizures Endocrine Medical History: Reports: Hypothyroidism, Obesity Denies: Diabetes Mellitus Type 1, Diabetes Mellitus Type 2, Hyperthyroidism Renal/ Medical History: Denies: Chronic Kidney Disease, Nephrolithiasis Malignancy Medical History: Reports: None GI Medical History: Reports: Gastroesophageal Reflux Disease Denies: Cirrhosis, Crohn's Disease, Hepatitis, Ulcerative Colitis Musculoskeltal Medical History: Denies: Arthritis, Gout Skin Medical History: Denies: Eczema, Psoriasis Psychiatric Medical History: Reports: Depression Denies: Alcohol Dependency, Substance Abuse, Tobacco Dependency Traumatic Medical History: Reports: None Hematology: Reports: Anemia Denies: Bleeding Tendencies Infectious Medical History: Reports: None Past Surgical History Past Surgical History: Reports: Section, Cholecystectomy, Gastric Bypass Surgery, Herniorrhaphy Social History Information Source: Patient, [facility] Records Lives with: Spouse/Significant other Smoking Status: Never Smoker Frequency of Alcohol Use: None Hx Recreational Drug Use: No Drugs: None Hx Prescription Drug Abuse: No Do you have pets?: Yes Have you had any respiratory illnesses as a child?: No Have you been exposed to any sick contacts recently?: No Have you had any recent respiratory illnesses?: No Have you travelled outside of [place] in the past 12 months?: No - Advance Directive Resuscitation Status: Full Code Family History Family History: COPD, DM, Malignancy - Thyroid cancer, Other - Alzheimer's disease. denies: Arthritis, CAD, Hypertension Parental Family History Reviewed: Yes Children Family History Reviewed: Yes Sibling(s) Family History Reviewed.: Yes Medication/Allergy Home Medications: Aripiprazole [Abilify 15 mg Tablet] 15 mg PO QHS 04/30/19 Calcium Carbonate [Calcium] 1,200 mg PO BID 04/30/19 Cholecalciferol (Vitamin D3) [Vitamin D3] 2,000 unit PO DAILY 04/30/19 Cyanocobalamin (Vitamin B-12) [Vitamin B12] 2,500 mcg PO Q2D 04/30/19 Eszopiclone [Lunesta] 3 mg PO QHS 04/30/19 Furosemide [Lasix 40 mg Tablet] 40 mg PO BID 04/30/19 Glucosamine Sulfate Dipot Chlr [Glucosamine] 1,500 mg PO BID 04/30/19 Hydrocodone/Acetaminophen [Ava 10-325 mg Tablet] 1 tab PO Q8HP PRN 04/30/19 Lansoprazole [Prevacid] 30 mg PO DAILY 04/30/19 Levothyroxine Sodium [Synthroid 0.075 mg Tablet] 0.075 mg PO Q6AM 04/30/19 Multivitamin [Tab-A-[place]et[place] (Multiple Vitamin) Tablet] 1 tab PO DAILY 04/30/19 [place]-3 Fatty Acids/Fish Oil [[place] 3 Fish Oil Softgel] 1,360 mg PO TID 04/30/19 Potassium 595mg 595 mg PO DAILY 04/30/19 Pregabalin [Lyrica 75 mg Capsule] 75 mg PO Q8 04/30/19 Rosuvastatin Calcium [Crestor 20 mg Tablet] 20 mg PO QAM 04/30/19 Tapentadol HCl [Nucynta ER] 150 mg PO Q12 04/30/19 Trazodone HCl [Desyrel 50 mg Tablet] 100 mg PO QHS 04/30/19 Venlafaxine HCl [Effexor 75 mg Tablet] 75 mg PO Q8 04/30/19 Vitamin E 400 unit PO DAILY 04/30/19 Zolpidem Tartrate [Ambien] 10 mg PO QHS 04/30/19 Allergies/Adverse Reactions: No Known Allergies Allergy (Verified 02/26/18 14:39) Physical Exam Vital Signs: Temp Pulse Resp BP Pulse Ox 98.5 F 78 17 135/75 H 96 04/30/19 06:51 04/30/19 07:30 04/30/19 09:01 04/30/19 09:01 04/30/19 09:01 Intake & Output 04/29/19 04/30/19 05/01/19 06:59 06:59 06:59 Intake Total 1200 50 Balance 1200 50 Weight 119.3 kg General appearance: PRESENT: no acute distress, cooperative, disheveled, morbidly obese Head exam: PRESENT: atraumatic, normocephalic Eye exam: PRESENT: conjunctiva pale, EOMI. ABSENT: nystagmus, periorbital swelling, scleral icterus Mouth exam: PRESENT: moist, tongue midline Neck exam: ABSENT: carotid bruit, full ROM, JVD, lymphadenopathy, meningismus, tenderness, thyromegaly, tracheal deviation, tracheostomy, other Respiratory exam: PRESENT: decreased breath sounds, prolonged expiratory phas, rales, rhonchi, symmetrical, unlabored. ABSENT: retraction, stridor, tachypnea Cardiovascular exam: PRESENT: RRR, +S1, +S2. ABSENT: tachycardia Pulses: PRESENT: normal radial pulses GI/Abdominal exam: PRESENT: soft. ABSENT: distended, guarding, mass, rebound Extremities exam: ABSENT: calf tenderness, clubbing, joint swelling Musculoskeletal exam: ABSENT: deformity, dislocation Neurological exam: PRESENT: alert, awake Psychiatric exam: PRESENT: appropriate affect Skin exam: PRESENT: dry, warm Results Laboratory Results: 04/30/19 00:20 04/30/19 00:20 04/30/19 04/30/19 04/30/19 00:20 00:20 00:20 WBC 7.4 RBC 4.64 Hgb 13.7 Hct 40.7 MCV 88 MCH 29.5 MCHC 33.6 RDW 15.0 H Plt Count 176 Seg Neutrophils % 68.0 Carbonic Acid HCO3/H2CO3 Ratio ABG pH ABG pCO2 ABG pO2 ABG HCO3 ABG O2 Saturation ABG Base Excess FiO2 Sodium 142.2 Potassium 3.8 Chloride 107 Carbon Dioxide 27 Anion Gap 8 BUN 14 Creatinine 0.89 Est GFR ( Amer) > 60 Glucose 84 Lactic Acid 1.1 Calcium 9.0 Total Bilirubin 0.5 AST 43 H Alkaline Phosphatase 81 Total Protein 6.7 Albumin 3.8 Urine Color Urine Appearance Urine pH Ur Specific [place] Urine Protein Urine Glucose (UA) Urine Ketones Urine Blood Urine Nitrite Ur Leukocyte Esterase Urine WBC (Auto) Urine RBC (Auto) 04/30/19 04/30/19 02:25 04:50 WBC RBC Hgb Hct MCV MCH MCHC RDW Plt Count Seg Neutrophils % Carbonic Acid 1.01 L HCO3/H2CO3 Ratio 19:1 ABG pH 7.39 ABG pCO2 33.4 L ABG pO2 58.5 L ABG HCO3 19.9 L ABG O2 Saturation 90.5 L ABG Base Excess -4.1 FiO2 3L Sodium Potassium Chloride Carbon Dioxide Anion Gap BUN Creatinine Est GFR ( Amer) Glucose Lactic Acid Calcium Total Bilirubin AST Alkaline Phosphatase Total Protein Albumin Urine Color YELLOW Urine Appearance CLEAR Urine pH 5.0 Ur Specific [place] 1.010 Urine Protein NEGATIVE Urine Glucose (UA) NEGATIVE Urine Ketones NEGATIVE Urine Blood SMALL H Urine Nitrite NEGATIVE Ur Leukocyte Esterase NEGATIVE Urine WBC (Auto) 1 Urine RBC (Auto) 0 04/30/19 04/30/19 00:20 00:20 Creatine Kinase 277 H CK-MB (CK-2) 5.20 H Troponin I < 0.012 NT-Pro-B Natriuret Pep 106 Impressions: Chest X-Ray 04/30/19 00:10 IMPRESSION: 1. Patchy right mid lung airspace opacity may represent atelectasis or developing pneumonic process. Assessment & Plan - Diagnosis (1) Acute pneumonitis Is this a current diagnosis for this admission?: Yes Plan: No positive cultures Continue current antibiotic therapy patient rapidly improving (2) COPD exacerbation Is this a current diagnosis for this admission?: Yes Plan: Continue current bronchodilator therapy (3) Morbid obesity with BMI of 50.0-59.9, adult Is this a current diagnosis for this admission?: Yes Plan: Consider nutritional consult - Time Time Spent: 30 to 50 Minutes
[2019-05-01] MEDS ORDERED: (PENDING PHARMACY ID) (Vitamin E [Vitamin E] 400 UNIT) PO SCH (10:00)
[2019-05-01] MEDS ORDERED: (PENDING PHARMACY ID) (Glucosamine Sulfate Dipot Chlr [Glucosamine] 1,500 MG) PO SCH (10:00)
[2019-05-01] MEDS ORDERED: (PENDING PHARMACY ID) (Cholecalciferol (Vitamin D3) [Vitamin D3] 2,000 UNIT) PO SCH (10:00)
[2019-05-01] MEDS ORDERED: (PENDING PHARMACY ID) (Lansoprazole [Prevacid] 30 MG) PO SCH (10:00)
[2019-05-01] MEDS ORDERED: POTASSIUM 595 MG PO SCH (10:00)
[2019-05-01] MEDS ORDERED: [UNRECOGNIZED DRUG - OTHER] PO SCH (10:00)
[2019-05-01] MEDS ORDERED: OMEGA 3 FATTY ACIDS PO SCH (10:00)
[2019-05-01] MEDS ORDERED: CYANOCOBALAMIN (VITAMIN B-12) 1,000 MCG TABLET PO SCH (10:00)
[2019-05-01] MEDS ORDERED: (PENDING PHARMACY ID) (Calcium Carbonate [Calcium] 1,200 MG) PO SCH (10:00)
[2019-05-01] MEDS: ARIPIPRAZOLE 5 MG TABLET PO SCH (22:12)
[2019-05-01] MEDS: HYDROCODONE/ACETAMINOPHEN 10-325 MG TABLET PO PRN (22:12)
[2019-05-01] MEDS: TRAZODONE HCL 50 MG TABLET PO SCH (22:13)
[2019-05-01] MEDS: ZOLPIDEM TARTRATE 5 MG TABLET PO SCH (22:13)
[2019-05-01] MEDS: ATORVASTATIN CALCIUM 40 MG TABLET PO SCH (22:13)
[2019-05-01] MEDS: AZITHROMYCIN 500 MG in DEXTROSE 5%-WATER 250 ML IV SCH (22:17)
[2019-05-02 00:03] VITALS: BP 126/61
[2019-05-02] MEDS: IPRATROPIUM BROMIDE 0.02% NEB 0.5 MG/2.5 ML AMPUL NEB SCH ×2 (00:27→08:03)
[2019-05-02] MEDS: LEVALBUTEROL HCL NEB 1.25 MG/3 ML AMPUL NEB SCH ×2 (00:27→08:03)
[2019-05-02] MEDS: HEPARIN SOD (PORCINE) 5,000 UNIT/ML 1 ML VIAL SUBCUT SCH (05:05)
[2019-05-02] MEDS: HYDROCODONE/ACETAMINOPHEN 10-325 MG TABLET PO PRN (05:51)
[2019-05-02] MEDS: VENLAFAXINE HCL 75 MG TABLET PO SCH (05:52)
[2019-05-02] MEDS: PREGABALIN 75 MG CAPSULE PO SCH (05:52)
[2019-05-02] MEDS: LEVOTHYROXINE SODIUM 0.075 MG TABLET PO SCH (05:52)
[2019-05-02] MEDS: BUDESONIDE NEB 0.5 MG/2 ML AMPUL NEB SCH (08:03)
[2019-05-02] MEDS: CEFTRIAXONE 1 GM/D5W RTU 1 GM/50 ML RTUPB IV SCH (09:27)
[2019-05-02] MEDS: CHOLECALCIFEROL (D3) 1,000 UNIT (25 MCG) TABLET PO SCH (09:30)
[2019-05-02] MEDS: MULTIVITAMIN TABLET PO SCH (09:30)
[2019-05-02] MEDS: FUROSEMIDE 40 MG TABLET PO SCH (09:31)
[2019-05-02] MEDS: DOCUSATE SODIUM 100 MG CAPSULE PO SCH (09:31)
[2019-05-02] MEDS: POTASSIUM CHLORIDE 10 MEQ CAPSULE.ER PO SCH (09:32)
[2019-05-02] MEDS: CALCIUM CARBONATE 500 MG TABLET PO SCH (09:32)
[2019-05-02] MEDS: FAMOTIDINE 20 MG TABLET PO SCH (09:35)
--- NOTE | 2019-05-03 16:06 | PDOC DISCHARGE SUMMARY ---
Impression - Admit/DC Date/PCP Admission Date/Primary Care Provider: 04/30/19 03:44 ISAC REESE MD Discharge Date: 05/02/19 - Discharge Diagnosis (1) Acute respiratory failure with hypoxemia Is this a current diagnosis for this admission?: Yes (2) COPD exacerbation Is this a current diagnosis for this admission?: Yes (3) Pneumonia Is this a current diagnosis for this admission?: Yes (4) Depression Is this a current diagnosis for this admission?: Yes (5) Chronic pain syndrome Is this a current diagnosis for this admission?: Yes (6) Morbid obesity with BMI of 60.0-69.9, adult Is this a current diagnosis for this admission?: Yes (7) Hypothyroidism Is this a current diagnosis for this admission?: Yes - Additional Information Resuscitation Status: Full Code Discharge Diet: As Tolerated Discharge Activity: Activity As Tolerated Referrals: ISAC REESE MD [Primary Care Provider] - Follow up as needed Prescriptions: Levofloxacin [Levaquin 500 mg Tablet] 500 mg PO DAILY 4 Days #4 tablet Albuterol Sulfate [Proair Hfa Inhalation Aerosol 8.5 gm Mdi] 1 puff IH Q6 30 Days #1 mdi Tiotropium [place] [Spiriva Respimat] 4 gm IH DAILY 30 Days #1 mist.inhal Home Medications: Aripiprazole [Abilify 15 mg Tablet] 15 mg PO QHS 04/30/19 Calcium Carbonate [Calcium] 1,200 mg PO BID 04/30/19 Cholecalciferol (Vitamin D3) [Vitamin D3] 2,000 unit PO DAILY 04/30/19 Cyanocobalamin (Vitamin B-12) [Vitamin B12] 2,500 mcg PO Q2D 04/30/19 Eszopiclone [Lunesta] 3 mg PO QHS 04/30/19 Furosemide [Lasix 40 mg Tablet] 40 mg PO BID 04/30/19 Glucosamine Sulfate Dipot Chlr [Glucosamine] 1,500 mg PO BID 04/30/19 Hydrocodone/Acetaminophen [[place] 10-325 mg Tablet] 1 tab PO Q8HP PRN 04/30/19 Lansoprazole [Prevacid] 30 mg PO DAILY 04/30/19 Levothyroxine Sodium [Synthroid 0.075 mg Tablet] 0.075 mg PO Q6AM 04/30/19 Multivitamin [Tab-A-Teetee (Multiple Vitamin) Tablet] 1 tab PO DAILY 04/30/19 [place]-3 Fatty Acids/Fish Oil [[place] 3 Fish Oil Softgel] 1,360 mg PO TID 04/30/19 Potassium 595mg 595 mg PO DAILY 04/30/19 Pregabalin [Lyrica 75 mg Capsule] 75 mg PO Q8 04/30/19 Rosuvastatin Calcium [Crestor 20 mg Tablet] 20 mg PO QAM 04/30/19 Tapentadol HCl [Nucynta ER] 150 mg PO Q12 04/30/19 Trazodone HCl [Desyrel 50 mg Tablet] 100 mg PO QHS 04/30/19 Venlafaxine HCl [Effexor 75 mg Tablet] 75 mg PO Q8 04/30/19 Vitamin E 400 unit PO DAILY 04/30/19 Zolpidem Tartrate [Ambien] 10 mg PO QHS 04/30/19 Albuterol Sulfate [Proair Hfa Inhalation Aerosol 8.5 gm Mdi] 1 puff IH Q6 30 Days #1 mdi 05/02/19 Levofloxacin [Levaquin 500 mg Tablet] 500 mg PO DAILY 4 Days #4 tablet 05/02/19 Tiotropium [place] [Spiriva Respimat] 4 gm IH DAILY 30 Days #1 mist.inhal 05/02/19 History of Present Illiness History of Present Illness: PAULINE BOSCH is a 69 year old female who presented to the emergency room with acute dyspnea. She admits developing increasing dyspnea earlier in the day (04/29/2019) which progressively worsened to become severe last evening and resulted in her summoning EMS to bring her to the hospital. Her dyspnea was made worse by activity and exertion. She admits having been treated for a suspected left lower lobe pneumonia by her primary care provider for the last six days. Her treatment had consisted of albuterol nebulizer treatments, oral prednisone and Augmentin, but she feels that she has not improved with treatment this time. She denied other accompanying or associated signs and symptoms. She admits prior similar episodes with exacerbations of her COPD and pneumonia with an most recent being February 12 of this year. She has not identified any additional aggravating or ameliorating factors for her dyspnea. Upon EMS arrival she was treated with a DuoNeb nebulizer and given Solu-Medrol 125 mg IV push. She was brought to the emergency room where she was found to have an O2 sat in the 80s and a fever of 101.5 F. She 1 Received several more breathing treatments and was provided with supplemental oxygen and showed significant improvement. She was subsequently admitted to the medical floor for further evaluation and treatment. Hospital Course Hospital Course: (1) Acute respiratory failure with hypoxemia Resolved. SPO2 WNL on RA. Not on home O2. Due to COPD exacerbation complicated by underlying pneumonia. 04/30/2019 ABG: pH 7.39, PCO2 33.4, PO2 58.4, O2 saturation 90.3, FiO2 3 L NC. Received 4 days of IV antibiotics. Received 4 days of IV ceftriaxone. Received 4 days of IV azithromycin. Was discharged on levofloxacin 5 mg p.o. daily for another 3 days. Culture stayed negative. Was a started on empiric IV antibiotics, IV steroids, duo nebs, flutter valve, incentive spirometry, PRN BiPAP, supplemental oxygen, pulmonary toileting. (2) COPD exacerbation Not on home O2. Plan as per #1. (3) Pneumonia Partially treated community-acquired pneumonia likely due to gram-positives including strep pneumo. Partially treated as outpatient by PCP with Augmentin. Presented with fever and acute hypoxemic respiratory failure. WBC WNL on admission. Afebrile, WBC WNL, cultures negative. Plan as per #1. (4) Depression Denied any history of suicidal or homicidal ideation. Home meds are Effexor 75 mg p.o. every 8, trazodone 50 mg nightly. Restarted on home meds. Asked to follow-up with PCP. Restart home meds upon discharge. (5) Chronic pain syndrome Home meds are [place] 103 25 every 8 as needed, tapentadol ER 150 every 12. Started on home meds. (6) Morbid obesity with BMI of 60.0-69.9, adult Status post gastric bypass. Diet and lifestyle modification recommended. (7) Hypothyroidism Started on home meds. Physical Exam Vital Signs: Temp Pulse Resp BP Pulse Ox 98.1 F 75 20 126/61 H 94 05/02/19 10:21 05/02/19 10:21 05/02/19 10:21 05/02/19 10:21 05/02/19 10:21 Intake & Output 05/02/19 05/03/19 05/04/19 06:59 06:59 06:59 Intake Total 1738 Balance 1738 Weight 125.8 kg General appearance: PRESENT: morbidly obese Respiratory exam: PRESENT: clear to auscultation neda. ABSENT: rales, rhonchi, wheezes Cardiovascular exam: PRESENT: RRR. ABSENT: diastolic murmur, rubs, systolic murmur GI/Abdominal exam: PRESENT: normal bowel sounds, soft. ABSENT: distended, guarding, mass, organolmegaly, rebound, tenderness Neurological exam: PRESENT: alert, awake, oriented to person, oriented to place, oriented to time, oriented to situation, CN II-XII grossly intact. ABSENT: motor sensory deficit Results Laboratory Results: WBC 4.1 10^3/uL (4.0-10.5) 05/01/19 04:01 RBC 4.35 10^6/uL (3.72-5.28) 05/01/19 04:01 Hgb 12.7 g/dL (12.0-15.5) 05/01/19 04:01 Hct 37.7 % (36.0-47.0) 05/01/19 04:01 MCV 87 fl (80-97) 05/01/19 04:01 MCH 29.1 pg (27.0-33.4) 05/01/19 04:01 MCHC 33.6 g/dL (32.0-36.0) 05/01/19 04:01 RDW 14.6 % (11.5-14.0) H 05/01/19 04:01 Plt Count 162 10^3/uL (150-450) 05/01/19 04:01 Lymph % (Auto) 21.6 % (13-45) 04/30/19 00:20 [place] % (Auto) 8.3 % (3-13) 04/30/19 00:20 Eos % (Auto) 1.5 % (0-6) 04/30/19 00:20 Baso % (Auto) 0.6 % (0-2) 04/30/19 00:20 Absolute Neuts (auto) 5.0 10^3/uL (1.7-8.2) 04/30/19 00:20 Absolute Lymphs (auto) 1.6 10^3/uL (0.5-4.7) 04/30/19 00:20 Absolute Monos (auto) 0.6 10^3/uL (0.1-1.4) 04/30/19 00:20 Absolute Eos (auto) 0.1 10^3/uL (0.0-0.6) 04/30/19 00:20 Absolute Basos (auto) 0.0 10^3/uL (0.0-0.2) 04/30/19 00:20 Seg Neutrophils % 68.0 % (42-78) 04/30/19 00:20 PT 12.8 SEC (11.4-15.4) 04/30/19 00:20 INR 0.96 04/30/19 00:20 Carbonic Acid 1.01 mmol/L (1.05-1.35) L 04/30/19 02:25 HCO3/H2CO3 Ratio 19:1 04/30/19 02:25 ABG pH 7.39 (7.35-7.45) 04/30/19 02:25 ABG pCO2 33.4 mmHg (35-45) L 04/30/19 02:25 ABG pO2 58.5 mmHg (80-100) L 04/30/19 02:25 ABG HCO3 19.9 mmol/L (20-24) L 04/30/19 02:25 ABG Total CO2 20.9 mmol/L (21-25) L 04/30/19 02:25 ABG O2 Saturation 90.5 % (94-98) L 04/30/19 02:25 ABG Base Excess -4.1 mmol/L 04/30/19 02:25 FiO2 3L 04/30/19 02:25 Sodium 145.1 mmol/L (137-145) H 05/01/19 04:01 Potassium 4.5 mmol/L (3.6-5.0) 05/01/19 04:01 Chloride 111 mmol/L (98-107) H 05/01/19 04:01 Carbon Dioxide 26 mmol/L (22-30) 05/01/19 04:01 Anion Gap 8 (5-19) 05/01/19 04:01 BUN 11 mg/dL (7-20) 05/01/19 04:01 Creatinine 0.51 mg/dL (0.52-1.25) L 05/01/19 04:01 Est GFR ( Amer) > 60 (>60) 05/01/19 04:01 Est GFR (MDRD) Non-Af > 60 (>60) 05/01/19 04:01 Glucose 141 mg/dL (75-110) H 05/01/19 04:01 Lactic Acid 1.1 mmol/L (0.7-2.1) 04/30/19 00:20 Calcium 9.3 mg/dL (8.4-10.2) 05/01/19 04:01 Total Bilirubin 0.5 mg/dL (0.2-1.3) 04/30/19 00:20 Direct Bilirubin 0.3 mg/dL (0.0-0.4) 04/30/19 00:20 Neonat Total Bilirubin Not Reportable 04/30/19 00:20 Neonat Direct Bilirubin Not Reportable 04/30/19 00:20 Neonat Indirect Bili Not Reportable 04/30/19 00:20 AST 43 U/L (14-36) H 04/30/19 00:20 ALT 19 U/L (<35) 04/30/19 00:20 Alkaline Phosphatase 81 U/L (38-126) 04/30/19 00:20 Creatine Kinase 277 U/L (30-135) H 04/30/19 00:20 CK-MB (CK-2) 5.20 ng/mL (<4.55) H 04/30/19 00:20 Troponin I < 0.012 ng/mL 04/30/19 00:20 NT-Pro-B Natriuret Pep 106 pg/mL (<125) 04/30/19 00:20 Total Protein 6.7 g/dL (6.3-8.2) 04/30/19 00:20 Albumin 3.8 g/dL (3.5-5.0) 04/30/19 00:20 Urine Color YELLOW 04/30/19 04:50 Urine Appearance CLEAR 04/30/19 04:50 Urine pH 5.0 (5.0-9.0) 04/30/19 04:50 Ur Specific [place] 1.010 04/30/19 04:50 Urine Protein NEGATIVE mg/dL (NEGATIVE) 04/30/19 04:50 Urine Glucose (UA) NEGATIVE mg/dL (NEGATIVE) 04/30/19 04:50 Urine Ketones NEGATIVE mg/dL (NEGATIVE) 04/30/19 04:50 Urine Blood SMALL (NEGATIVE) H 04/30/19 04:50 Urine Nitrite NEGATIVE (NEGATIVE) 04/30/19 04:50 Urine Bilirubin NEGATIVE (NEGATIVE) 04/30/19 04:50 Urine Urobilinogen NEGATIVE mg/dL (<2.0) 04/30/19 04:50 Ur Leukocyte Esterase NEGATIVE (NEGATIVE) 04/30/19 04:50 Urine WBC (Auto) 1 /HPF 04/30/19 04:50 Urine RBC (Auto) 0 /HPF 04/30/19 04:50 Urine Bacteria (Auto) TRACE /HPF 04/30/19 04:50 Urine Mucus (Auto) RARE /LPF 04/30/19 04:50 Urine Ascorbic Acid NEGATIVE (NEGATIVE) 04/30/19 04:50 04/30/19 00:20 CK-MB (CK-2) 5.20 H Troponin I < 0.012 NT-Pro-B Natriuret Pep 106 Impressions: Chest X-Ray 04/30/19 00:10 IMPRESSION: 1. Patchy right mid lung airspace opacity may represent atelectasis or developing pneumonic process. Stroke Is this a Stroke Patient?: No Acute Heart Failure - Is this a Heart Failure Patient?: No
== END 2019-05-02 10:53 | disposition home or self-care (01) | DRG 189 ==
LOC: ER 00:07 → EH 03:44 → 5 15:51
PROVIDERS: ADMIT Emergency Medicine; ATTEND Emergency Medicine
DX: J96.01 Acute respiratory failure with hypoxia (principal); J18.9 Pneumonia, unspecified organism; J44.1 Chronic obstructive pulmonary disease with (acute) exacerbation; Z68.43 Body mass index [BMI] 50.0-59.9, adult; E03.9 Hypothyroidism, unspecified; E78.5 Hyperlipidemia, unspecified; G89.4 Chronic pain syndrome; K21.9 Gastro-esophageal reflux disease without esophagitis; E66.01 Morbid (severe) obesity due to excess calories; I25.2 Old myocardial infarction; Z98.84 Bariatric surgery status; Z79.51 Long term (current) use of inhaled steroids; Z79.52 Long term (current) use of systemic steroids; Z79.899 Other long term (current) drug therapy
CPT/HCPCS: 36415; 71045; 80048; 80053; 81001; 82550; 82553; 82803; 83605; 83880; 84484; 85025; 85027; 85610; 87040; 93005; 93010; 94660; 96361; 96365; 96367; 99285; J0456; J0696; J1644; J2300; J2543; J2920; J3475; J3490; J7030; J7060; J7614; J7620

== ENCOUNTER 2019-08-20 13:56 | Inpatient (IN) | payer MEDICARE, OTHER ==
[2019-08-20 14:48] LABS: ABSOLUTE EOSINOPHILS # (AUTO) 0.1 10^3/uL (0.0-0.6); ABSOLUTE LYMPHOCYTES (AUTO) 1.7 10^3/uL (0.5-4.7); ABSOLUTE MONOCYTES (AUTO) 0.4 10^3/uL (0.1-1.4); ABSOLUTE NEUT (AUTO) 4.9 10^3/uL (1.7-8.2); BASOPHILS % (AUTO) 0.1 % (0-2); EOSINOPHILS % (AUTO) 0.7 % (0-6); HEMATOCRIT 43.3 % (36.0-47.0); HEMOGLOBIN 14.9 g/dL (12.0-15.5); LYMPHOCYTES % (AUTO) 23.5 % (13-45); MEAN CORPUSCULAR HEMOGLOBIN 29.6 pg (27.0-33.4); MEAN CORPUSCULAR HGB CONC 34.4 g/dL (32.0-36.0); MEAN CORPUSCULAR VOLUME 86 fl (80-97); MONOCYTES % (AUTO) 6.2 % (3-13); PLATELET COUNT 199 10^3/uL (150-450); RED BLOOD COUNT 5.02 10^6/uL (3.72-5.28); RED CELL DISTRIBUTION WIDTH 15.1 % (11.5-14.0); SEGMENTED NEUTROPHILS % (AUTO) 69.5 % (42-78); TOTAL CELLS COUNTED % (AUTO) 100 %; WHITE BLOOD COUNT 7.1 10^3/uL (4.0-10.5)
--- NOTE | 2019-08-20 15:04 | RADIOLOGY REPORT (SQ) ---
EXAM DESCRIPTION: CHEST SINGLE VIEW COMPLETED DATE/TIME: 08/20/2019 2:44 pm REASON FOR STUDY: shortness of breath COMPARISON: CT chest 01/14/2019 Chest films 04/30/2019, 02/26/2018 EXAM PARAMETERS: NUMBER OF VIEWS: One view. TECHNIQUE: Single frontal radiographic view of the chest acquired. RADIATION DOSE: NA LIMITATIONS: Lordotic portable film, obese patient FINDINGS: LUNGS AND PLEURA: No opacities, masses or pneumothorax. No pleural effusion. MEDIASTINUM AND HILAR STRUCTURES: No masses. Contour normal. HEART AND VASCULAR STRUCTURES: Heart normal in size. Normal vasculature. BONES: No acute findings. HARDWARE: None in the chest. OTHER: No other significant finding. IMPRESSION: NO ACUTE RADIOGRAPHIC FINDING IN THE CHEST. TECHNICAL DOCUMENTATION: JOB ID: [id number] 2010 [employer] All Rights Reserved Reading location - IP/workstation name: [email or web address]
[2019-08-20 15:13] LABS: ALBUMIN 3.8 g/dL (3.5-5.0); ALKALINE PHOSPHATASE 119 U/L (38-126); ANION GAP 10 (5-19); ASPARTATE AMINO TRANSFERASE 48 U/L (14-36); BILIRUBIN,DIRECT 0.3 mg/dL (0.0-0.4); BILIRUBIN,TOTAL 0.7 mg/dL (0.2-1.3); BLOOD UREA NITROGEN 8 mg/dL (7-20); CALCIUM 9.1 mg/dL (8.4-10.2); CARBON DIOXIDE 28 mmol/L (22-30); CHLORIDE 103 mmol/L (98-107); GLUCOSE 138 mg/dL (75-110); POTASSIUM 3.6 mmol/L (3.6-5.0); TOTAL PROTEIN 6.5 g/dL (6.3-8.2)
[2019-08-20] MEDS ORDERED: METHYLPREDNISOLONE INJ 125 MG/2 ML SDV IV ONE (15:50)
[2019-08-20] MEDS ORDERED: IPRATROPIUM/ALBUTEROL 0.5-2.5 MG/3 ML AMPUL NEB ONE (15:50)
--- NOTE | 2019-08-20 15:58 | ER Document Report ---
ED General - General Chief Complaint: Shortness Of Breath Stated Complaint: DIFFICULTY BREATHING Time Seen by Provider: 08/20/19 15:39 Primary Care Provider: ISAC REESE MD [Primary Care Provider] - Follow up as needed TRAVEL OUTSIDE OF THE [place] IN LAST 30 DAYS: No - HPI Notes: 69-year-old female seen for coughing, wheezing low-grade fever and difficulty breathing. Symptoms been present for nearly 2 weeks. She has been seen at an outpatient urgent care center where she was diagnosed over a week ago with "bronchitis and pneumonia" and states that she was treated with an injection of steroid and oral Levaquin. She finished this yesterday. She ran a temperature of 101 overnight and has had increased coughing without sputum production. Her wheezes are increased. She is not currently on home oxygen. Patient denies past history of smoking. Patient denies any travel outside the area. She denies known exposure to sick individuals and specifically has not come in contact with anyone testing positive for COVID-19. Review of records here shows prior admission for pneumonia in April 2019. - Related Data Allergies/Adverse Reactions: No Known Allergies Allergy (Verified 02/26/18 14:39) Past Medical History - General Information source: Patient - Social History Smoking Status: Never Smoker Chew tobacco use (# tins/day): No Frequency of alcohol use: None Drug Abuse: None Family History: COPD, DM, Malignancy - Thyroid cancer, Other - Alzheimer's disease. denies: Arthritis, CAD, Hypertension Patient has suicidal ideation: No Patient has homicidal ideation: No - Past Medical History Cardiac Medical History: Reports: Hx Congestive Heart Failure, Hx Hypercholesterolemia Denies: Hx Atrial Fibrillation, Hx Coronary Artery Disease, Hx DVT, Hx Heart Attack, Hx Hypertension, Hx Peripheral Vascular Disease, Hx Pulmonary Embolism Pulmonary Medical History: Reports: Hx Bronchitis, Hx COPD, Hx Pneumonia, Hx Respiratory Failure Denies: Hx Asthma Neurological Medical History: Denies: Hx Seizures Endocrine Medical History: Reports: Hx Hypothyroidism. Denies: Hx Diabetes Mellitus Type 1, Hx Diabetes Mellitus Type 2, Hx Hyperthyroidism Renal/ Medical History: Denies: Hx Peritoneal Dialysis GI Medical History: Reports: Hx Gastroesophageal Reflux Disease. Denies: Hx Cirrhosis, Hx Crohn's Disease, Hx Hepatitis, Hx Ulcerative Colitis Musculoskeletal Medical History: Denies Hx Arthritis, Denies Hx Gout Skin Medical History: Denies Hx Eczema, Denies Hx Psoriasis Psychiatric Medical History: Reports: Hx Anxiety, Hx Depression Infectious Medical History: Denies: Hx Hepatitis Past Surgical History: Reports: Hx Abdominal Surgery - gastric bypass, Hx Section, Hx Cholecystectomy, Hx Gastric Bypass Surgery, Hx Herniorrhaphy - Immunizations Hx Pneumococcal Vaccination: 06/17/16 Review of Systems - Review of Systems Notes: Constitutional: As per HPI HENT: Negative for sore throat. Eyes: Negative for visual changes. Cardiovascular: Negative for chest pain. Respiratory: As per HPI. Gastrointestinal: Negative for abdominal pain, vomiting or diarrhea. Genitourinary: Negative for dysuria. Musculoskeletal: Negative for back pain. Skin: Negative for rash. Neurological: Negative for headaches, focal weakness or numbness. 10 point ROS negative except as marked above and in HPI. Physical Exam - Vital signs Vitals: Resp 14 08/20/19 14:11 - Notes Notes: GENERAL: Elderly female who is coughing and appears mildly dyspneic on 2 L nasal O2 with O2 sat 98% this time. SKIN: Good turgor no rashes. HEAD: Normocephalic atraumatic. EYES: PERRLA. EOMI. Conjunctivae and sclerae clear. EARS: CANALS AND TMS CLEAR. NOSE: CLEAR. MOUTH: Moist mucosa. Good dentition. No stridor or edema. No drooling. NECK: Supple. No masses or thyromegaly. No adenopathy. Carotids 2+ without bruits. No JVD. BACK: Symmetrical without tenderness. CHEST: Respirations mildly labored. Dry cough with coarse rhonchi and faint wheezes bilaterally. Breath sounds are symmetrical. HEART: Tachycardic regular rhythm. No murmur gallop or rub. ABDOMEN: Soft, obese, nontender without masses, organomegaly or rebound. Bowel sounds normally active. No bruits. GENITALIA: Deferred. EXTREMITIES: 1+ bilateral pretibial edema. No calf tenderness. Cap refill less than 1.5 seconds. Dorsalis pedis and posterior tibial pulses 3+ and sy mmetrical. NEUROLOGICAL: GCS 15. Alert and oriented x3. Fluent speech. Cranial nerves II through XII intact. Sensorimotor and cerebellar normal. Normal tone. PSYCHIATRIC: Flat affect. Course - Re-evaluation Re-evalutation: 08/20/19 15:58 This appears to be primarily COPD exacerbation. We will do serologic testing for influenza and complete labs including an arterial blood gas. IV steroids. Multiple nebulizer treatments to be administered. In view of new oxygen requirement I will anticipate admission for this patient. - Vital Signs Vital signs: Temp Pulse Resp BP Pulse Ox 98.5 F 22 H 145/83 H 99 08/20/19 15:48 08/20/19 19:01 08/20/19 19:01 08/20/19 19:01 - Laboratory Result Diagrams: 08/20/19 14:21 08/20/19 14:21 Laboratory results interpreted by me: 08/20/19 08/20/19 08/20/19 14:21 14:21 16:52 RDW 15.1 H Carbonic Acid 0.99 L ABG pH 7.47 H ABG pCO2 32.8 L ABG pO2 110.4 H ABG O2 Saturation 98.3 H Glucose 138 H AST 48 H - Diagnostic Test Radiology reviewed: Reports reviewed - Chest x-ray shows no active disease per radiologist. - EKG Interpretation by Me Additional EKG results interpreted by me: 08/20/19 16:04 Twelve-lead EKG from 1419 hrs. reviewed contemporaneously by me demonstrating sinus tachycardia and a lot of movement artifact. Patient has some PACs present as well. QRS axis is -63 degrees. There are no acute ST elevations. Discharge - Discharge Clinical Impression: Acute exacerbation of COPD with asthma Condition: Stable Disposition: ADMITTED OBSERVATION Admitting Provider: Dr. Galloway Unit Admitted: Medical Floor Referrals: ISAC REESE MD [Primary Care Provider] - Follow up as needed
[2019-08-20 17:06] LABS: ARTERIAL BLOOD BASE EXCESS 0.2 mmol/L; ARTERIAL BLOOD H2CO3 0.99 mmol/L (1.05-1.35); ARTERIAL BLOOD HCO3 23.1 mmol/L (20-24); ARTERIAL BLOOD O2 SATURATION 98.3 % (94-98); ARTERIAL BLOOD PCO2 32.8 mmHg (35-45); ARTERIAL BLOOD PH 7.47 (7.35-7.45); ARTERIAL BLOOD PO2 110.4 mmHg (80-100); ARTERIAL BLOOD TOTAL CO2 24.1 mmol/L (21-25)
[2019-08-20 17:07] LABS: ARTERIAL BLOOD FIO2 5L
--- NOTE | 2019-08-20 17:25 | EKG REPORT ---
SEVERITY:- ABNORMAL ECG - SINUS TACHYCARDIA LEFT ANTERIOR FASCICULAR BLOCK ANTEROLATERAL INFARCT, AGE INDETERMINATE : Confirmed by: Napoleon Lamb MD 20-Aug-2019 17:24:32
[2019-08-20 18:03] LABS: A TYPE INFLUENZA AG NEGATIVE (NEGATIVE); B INFLUENZA AG NEGATIVE (NEGATIVE)
[2019-08-20] MEDS ORDERED: HYDROXYZINE PAMOATE 50 MG CAPSULE PO ONE (18:23)
[2019-08-20 18:31] LABS: NT PRO BNP 108 pg/mL (<125)
[2019-08-20 18:39] LABS: TROPONIN I < 0.012 ng/mL
[2019-08-20] MEDS ORDERED: HYDROCODONE/ACETAMINOPHEN 5-325 MG (6 TAB/ER DISP) PO PRN (19:01)
[2019-08-20] MEDS ORDERED: HYDROCODONE/ACETAMINOPHEN 5-325 MG TABLET PO ONE (19:39)
[2019-08-20 19:52] LABS: APPEARANCE,URINE SLIGHTLY-CLOUDY; BILIRUBIN,URINE NEGATIVE (NEGATIVE); COLOR,URINE YELLOW; GLUCOSE, URINE >=500 mg/dL (NEGATIVE); KETONES,URINE 20 mg/dL (NEGATIVE); LEUKOCYTE ESTERASE,URINE TRACE (NEGATIVE); NITRITE,URINE NEGATIVE (NEGATIVE); PROTEIN,URINE 30 mg/dL (NEGATIVE); URINE SPECIFIC GRAVITY 1.018; UROBILINOGEN,URINE NEGATIVE mg/dL (<2.0)
[2019-08-20] MEDS ORDERED: PROMETHAZINE HCL 25 MG TABLET PO PRN (20:52)
[2019-08-20] MEDS ORDERED: ONDANSETRON 4 MG TAB.RAPDIS PO PRN (20:52)
[2019-08-20] MEDS ORDERED: PROMETHAZINE HCL INJ 25 MG/1 ML VIAL IV PRN (20:52)
[2019-08-20] MEDS ORDERED: ONDANSETRON HCL INJ/PF 4 MG/2 ML SDV IV PRN (20:52)
--- NOTE | 2019-08-20 21:25 | PDOC H&P ---
History of Present Illness Admission Date/PCP: 08/20/19 19:59 ISAC RAYA MD History of Present Illness: PAULINE BOSCH is a 69 year old female with past medical history significant for COPD, history of [place], history of breast cancer successfully treated, asthma who presented with 3 days of progressive shortness of breath/CAMARILLO and a dry cough. Patient was treated for 5 days of Levaquin by her PCP for suspected pneumonia last week however patient states she did not feel any better after this. She states she has never smoked cigarettes however she has secondhand smoke exposure from multiple family members. She is followed by Dr. Raya and pulmonology. On admission, ABG showed mild respiratory alkalosis, otherwise unremarkable. UA showed small amount of protein and a large amount of glucose with ketones. Patient denies any history of diabetes and is not on any medicat ions for this. Given steroids, nebulizer treatments in ED with some improvement. She does not use home oxygen. Past Medical History Cardiac Medical History: Reports: Congestive Heart Failure, Hyperlipidema Denies: Atrial Fibrillation, Coronary Artery Disease, DVT, Myocardial Infarction, Hypertension, Peripheral Vascular Disease, Pulmonary Embolism Pulmonary Medical History: Reports: Bronchitis, Chronic Obstructive Pulmonary Disease (COPD), Pneumonia, Respiratory Failure Denies: Asthma Neurological Medical History: Denies: Seizures Endocrine Medical History: Reports: Hypothyroidism Denies: Diabetes Mellitus Type 1, Diabetes Mellitus Type 2, Hyperthyroidism GI Medical History: Reports: Gastroesophageal Reflux Disease Denies: Cirrhosis, Crohn's Disease, Hepatitis, Ulcerative Colitis Musculoskeltal Medical History: Denies: Arthritis, Gout Skin Medical History: Denies: Eczema, Psoriasis Psychiatric Medical History: Reports: Depression Hematology: Reports: Anemia Denies: Bleeding Tendencies Past Surgical History Past Surgical History: Reports: Section, Cholecystectomy, Gastric Bypass Surgery, Herniorrhaphy Social History Smoking Status: Never Smoker Electronic Cigarette use?: No Frequency of Alcohol Use: None Hx Recreational Drug Use: No Drugs: None Hx Prescription Drug Abuse: No - Advance Directive Resuscitation Status: Full Code Surrogate healthcare decision maker:: Spouse Family History Family History: Reviewed & Not Pertinent, COPD, DM, Malignancy - Thyroid cancer, Other - Alzheimer's disease. denies: Arthritis, CAD, Hypertension Parental Family History Reviewed: Yes Children Family History Reviewed: Yes Sibling(s) Family History Reviewed.: Yes Medication/Allergy Home Medications: Aripiprazole [Abilify 15 mg Tablet] 15 mg PO QHS 04/30/19 Calcium Carbonate [Calcium] 1,200 mg PO BID 04/30/19 Cholecalciferol (Vitamin D3) [Vitamin D3] 2,000 unit PO DAILY 04/30/19 Cyanocobalamin (Vitamin B-12) [Vitamin B12] 2,500 mcg PO Q2D 04/30/19 Eszopiclone [Lunesta] 3 mg PO QHS 04/30/19 Furosemide [Lasix 40 mg Tablet] 40 mg PO BID 04/30/19 Glucosamine Sulfate Dipot Chlr [Glucosamine] 1,500 mg PO BID 04/30/19 Hydrocodone/Acetaminophen [[place] 10-325 mg Tablet] 1 tab PO Q8HP PRN 04/30/19 Lansoprazole [Prevacid] 30 mg PO DAILY 04/30/19 Levothyroxine Sodium [Synthroid 0.075 mg Tablet] 0.075 mg PO Q6AM 04/30/19 Multivitamin [Tab-A-[place] (Multiple Vitamin) Tablet] 1 tab PO DAILY 04/30/19 [place]-3 Fatty Acids/Fish Oil [[place] 3 Fish Oil Softgel] 1,360 mg PO TID 04/30/19 Potassium 595mg 595 mg PO DAILY 04/30/19 Pregabalin [Lyrica 75 mg Capsule] 75 mg PO Q8 04/30/19 Rosuvastatin Calcium [Crestor 20 mg Tablet] 20 mg PO QAM 04/30/19 Tapentadol HCl [Nucynta ER] 150 mg PO Q12 04/30/19 Trazodone HCl [Desyrel 50 mg Tablet] 100 mg PO QHS 04/30/19 Venlafaxine HCl [Effexor 75 mg Tablet] 75 mg PO Q8 04/30/19 Vitamin E (Dl,Tocopheryl Acet) [Vitamin E] 400 unit PO DAILY 04/30/19 Zolpidem Tartrate [Ambien] 10 mg PO QHS 04/30/19 Albuterol Sulfate [Proair Hfa Inhalation Aerosol 8.5 gm Mdi] 1 puff IH Q6 30 Days #1 mdi 05/02/19 Levofloxacin [Levaquin 500 mg Tablet] 500 mg PO DAILY 4 Days #4 tablet 05/02/19 Tiotropium [place] [Spiriva Respimat] 4 gm IH DAILY 30 Days #1 mist.inhal 05/02/19 Allergies/Adverse Reactions: No Known Allergies Allergy (Verified 02/26/18 14:39) Review of Systems All systems: reviewed and no additional remarkable complaints except as stated - See HPI for full ROS, otherwise negative Physical Exam Vital Signs: Temp Pulse Resp BP Pulse Ox 98.0 F 49 H 142/77 H 99 08/20/19 19:52 08/20/19 20:01 08/20/19 20:01 08/20/19 20:01 Intake & Output 08/19/19 08/20/19 08/21/19 06:59 06:59 06:59 Weight 110.9 kg General appearance: PRESENT: no acute distress, cooperative, morbidly obese Head exam: PRESENT: atraumatic, normocephalic Eye exam: PRESENT: conjunctiva pink Mouth exam: PRESENT: moist Respiratory exam: PRESENT: wheezes. ABSENT: rales, rhonchi Cardiovascular exam: PRESENT: RRR. ABSENT: diastolic murmur, rubs, systolic murmur GI/Abdominal exam: PRESENT: normal bowel sounds, soft. ABSENT: distended, guarding, mass, organolmegaly, rebound, tenderness Extremities exam: ABSENT: pedal edema Musculoskeletal exam: PRESENT: ambulatory Neurological exam: PRESENT: alert, awake, oriented to person, oriented to place, oriented to time, oriented to situation Psychiatric exam: PRESENT: appropriate affect, normal mood Skin exam: PRESENT: dry, intact, warm Results Laboratory Results: 08/20/19 14:21 08/20/19 14:21 08/20/19 08/20/19 08/20/19 14:21 14:21 16:52 WBC 7.1 RBC 5.02 Hgb 14.9 Hct 43.3 MCV 86 MCH 29.6 MCHC 34.4 RDW 15.1 H Plt Count 199 Seg Neutrophils % 69.5 Carbonic Acid 0.99 L HCO3/H2CO3 Ratio 23:1 ABG pH 7.47 H ABG pCO2 32.8 L ABG pO2 110.4 H ABG HCO3 23.1 ABG O2 Saturation 98.3 H ABG Base Excess 0.2 FiO2 5L Sodium 140.7 Potassium 3.6 Chloride 103 Carbon Dioxide 28 Anion Gap 10 BUN 8 Creatinine 0.67 Est GFR ( Amer) > 60 Glucose 138 H Calcium 9.1 Total Bilirubin 0.7 AST 48 H Alkaline Phosphatase 119 Total Protein 6.5 Albumin 3.8 Urine Color Urine Appearance Urine pH Ur Specific [place] Urine Protein Urine Glucose (UA) Urine Ketones Urine Blood Urine Nitrite Ur Leukocyte Esterase Urine WBC (Auto) Urine RBC (Auto) 08/20/19 19:37 WBC RBC Hgb Hct MCV MCH MCHC RDW Plt Count Seg Neutrophils % Carbonic Acid HCO3/H2CO3 Ratio ABG pH ABG pCO2 ABG pO2 ABG HCO3 ABG O2 Saturation ABG Base Excess FiO2 Sodium Potassium Chloride Carbon Dioxide Anion Gap BUN Creatinine Est GFR ( Amer) Glucose Calcium Total Bilirubin AST Alkaline Phosphatase Total Protein Albumin Urine Color YELLOW Urine Appearance SLIGHTLY-CLOUDY Urine pH 5.0 Ur Specific [place] 1.018 Urine Protein 30 H Urine Glucose (UA) >=500 H Urine Ketones 20 H Urine Blood NEGATIVE Urine Nitrite NEGATIVE Ur Leukocyte Esterase TRACE H Urine WBC (Auto) 6 Urine RBC (Auto) 2 08/20/19 14:21 Troponin I < 0.012 NT-Pro-B Natriuret Pep 108 Impressions: Chest X-Ray 08/20/19 14:05 IMPRESSION: NO ACUTE RADIOGRAPHIC FINDING IN THE CHEST. Assessment and Plan - Diagnosis (1) Acute exacerbation of COPD with asthma Is this a current diagnosis for this admission?: Yes Plan: Per patient, likely due to secondhand smoke Schedule duo nebs Schedule prednisone with anticipated taper when she improves Bronchial hygiene Supplemental oxygen to maintain saturations 89 to 94% Needs follow-up with Dr. Raya No indication for another round of antibiotics as he just finished Levaquin (2) Acute respiratory failure with hypoxemia Is this a current diagnosis for this admission?: Yes Plan: Due to acute COPD exacerbation and asthma Duo nebs, steroids, supplemental oxygen (3) Chronic pain syndrome Is this a current diagnosis for this admission?: Yes Plan: Home medications continued Limit use of narcotics and benzodiazepines due to risk of respiratory drive depression (4) Depression Qualifiers: Depression Type: unspecified Qualified Code(s): F32.9 - Major depressive d isorder, single episode, unspecified Is this a current diagnosis for this admission?: Yes Plan: No medication continued (5) Morbid obesity with BMI of 50.0-59.9, adult Is this a current diagnosis for this admission?: Yes - Time Time Spent with patient: 35 or more minutes Medications reviewed and adjusted accordingly: Yes Anticipated discharge: Home - Inpatient Certification Based on my medical assessment, after consideration of the patient's comorbidities, presenting symptoms, or acuity I expect that the services needed warrant INPATIENT care.: Yes I certify that my determination is in accordance with my understanding of Medicare's requirements for reasonable and necessary INPATIENT services [42 CFR 412.3e].: Yes Medical Necessity: Significant Comorbidiites Make Outpatient Treatment Too Risky, Need Close Monitoring Due to Risk of Patient Decompensation, Need for Nebulizer Therapy and Monitoring of Response
--- NOTE | 2019-08-20 21:26 | ADVANCED CARE ---
- Diagnosis (1) Acute exacerbation of COPD with asthma Diagnosis Current: Yes (2) Acute respiratory failure with hypoxemia Diagnosis Current: Yes (3) Chronic pain syndrome Diagnosis Current: Yes (4) Depression Diagnosis Current: Yes (5) Morbid obesity with BMI of 50.0-59.9, adult Diagnosis Current: Yes Attendance: Patient Resuscitation Status: Full Code Discussion: All aspects of CODE STATUS discussed including chest compressions, cardioversion, intubation and patient states she would like to be full code. 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
[2019-08-20] MEDS: IPRATROPIUM/ALBUTEROL 0.5-2.5 MG/3 ML AMPUL NEB SCH ×2 (21:59→23:38)
[2019-08-20] MEDS ORDERED: ALBUTEROL SULFATE HFA (90 MCG/PUFF) 8 GM MDI (1 MDI/ER DISP) IH PRN (22:13)
[2019-08-20] MEDS ORDERED: HYDROCODONE/ACETAMINOPHEN 10-325 MG TABLET PO PRN (22:13)
[2019-08-20] MEDS: ALPRAZOLAM 0.25 MG TABLET PO PRN (22:21)
[2019-08-21] MEDS ORDERED: ZOLPIDEM TARTRATE 5 MG TABLET PO PRN ×2 (01:56→22:00)
[2019-08-21] MEDS: IPRATROPIUM/ALBUTEROL 0.5-2.5 MG/3 ML AMPUL NEB SCH ×6 (03:58→23:43)
[2019-08-21] MEDS ORDERED: TRAZODONE HCL 50 MG TABLET PO ONE (04:00)
[2019-08-21] MEDS ORDERED: LEVOTHYROXINE SODIUM 0.075 MG TABLET ONE (05:46)
[2019-08-21 05:53] LABS: ABSOLUTE LYMPHOCYTES (AUTO) 0.4 10^3/uL (0.5-4.7); ABSOLUTE MONOCYTES (AUTO) 0.1 10^3/uL (0.1-1.4); ABSOLUTE NEUT (AUTO) 3.4 10^3/uL (1.7-8.2); BASOPHILS % (AUTO) 0.1 % (0-2); HEMATOCRIT 39.5 % (36.0-47.0); HEMOGLOBIN 13.7 g/dL (12.0-15.5); LYMPHOCYTES % (AUTO) 10.8 % (13-45); MEAN CORPUSCULAR HEMOGLOBIN 29.6 pg (27.0-33.4); MEAN CORPUSCULAR HGB CONC 34.6 g/dL (32.0-36.0); MEAN CORPUSCULAR VOLUME 85 fl (80-97); MONOCYTES % (AUTO) 3.1 % (3-13); PLATELET COUNT 198 10^3/uL (150-450); RED BLOOD COUNT 4.63 10^6/uL (3.72-5.28); TOTAL CELLS COUNTED % (AUTO) 100 %; WHITE BLOOD COUNT 3.9 10^3/uL (4.0-10.5)
[2019-08-21] MEDS: PANTOPRAZOLE SODIUM 40 MG TABLET.DR PO SCH (05:53)
[2019-08-21] MEDS: VENLAFAXINE HCL 75 MG TABLET PO SCH ×3 (05:53→21:18)
[2019-08-21] MEDS: LEVOTHYROXINE SODIUM 0.075 MG TABLET PO SCH (05:54)
[2019-08-21] MEDS: PREGABALIN 75 MG CAPSULE PO SCH ×3 (05:54→21:18)
[2019-08-21 06:14] LABS: ANION GAP 7 (5-19); BLOOD UREA NITROGEN 7 mg/dL (7-20); CALCIUM 9.3 mg/dL (8.4-10.2); CARBON DIOXIDE 25 mmol/L (22-30); CHLORIDE 107 mmol/L (98-107); GLUCOSE 188 mg/dL (75-110); PHOSPHORUS 2.2 mg/dL (2.5-4.5); POTASSIUM 3.5 mmol/L (3.6-5.0)
[2019-08-21] MEDS: FUROSEMIDE 40 MG TABLET PO SCH ×2 (09:59→17:09)
[2019-08-21] MEDS: MULTIVITAMIN TABLET PO SCH (09:59)
[2019-08-21] MEDS: CALCIUM CARBONATE 600 MG TABLET PO SCH ×2 (09:59→17:09)
[2019-08-21] MEDS: PREDNISONE 20 MG TABLET PO SCH (10:00)
[2019-08-21] MEDS: ALPRAZOLAM 0.25 MG TABLET PO PRN ×2 (10:00→21:19)
[2019-08-21] MEDS: ENOXAPARIN SODIUM INJ 40 MG/0.4 ML DISP.SYRIN SUBCUT SCH (10:00)
[2019-08-21] MEDS ORDERED: (PENDING PHARMACY ID) (Tiotropium Bromide [Spiriva Respimat] 1 PUFF) IH SCH (10:00)
[2019-08-21] MEDS ORDERED: (PENDING PHARMACY ID) (Tapentadol Hcl [Nucynta Er] 150 MG) PO SCH ×2 (17:00→22:00)
[2019-08-21] MEDS: POTASSIUM CHLORIDE 10 MEQ TABLET.ER PO SCH (17:09)
--- NOTE | 2019-08-21 18:53 | PDOC PROGRESS REPORT ---
Subjective Progress Note for:: 08/21/19 Subjective:: PAULINE BOSCH is a 69 year old female with past medical history significant for COPD, history of [place], history of breast cancer successfully treated, asthma who presented with 3 days of progressive shortness of breath/CAMARILLO and a dry cough. Patient was treated for 5 days of Levaquin by her PCP for suspected pneumonia last week however patient states she did not feel any better after this. She states she has never smoked cigarettes however she has secondhand smoke exposure from multiple family members. She is followed by Dr. Raya and pulmonology. On admission, ABG showed mild respiratory alkalosis, otherwise unremarkable. UA showed small amount of protein and a large amount of glucose with ketones. Patient denies any history of diabetes and is not on any medications for this. Given steroids, nebulizer treatments in ED with some improvement. She does not use home oxygen. 08/21/2011. No acute events overnight. Resting comfortably bed no apparent distress. On physical examination patient is still has bilateral bibasilar crackles and expiratory wheezing. Reason For Visit: COPD EXACERBATION,ACUTE HYPOXEMIC RESP FAILURE Physical Exam Vital Signs: Temp Pulse Resp BP Pulse Ox 98.2 F 103 H 16 133/56 H 95 08/21/19 15:12 08/21/19 15:35 08/21/19 15:35 08/21/19 15:12 08/21/19 15:35 Intake & Output 08/20/19 08/21/19 08/22/19 06:59 06:59 06:59 Intake Total 120 Balance 120 Weight 111.8 kg General appearance: PRESENT: no acute distress, well-developed, well-nourished Head exam: PRESENT: atraumatic, normocephalic Respiratory exam: PRESENT: crackles, decreased breath sounds, prolonged expiratory phas. ABSENT: rales, rhonchi, wheezes Cardiovascular exam: PRESENT: RRR. ABSENT: diastolic murmur, rubs, systolic murmur GI/Abdominal exam: PRESENT: normal bowel sounds, soft. ABSENT: distended, guarding, mass, organolmegaly, rebound, tenderness Neurological exam: PRESENT: alert, awake, oriented to person, oriented to place, oriented to time, oriented to situation, CN II-XII grossly intact. ABSENT: motor sensory deficit Results Laboratory Results: 08/21/19 04:47 08/21/19 04:47 08/20/19 08/21/19 08/21/19 19:37 04:47 04:47 WBC 3.9 L RBC 4.63 Hgb 13.7 Hct 39.5 MCV 85 MCH 29.6 MCHC 34.6 RDW 15.0 H Plt Count 198 Seg Neutrophils % 86.0 H Sodium 138.5 Potassium 3.5 L Chloride 107 Carbon Dioxide 25 Anion Gap 7 BUN 7 Creatinine 0.57 Est GFR ( Amer) > 60 Glucose 188 H Calcium 9.3 Phosphorus 2.2 L Magnesium 2.0 Urine Color YELLOW Urine Appearance SLIGHTLY-CLOUDY Urine pH 5.0 Ur Specific [place] 1.018 Urine Protein 30 H Urine Glucose (UA) >=500 H Urine Ketones 20 H Urine Blood NEGATIVE Urine Nitrite NEGATIVE Ur Leukocyte Esterase TRACE H Urine WBC (Auto) 6 Urine RBC (Auto) 2 08/20/19 14:21 Troponin I < 0.012 NT-Pro-B Natriuret Pep 108 Impressions: Chest X-Ray 08/20/19 14:05 IMPRESSION: NO ACUTE RADIOGRAPHIC FINDING IN THE CHEST. Assessment and Plan - Diagnosis (1) Acute exacerbation of COPD with asthma Is this a current diagnosis for this admission?: Yes Plan: Per patient, likely due to secondhand smoke Schedule duo nebs Schedule prednisone with anticipated taper when she improves Bronchial hygiene Supplemental oxygen to maintain saturations 89 to 94% Needs follow-up with Dr. Raya No indication for another round of antibiotics as he just finished Levaquin (2) Acute respiratory failure with hypoxemia Is this a current diagnosis for this admission?: Yes Plan: Due to acute COPD exacerbation and asthma Duo nebs, steroids, supplemental oxygen (3) Chronic pain syndrome Is this a current diagnosis for this admission?: Yes Plan: Home medications continued Limit use of narcotics and benzodiazepines due to risk of respiratory drive depression (4) Depression Qualifiers: Depression Type: unspecified Qualified Code(s): F32.9 - Major depressive disorder, single episode, unspecified Is this a current diagnosis for this admission?: Yes Plan: No medication continued (5) Morbid obesity with BMI of 50.0-59.9, adult Is this a current diagnosis for this admission?: Yes
[2019-08-21] MEDS ORDERED: ARIPIPRAZOLE 5 MG TABLET PO SCH (22:00)
[2019-08-21] MEDS ORDERED: TRAZODONE HCL 50 MG TABLET PO SCH (22:00)
[2019-08-21] MEDS ORDERED: ATORVASTATIN CALCIUM 40 MG TABLET PO SCH (22:00)
[2019-08-21] MEDS ORDERED: (PENDING PHARMACY ID) (Zolpidem Tartrate [Ambien] 10 MG) PO SCH (22:00)
[2019-08-22] MEDS: IPRATROPIUM/ALBUTEROL 0.5-2.5 MG/3 ML AMPUL NEB SCH ×3 (03:58→12:26)
[2019-08-22] MEDS: VENLAFAXINE HCL 75 MG TABLET PO SCH (05:04)
[2019-08-22] MEDS: LEVOTHYROXINE SODIUM 0.075 MG TABLET PO SCH (05:05)
[2019-08-22] MEDS: PANTOPRAZOLE SODIUM 40 MG TABLET.DR PO SCH (05:05)
[2019-08-22] MEDS: PREGABALIN 75 MG CAPSULE PO SCH (05:05)
[2019-08-22 05:36] LABS: ANION GAP 9 (5-19); BLOOD UREA NITROGEN 11 mg/dL (7-20); CALCIUM 9.5 mg/dL (8.4-10.2); CARBON DIOXIDE 30 mmol/L (22-30); CHLORIDE 104 mmol/L (98-107); GLUCOSE 109 mg/dL (75-110); POTASSIUM 4.2 mmol/L (3.6-5.0)
[2019-08-22] MEDS: MULTIVITAMIN TABLET PO SCH (09:21)
[2019-08-22] MEDS: FUROSEMIDE 40 MG TABLET PO SCH (09:22)
[2019-08-22] MEDS: PREDNISONE 20 MG TABLET PO SCH (09:22)
[2019-08-22] MEDS: POTASSIUM CHLORIDE 10 MEQ TABLET.ER PO SCH (09:22)
[2019-08-22] MEDS: ENOXAPARIN SODIUM INJ 40 MG/0.4 ML DISP.SYRIN SUBCUT SCH (09:23)
[2019-08-22] MEDS: CALCIUM CARBONATE 600 MG TABLET PO SCH (09:23)
[2019-08-22 12:06] VITALS: BP 105/57
--- NOTE | 2019-08-23 18:15 | PDOC DISCHARGE SUMMARY ---
Impression - Admit/DC Date/PCP Admission Date/Primary Care Provider: 08/20/19 19:59 ISAC RAYA MD Discharge Date: 08/22/19 - Discharge Diagnosis (1) Acute exacerbation of COPD with asthma Is this a current diagnosis for this admission?: Yes (2) Acute respiratory failure with hypoxemia Is this a current diagnosis for this admission?: Yes (3) Chronic pain syndrome Is this a current diagnosis for this admission?: Yes (4) Depression Is this a current diagnosis for this admission?: Yes (5) Morbid obesity with BMI of 50.0-59.9, adult Is this a current diagnosis for this admission?: Yes - Additional Information Resuscitation Status: Full Code Discharge Diet: Cardiac Discharge Activity: Activity As Tolerated Referrals: ISAC RAYA MD [Primary Care Provider] - 09/01/19 10:30 am Prescriptions: Prednisone [Deltasone 20 mg Tablet] 40 mg PO DAILY 3 Days #6 tablet Home Medications: Aripiprazole [Abilify 15 mg Tablet] 15 mg PO QHS 04/30/19 Calcium Carbonate [Calcium] 1,200 mg PO BID 04/30/19 Cholecalciferol (Vitamin D3) [Vitamin D3] 2,000 unit PO DAILY 04/30/19 Cyanocobalamin (Vitamin B-12) [Vitamin B12] 2,500 mcg PO Q2D 04/30/19 Furosemide [Lasix 40 mg Tablet] 40 mg PO BID 04/30/19 Glucosamine Sulfate Dipot Chlr [Glucosamine] 1,500 mg PO BID 04/30/19 Hydrocodone/Acetaminophen [Lytton 10-325 mg Tablet] 1 tab PO Q8HP PRN 04/30/19 Lansoprazole [Prevacid] 30 mg PO DAILY 04/30/19 Levothyroxine Sodium [Synthroid 0.075 mg Tablet] 0.075 mg PO Q6AM 04/30/19 Multivitamin [Tab-A-Teetee (Multiple Vitamin) Tablet] 1 tab PO DAILY 04/30/19 [place]-3 Fatty Acids/Fish Oil [[place] 3 Fish Oil Softgel] 1,360 mg PO TID 04/30/19 Potassium 595mg 595 mg PO DAILY 04/30/19 Pregabalin [Lyrica 75 mg Capsule] 75 mg PO Q8 04/30/19 Rosuvastatin Calcium [Crestor 20 mg Tablet] 20 mg PO QAM 04/30/19 Tapentadol HCl [Nucynta ER] 150 mg PO Q12 04/30/19 Trazodone HCl [Desyrel 50 mg Tablet] 100 mg PO QHS 04/30/19 Venlafaxine HCl [Effexor 75 mg Tablet] 75 mg PO Q8 04/30/19 Vitamin E (Dl,Tocopheryl Acet) [Vitamin E] 400 unit PO DAILY 04/30/19 Zolpidem Tartrate [Ambien] 10 mg PO QHS 04/30/19 Albuterol Sulfate [Proair HFA Inhalation Aerosol 8.5 gm MDI] 1 puff IH Q6HP PRN 08/20/19 Tiotropium [place] [Spiriva Respimat] 1 puff IH DAILY 08/20/19 Prednisone [Deltasone 20 mg Tablet] 40 mg PO DAILY 3 Days #6 tablet 08/22/19 History of Present Illiness History of Present Illness: PAULINE BOSCH is a 69 year old female with past medical history significant for COPD, history of ID, history of breast cancer successfully treated, asthma who presented with 3 days of progressive shortness of breath/CAMARILLO and a dry cough. Patient was treated for 5 days of Levaquin by her PCP for suspected pneumonia last week however patient states she did not feel any better after this. She states she has never smoked cigarettes however she has secondhand smoke exposure from multiple family members. She is followed by Dr. Raya and pulmonology. On admission, ABG showed mild respiratory alkalosis, otherwise unremarkable. UA showed small amount of protein and a large amount of glucose with ketones. Patient denies any history of diabetes and is not on any medications for this. Given steroids, nebulizer treatments in ED with some improvement. She does not use home oxygen. Hospital Course Hospital Course: (1) Acute exacerbation of COPD with asthma Per patient, likely due to secondhand smoke Schedule duo nebs Schedule prednisone with anticipated taper when she improves Bronchial hygiene Supplemental oxygen to maintain saturations 89 to 94% Needs follow-up with Dr. Raya No indication for another round of antibiotics as he just finished Levaquin (2) Acute respiratory failure with hypoxemia Due to acute COPD exacerbation and asthma Duo nebs, steroids, supplemental oxygen (3) Chronic pain syndrome Home medications continued Limit use of narcotics and benzodiazepines due to risk of respiratory drive depression (4) Depression No medication continued (5) Morbid obesity with BMI of 50.0-59.9, adult -Diet and lifestyle modification recommended. Physical Exam Vital Signs: Temp Pulse Resp BP Pulse Ox 98.3 F 67 18 105/57 L 97 08/22/19 11:56 08/22/19 11:56 08/22/19 11:56 08/22/19 11:56 08/22/19 11:56 Intake & Output 08/22/19 08/23/19 08/24/19 05:59 06:59 06:59 Intake Total Balance Weight General appearance: PRESENT: no acute distress, well-developed, well-nourished Head exam: PRESENT: atraumatic, normocephalic Respiratory exam: PRESENT: clear to auscultation neda. ABSENT: rales, rhonchi, wheezes Cardiovascular exam: PRESENT: RRR. ABSENT: diastolic murmur, rubs, systolic murmur GI/Abdominal exam: PRESENT: normal bowel sounds, soft. ABSENT: distended, guarding, mass, organolmegaly, rebound, tenderness Neurological exam: PRESENT: alert, awake, oriented to person, oriented to place, oriented to time, oriented to situation, CN II-XII grossly intact. ABSENT: motor sensory deficit Results Laboratory Results: WBC 3.9 10^3/uL (4.0-10.5) L 08/21/19 04:47 RBC 4.63 10^6/uL (3.72-5.28) 08/21/19 04:47 Hgb 13.7 g/dL (12.0-15.5) 08/21/19 04:47 Hct 39.5 % (36.0-47.0) 08/21/19 04:47 MCV 85 fl (80-97) 08/21/19 04:47 MCH 29.6 pg (27.0-33.4) 08/21/19 04:47 MCHC 34.6 g/dL (32.0-36.0) 08/21/19 04:47 RDW 15.0 % (11.5-14.0) H 08/21/19 04:47 Plt Count 198 10^3/uL (150-450) 08/21/19 04:47 Lymph % (Auto) 10.8 % (13-45) L 08/21/19 04:47 Mcclain % (Auto) 3.1 % (3-13) 08/21/19 04:47 Eos % (Auto) 0.0 % (0-6) 08/21/19 04:47 Baso % (Auto) 0.1 % (0-2) 08/21/19 04:47 Absolute Neuts (auto) 3.4 10^3/uL (1.7-8.2) 08/21/19 04:47 Absolute Lymphs (auto) 0.4 10^3/uL (0.5-4.7) L 08/21/19 04:47 Absolute Monos (auto) 0.1 10^3/uL (0.1-1.4) 08/21/19 04:47 Absolute Eos (auto) 0.0 10^3/uL (0.0-0.6) 08/21/19 04:47 Absolute Basos (auto) 0.0 10^3/uL (0.0-0.2) 08/21/19 04:47 Seg Neutrophils % 86.0 % (42-78) H 08/21/19 04:47 Carbonic Acid 0.99 mmol/L (1.05-1.35) L 08/20/19 16:52 HCO3/H2CO3 Ratio 23:1 08/20/19 16:52 ABG pH 7.47 (7.35-7.45) H 08/20/19 16:52 ABG pCO2 32.8 mmHg (35-45) L 08/20/19 16:52 ABG pO2 110.4 mmHg (80-100) H 08/20/19 16:52 ABG HCO3 23.1 mmol/L (20-24) 08/20/19 16:52 ABG Total CO2 24.1 mmol/L (21-25) 08/20/19 16:52 ABG O2 Saturation 98.3 % (94-98) H 08/20/19 16:52 ABG Base Excess 0.2 mmol/L 08/20/19 16:52 FiO2 5L 08/20/19 16:52 Sodium 143.4 mmol/L (137-145) 08/22/19 04:25 Potassium 4.2 mmol/L (3.6-5.0) 08/22/19 04:25 Chloride 104 mmol/L (98-107) 08/22/19 04:25 Carbon Dioxide 30 mmol/L (22-30) 08/22/19 04:25 Anion Gap 9 (5-19) 08/22/19 04:25 BUN 11 mg/dL (7-20) 08/22/19 04:25 Creatinine 0.75 mg/dL (0.52-1.25) 08/22/19 04:25 Est GFR ( Amer) > 60 (>60) 08/22/19 04:25 Est GFR (MDRD) Non-Af > 60 (>60) 08/22/19 04:25 Glucose 109 mg/dL (75-110) 08/22/19 04:25 Hemoglobin A1c % 5.3 % (4.7-6.0) 08/20/19 14:21 Calcium 9.5 mg/dL (8.4-10.2) 08/22/19 04:25 Phosphorus 2.2 mg/dL (2.5-4.5) L 08/21/19 04:47 Magnesium 2.2 mg/dL (1.6-2.3) 08/22/19 04:25 Total Bilirubin 0.7 mg/dL (0.2-1.3) 08/20/19 14:21 Direct Bilirubin 0.3 mg/dL (0.0-0.4) 08/20/19 14:21 Neonat Total Bilirubin Not Reportable 08/20/19 14:21 Neonat Direct Bilirubin Not Reportable 08/20/19 14:21 Neonat Indirect Bili Not Reportable 08/20/19 14:21 AST 48 U/L (14-36) H 08/20/19 14:21 ALT 33 U/L (<35) 08/20/19 14:21 Alkaline Phosphatase 119 U/L (38-126) 08/20/19 14:21 Troponin I < 0.012 ng/mL 08/20/19 14:21 NT-Pro-B Natriuret Pep 108 pg/mL (<125) 08/20/19 14:21 Total Protein 6.5 g/dL (6.3-8.2) 08/20/19 14:21 Albumin 3.8 g/dL (3.5-5.0) 08/20/19 14:21 Urine Color YELLOW 08/20/19 19:37 Urine Appearance SLIGHTLY-CLOUDY 08/20/19 19:37 Urine pH 5.0 (5.0-9.0) 08/20/19 19:37 Ur Specific [place] 1.018 08/20/19 19:37 Urine Protein 30 mg/dL (NEGATIVE) H 08/20/19 19:37 Urine Glucose (UA) >=500 mg/dL (NEGATIVE) H 08/20/19 19:37 Urine Ketones 20 mg/dL (NEGATIVE) H 08/20/19 19:37 Urine Blood NEGATIVE (NEGATIVE) 08/20/19 19:37 Urine Nitrite NEGATIVE (NEGATIVE) 08/20/19 19:37 Urine Bilirubin NEGATIVE (NEGATIVE) 08/20/19 19:37 Urine Urobilinogen NEGATIVE mg/dL (<2.0) 08/20/19 19:37 Ur Leukocyte Esterase TRACE (NEGATIVE) H 08/20/19 19:37 Urine WBC (Auto) 6 /HPF 08/20/19 19:37 Urine RBC (Auto) 2 /HPF 08/20/19 19:37 Squamous Epi Cells Auto 5 /HPF 08/20/19 19:37 Urine Mucus (Auto) FEW /LPF 08/20/19 19:37 Urine Ascorbic Acid 40 (NEGATIVE) H 08/20/19 19:37 Influenza A (Rapid) NEGATIVE (NEGATIVE) 08/20/19 17:34 Influenza B (Rapid) NEGATIVE (NEGATIVE) 08/20/19 17:34 08/20/19 14:21 Troponin I < 0.012 NT-Pro-B Natriuret Pep 108 Impressions: Chest X-Ray 08/20/19 14:05 IMPRESSION: NO ACUTE RADIOGRAPHIC FINDING IN THE CHEST. Plan Time Spent: Greater than 30 Minutes Stroke Is this a Stroke Patient?: No Acute Heart Failure - Is this a Heart Failure Patient?: No
== END 2019-08-22 12:45 | disposition home or self-care (01) | DRG 189 ==
LOC: ER 13:56 → EH 19:59 → OBSVTOIN 19:59 → 4S 23:13
PROVIDERS: ADMIT Internal Medicine; ATTEND Internal Medicine
DX: J96.01 Acute respiratory failure with hypoxia (principal); J44.1 Chronic obstructive pulmonary disease with (acute) exacerbation; Z68.43 Body mass index [BMI] 50.0-59.9, adult; J44.0 Chronic obstructive pulmonary disease with (acute) lower respiratory infection; G89.4 Chronic pain syndrome; F32.9 Major depressive disorder, single episode, unspecified; E78.5 Hyperlipidemia, unspecified; E03.9 Hypothyroidism, unspecified; K21.9 Gastro-esophageal reflux disease without esophagitis; E66.01 Morbid (severe) obesity due to excess calories; E78.00 Pure hypercholesterolemia, unspecified; F41.9 Anxiety disorder, unspecified; D64.9 Anemia, unspecified; Z77.22 Contact with and (suspected) exposure to environmental tobacco smoke (acute) (chronic); I25.2 Old myocardial infarction; Z79.899 Other long term (current) drug therapy; Z79.890 Hormone replacement therapy; Z85.3 Personal history of malignant neoplasm of breast
CPT/HCPCS: 36415; 71045; 80048; 80053; 81001; 82803; 83036; 83735; 83880; 84100; 84484; 85025; 87804; 93005; 93010; 94640; 96374; 99285; J1650; J2930; J3490; J7512; J7620

== ENCOUNTER → 2020-03-18 | Outpatient (CLI) | payer MEDICARE, OTHER ==
--- NOTE | 2020-03-18 12:58 | EKG REPORT ---
SEVERITY:- ABNORMAL ECG - SINUS RHYTHM CONSIDER INFERIOR INFARCT ANTERIOR INFARCT, OLD : Confirmed by: Napoleon Lamb MD 18-Mar-2020 12:58:11
[2020-03-18 13:29] LABS: ABSOLUTE EOSINOPHILS # (AUTO) 0.1 10^3/uL (0.0-0.6); ABSOLUTE LYMPHOCYTES (AUTO) 1.6 10^3/uL (0.5-4.7); ABSOLUTE MONOCYTES (AUTO) 0.5 10^3/uL (0.1-1.4); ABSOLUTE NEUT (AUTO) 3.3 10^3/uL (1.7-8.2); BASOPHILS % (AUTO) 0.7 % (0-2); EOSINOPHILS % (AUTO) 1.9 % (0-6); HEMOGLOBIN 14.8 g/dL (12.0-15.5); LYMPHOCYTES % (AUTO) 28.7 % (13-45); MEAN CORPUSCULAR HEMOGLOBIN 30.2 pg (27.0-33.4); MEAN CORPUSCULAR HGB CONC 34.3 g/dL (32.0-36.0); MEAN CORPUSCULAR VOLUME 88 fl (80-97); MONOCYTES % (AUTO) 8.7 % (3-13); PLATELET COUNT 261 10^3/uL (150-450); RED CELL DISTRIBUTION WIDTH 14.3 % (11.5-14.0); TOTAL CELLS COUNTED % (AUTO) 100 %; WHITE BLOOD COUNT 5.4 10^3/uL (4.0-10.5)
[2020-03-18 13:30] LABS: INTERNATIONAL RATION (INR) 0.87; PROTHROMBIN TIME 12.1 SEC (11.4-15.4)
[2020-03-18 13:34] LABS: APPEARANCE,URINE SLIGHTLY-CLOUDY; BILIRUBIN,URINE NEGATIVE (NEGATIVE); COLOR,URINE AMBER; GLUCOSE, URINE NEGATIVE (NEGATIVE); KETONES,URINE TRACE mg/dL (NEGATIVE); PROTEIN,URINE NEGATIVE (NEGATIVE)
--- NOTE | 2020-03-18 13:50 | RADIOLOGY REPORT (SQ) ---
EXAM DESCRIPTION: CHEST PA/LATERAL IMAGES COMPLETED DATE/TIME: 03/18/2020 1:01 pm REASON FOR STUDY: PRE-OP COMPARISON: 08/20/2019 EXAM PARAMETERS: NUMBER OF VIEWS: two views TECHNIQUE: Digital Frontal and Lateral radiographic views of the chest acquired. RADIATION DOSE: NA LIMITATIONS: none FINDINGS: LUNGS AND PLEURA: No opacities, masses or pneumothorax. No pleural effusion. MEDIASTINUM AND HILAR STRUCTURES: No masses or contour abnormalities. HEART AND VASCULAR STRUCTURES: Heart normal size. No evidence for failure. BONES: No acute findings. HARDWARE: None in the chest. OTHER: No other significant finding. IMPRESSION: NO SIGNIFICANT RADIOGRAPHIC FINDING IN THE CHEST. TECHNICAL DOCUMENTATION: JOB ID: [id number] 2010 [id number]- All Rights Reserved Reading location - IP/workstation name: [email or web address]
[2020-03-18 13:56] LABS: ANION GAP 8 (5-19); BLOOD UREA NITROGEN 9 mg/dL (7-20); C-REACTIVE PROTEIN 17.6 mg/L (<10.0); CALCIUM 9.1 mg/dL (8.4-10.2); CARBON DIOXIDE 28 mmol/L (22-30); CHLORIDE 104 mmol/L (98-107); GLUCOSE 90 mg/dL (75-110); POTASSIUM 4.4 mmol/L (3.6-5.0)
== END ==
LOC: OD 12:05
PROVIDERS: ATTEND Orthopaedic Surgery
DX: Z01.810 Encounter for preprocedural cardiovascular examination (principal); Z01.811 Encounter for preprocedural respiratory examination; Z01.812 Encounter for preprocedural laboratory examination; Z01.818 Encounter for other preprocedural examination; Z01.89 Encounter for other specified special examinations
CPT/HCPCS: 36415; 71046; 80048; 81001; 82306; 85025; 85610; 86140; 87070; 87086; 87088; 87186; 93005; 93010

== ENCOUNTER → 2020-04-19 | Outpatient (CLI) | payer MEDICARE, OTHER ==
--- NOTE | 2020-04-19 11:02 | RADIOLOGY REPORT (SQ) ---
EXAM DESCRIPTION: CHEST PA/LATERAL IMAGES COMPLETED DATE/TIME: 04/19/2020 10:29 am REASON FOR STUDY: PREE-OP COMPARISON: 03/18/2020 EXAM PARAMETERS: NUMBER OF VIEWS: two views TECHNIQUE: Digital Frontal and Lateral radiographic views of the chest acquired. RADIATION DOSE: NA LIMITATIONS: none FINDINGS: LUNGS AND PLEURA: Minimal linear left basilar opacities, likely atelectasis or scarring. No focal consolidation, pleural effusion or pneumothorax. MEDIASTINUM AND HILAR STRUCTURES: No masses or contour abnormalities. HEART AND VASCULAR STRUCTURES: Heart normal size. No evidence for failure. Vascular calcifications. BONES: Degenerative changes at the bilateral shoulders. No acute findings. HARDWARE: None in the chest. OTHER: No other significant finding. IMPRESSION: NO SIGNIFICANT RADIOGRAPHIC FINDING IN THE CHEST. TECHNICAL DOCUMENTATION: JOB ID: [id number] 2010 [employer]- All Rights Reserved Reading location - IP/workstation name: [email or web address]
[2020-04-19 11:57] LABS: APPEARANCE,URINE CLEAR; BILIRUBIN,URINE NEGATIVE (NEGATIVE); COLOR,URINE STRAW; GLUCOSE, URINE NEGATIVE (NEGATIVE); KETONES,URINE NEGATIVE (NEGATIVE); LEUKOCYTE ESTERASE,URINE SMALL (NEGATIVE); NITRITE,URINE NEGATIVE (NEGATIVE); PROTEIN,URINE NEGATIVE (NEGATIVE); URINE SPECIFIC GRAVITY 1.009; UROBILINOGEN,URINE NEGATIVE mg/dL (<2.0)
[2020-04-19 12:15] LABS: ABSOLUTE BASOPHILS # (AUTO) 0.1 10^3/uL (0.0-0.2); ABSOLUTE EOSINOPHILS # (AUTO) 0.1 10^3/uL (0.0-0.6); ABSOLUTE LYMPHOCYTES (AUTO) 1.4 10^3/uL (0.5-4.7); ABSOLUTE MONOCYTES (AUTO) 0.4 10^3/uL (0.1-1.4); BASOPHILS % (AUTO) 1.1 % (0-2); EOSINOPHILS % (AUTO) 2.3 % (0-6); HEMATOCRIT 42.5 % (36.0-47.0); HEMOGLOBIN 14.5 g/dL (12.0-15.5); LYMPHOCYTES % (AUTO) 28.6 % (13-45); MEAN CORPUSCULAR HEMOGLOBIN 30.1 pg (27.0-33.4); MEAN CORPUSCULAR VOLUME 89 fl (80-97); MONOCYTES % (AUTO) 8.4 % (3-13); PLATELET COUNT 253 10^3/uL (150-450); RED CELL DISTRIBUTION WIDTH 13.8 % (11.5-14.0); SEGMENTED NEUTROPHILS % (AUTO) 59.6 % (42-78); TOTAL CELLS COUNTED % (AUTO) 100 %
[2020-04-19 12:19] LABS: INTERNATIONAL RATION (INR) 0.94; PROTHROMBIN TIME 12.8 SEC (11.4-15.4)
[2020-04-19 12:45] LABS: ANION GAP 6 (5-19); BLOOD UREA NITROGEN 11 mg/dL (7-20); CALCIUM 9.7 mg/dL (8.4-10.2); CARBON DIOXIDE 28 mmol/L (22-30); CHLORIDE 105 mmol/L (98-107); GLUCOSE 97 mg/dL (75-110); POTASSIUM 4.8 mmol/L (3.6-5.0)
[2020-04-19 13:00] LABS: ERYTHROCYTE SEDIMENTATION RATE 15 mm/hr (0-30)
--- NOTE | 2020-04-19 16:46 | EKG REPORT ---
SEVERITY:- ABNORMAL ECG - SINUS RHYTHM PROBABLE INFERIOR INFARCT, AGE INDETERMINATE CONSIDER ANTEROSEPTAL INFARCT : Confirmed by: Samuel Rawls MD 19-Apr-2020 16:45:35
== END ==
LOC: OD 10:09
PROVIDERS: ATTEND Orthopaedic Surgery
DX: Z01.810 Encounter for preprocedural cardiovascular examination (principal); Z01.811 Encounter for preprocedural respiratory examination; Z01.812 Encounter for preprocedural laboratory examination; M19.012 Primary osteoarthritis, left shoulder; M19.011 Primary osteoarthritis, right shoulder
CPT/HCPCS: 36415; 71046; 80048; 81001; 82040; 82306; 83036; 85025; 85610; 85652; 85730; 86140; 87070; 93005; 93010

== ENCOUNTER → 2020-05-09 | Outpatient (CLI) | payer MEDICARE, OTHER ==
--- NOTE | 2020-05-09 10:54 | RADIOLOGY REPORT (SQ) ---
EXAM DESCRIPTION: CT LT UPPER EXTREMITY WITHOUT IMAGES COMPLETED DATE/TIME: 05/09/2020 8:28 am REASON FOR STUDY: M19.012 PRIMARY OSTEOARTHRITIS, LEFT SHOULDER M19.012 PRIMARY OSTEOARTHRITIS, LEF T SHOULDER COMPARISON: Chest radiograph, 04/19/2020. Chest radiograph 03/18/2020. CT chest, 01/14/2019. TECHNIQUE: Axial imaging performed through the leftshoulder with reformatted oblique coronal and obl ique sagittal imaging windowed for bone and soft tissues. All CT scanners at this facility use dose modulation, iterative reconstruction, and/or weight based d osing when appropriate to reduce radiation dose to as low as reasonably achievable (ALARA). [facility]: Dose Right [facility]: CareDose [facility]: Dose Right [facility]: Teradose 4D [facility]: [employer] Technologies RADIATION DOSE: CT Rad equipment meets quality standard of care and radiation dose reduction techniq ues were employed. CTDIvol: 27.2 mGy. DLP: 662 mGy-cm. mGy. LIMITATIONS: None. FINDINGS: SOFT TISSUES: Thickening and abnormal appearance of the subscapularis tendon suggestive of chronic tendinosis. BONY ARCHITECTURE: There is severe osteoarthritis at the glenohumeral joint with large marginal osteo phytes, subchondral sclerosis and cystic change, and osseous hypertrophy at the glenoid. 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 Normal glenoh umeral alignment. The acromioclavicular joint has normal alignment and appearance. Scapula is a belia es intact. Left clavicle and visualized left upper ribs are intact. OTHER: Minimal atelectasis in the left lower lobe. IMPRESSION: Severe osteoarthritis of the glenohumeral joint. Chronic nonunited fracture posterior g lenoid. TECHNICAL DOCUMENTATION: JOB ID: [id number] Quality ID # [id number]: Final reports with documentation of one or more dose reduction techniques (e.g., Au tomated exposure control, adjustment of the mA and/or kV according to patient size, use of iterative reconstruction technique) 2010 [employer]- All Rights Reserved Reading location - IP/workstation name: [email or web address]
== END ==
LOC: RAD 08:58
PROVIDERS: ATTEND Orthopaedic Surgery
DX: M19.012 Primary osteoarthritis, left shoulder (principal)

== ENCOUNTER 2020-05-16 05:25 | Inpatient (IN) | payer MEDICARE, OTHER ==
[~2020-05-16 05:25] MED LIST: ACETAMINOPHEN 325 MG TABLET PO PRN; CEFAZOLIN 2 GM/D5W RTU 2 GM/50 ML RTUPB IV ONE; CEFAZOLIN 2 GM/D5W RTU 2 GM/50 ML RTUPB IV PRN; CELECOXIB 200 MG CAPSULE PO PRN; GABAPENTIN 100 MG CAPSULE PO PRN; LACTATED RINGERS 1000 ML IV PRN; LIDOCAINE 0.5% INJ-PF (5 MG/ML) 50 ML SDV SUBCUT PRN; NORMAL SALINE 1000 ML (RENAL PATIENTS) IV PRN; ONDANSETRON 4 MG TAB.RAPDIS PO PRN; OXYCODONE HCL SR 10 MG TABLET PO PRN; PANTOPRAZOLE SODIUM 20 MG TABLET.DR PO PRN; SCOPOLAMINE HYDROBROMIDE 1.5 MG PATCH.TD72 TD PRN; TRANEXAMIC ACID INJ/PF 1,000 MG/10 ML SDV IV PRN; VANCOMYCIN HCL 1,000 MG in DEXTROSE 5%-WATER 250 ML IV PRN
[2020-05-16] MEDS ORDERED: LIDOCAINE 0.5% INJ-PF (5 MG/ML) 50 ML SDV ONE (06:21)
[2020-05-16] MEDS ORDERED: EPHEDRINE SULFATE INJ 50 MG/1 ML AMPULE ONE (06:23)
[2020-05-16] MEDS ORDERED: ONDANSETRON HCL INJ/PF 4 MG/2 ML SDV ONE ×2 (06:23→06:44)
[2020-05-16] MEDS ORDERED: MIDAZOLAM 2 MG/2 ML INJ ONE (06:23)
[2020-05-16] MEDS ORDERED: DEXAMETHASONE SOD PHOSPHATE INJ 4 MG/1 ML VIAL ONE (06:23)
[2020-05-16] MEDS ORDERED: TRANEXAMIC ACID INJ/PF 1,000 MG/10 ML SDV ONE (06:23)
[2020-05-16] MEDS ORDERED: FENTANYL CITRATE INJ/PF 100 MCG/2 ML AMPUL ONE (06:23)
[2020-05-16] MEDS ORDERED: PROPOFOL INJ 200 MG/20 ML VIAL IV ONE (06:24)
[2020-05-16] MEDS ORDERED: CELECOXIB 200 MG CAPSULE ONE (06:44)
[2020-05-16] MEDS ORDERED: OXYCODONE HCL SR 10 MG TABLET PO ONE (06:44)
[2020-05-16] MEDS ORDERED: GABAPENTIN 100 MG CAPSULE ONE (06:44)
[2020-05-16] MEDS ORDERED: PANTOPRAZOLE SODIUM 20 MG TABLET.DR PO ONE ×2 (06:44→11:00)
[2020-05-16] MEDS ORDERED: ACETAMINOPHEN 325 MG TABLET ONE (06:44)
[2020-05-16] MEDS ORDERED: SCOPOLAMINE HYDROBROMIDE 1.5 MG PATCH.TD72 ONE (06:44)
[2020-05-16] MEDS ORDERED: ROPIVACAINE HCL 0.5% INJ/PF (5 MG/1 ML) 30 ML SDV ONE (06:59)
[2020-05-16] MEDS ORDERED: BUPIVACAINE HCL 0.25 % INJ/PF (2.5 MG/1 ML) 30 ML VIAL ONE (07:10)
[2020-05-16] MEDS ORDERED: VANCOMYCIN HCL INJ 1000 MG VIAL ONE (07:10)
[2020-05-16] MEDS ORDERED: KETOROLAC TROMETHAMINE INJ/PF 30 MG/1 ML SDV ONE (07:11)
[2020-05-16] MEDS ORDERED: NORMAL SALINE 1000 ML 1,000 ML IV ONE (07:13)
[2020-05-16] MEDS ORDERED: ZOLPIDEM TARTRATE 5 MG TABLET PO PRN (07:13)
[2020-05-16] MEDS ORDERED: MORPHINE SULFATE 10 MG/ML INJ IV PRN ×3 (07:13→09:48)
[2020-05-16] MEDS ORDERED: DOCUSATE SODIUM 100 MG CAPSULE PO PRN (07:13)
[2020-05-16] MEDS ORDERED: DIPHENHYDRAMINE HCL 25 MG CAPSULE PO PRN (07:13)
[2020-05-16] MEDS ORDERED: OXYCODONE HCL IR 5 MG TABLET PO PRN ×3 (07:13)
[2020-05-16] MEDS ORDERED: DEXAMETHASONE SOD PHOS INJ 10 MG/1 ML VIAL IV ONE (07:13)
[2020-05-16] MEDS ORDERED: TRANEXAMIC ACID INJ/PF 1,000 MG/10 ML SDV IV ONE (07:13)
[2020-05-16] MEDS ORDERED: ONDANSETRON 4 MG TAB.RAPDIS PO PRN (07:13)
[2020-05-16] MEDS ORDERED: ALPRAZOLAM 0.5 MG TABLET PO PRN (07:17)
[2020-05-16] MEDS ORDERED: ALBUTEROL SULFATE HFA (90 MCG/PUFF) 8 GM MDI (1 MDI/ER DISP) IH PRN (07:17)
[2020-05-16] MEDS ORDERED: ALBUTEROL SULFATE HFA (90 MCG/PUFF) 8 GM MDI IH PRN (07:26)
[2020-05-16] MEDS ORDERED: ALENDRONATE SODIUM 70 MG PO SCH (07:30)
[2020-05-16] MEDS ORDERED: (PENDING PHARMACY ID) (Rosuvastatin Calcium [Crestor 20 Mg Tablet] 20 MG Tablet) PO SCH (08:00)
[2020-05-16] MEDS ORDERED: MEPERIDINE HCL/PF INJ 25 MG/1 ML DISP.SYRIN IV PRN (09:48)
[2020-05-16] MEDS ORDERED: PROMETHAZINE HCL INJ 25 MG/1 ML VIAL IV PRN ×2 (09:48)
[2020-05-16] MEDS ORDERED: FENTANYL CITRATE INJ/PF 100 MCG/2 ML AMPUL IV PRN ×3 (09:48)
[2020-05-16] MEDS ORDERED: ONDANSETRON HCL INJ/PF 4 MG/2 ML SDV IV PRN (09:48)
[2020-05-16] MEDS ORDERED: DIPHENHYDRAMINE HCL 50 MG/ML VIAL IV PRN (09:48)
--- NOTE | 2020-05-16 11:22 | Operative Report ---
Operative Report DATE OF SURGERY: 05/16/20 PREOPERATIVE DIAGNOSIS: Left shoulder primary osteoarthritis POSTOPERATIVE DIAGNOSIS: Left shoulder primary osteoarthritis OPERATION: Left total shoulder arthroplasty, navigated SURGEON: RON ALONZO JR ANESTHESIA: GA - With regional block COMPLICATIONS: none ESTIMATED BLOOD LOSS: 300 cc PROCEDURE: The patient was brought to the operating suite and laid supine on the operating table. 2 g of Ancef and 1 g of vancomycin were provided preoperatively. The patient was placed under general anesthesia. They were positioned on a standard table in a beachchair fashion. The patients left upper extremity was prepped and draped in standard sterile fashion. A timeout was performed. The incision was marked and started through the standard anterior deltopectoral approach. The cephalic vein was identified and taken laterally with the deltoid. Atraumatic retractors were placed underneath the deltoid both near its insertion as well as superiorly. The biceps tendon was identified in its groove which was then opened and followed superiorly to its base with curved scissors. A tenodesis was performed through the superior aspect of the pectoralis insertion with #1 Ethibond, and the remaining biceps was resected. The subscap was then released underneath the conjoined tendon and the superior border was identified followed by the inferior border. We then performed a lesser tuberosity osteotomy with a large flat osteotome. Two #2 FiberWire sutures were placed for retention at this point the upper extremity was externally rotated abducted and extended to dislocate and present the humeral head. While doing this the inferior capsule was released carefully while paying attention to avoid any encounter with the axillary nerve. A reamer was placed superiorly and reamed up until we reached a #14. We then placed a cutting guide and cut the arthritic humeral head at approximately 20 degrees retroversion.. The inferior osteophytes were rongeured to metaphyseal bone. We then broached up to a #14 broach and then irrigated the cut surface and the humeral canal. 3 drill holes were made into the bicipital groove and a #2 FiberWire and #2 Ethibond sutures were looped through these holes and snapped prior to impaction of the implant. The wound was copiously irrigated with dilute Betadine solution. We then placed the final #14 implant. At this point we turned our attention to the glenoid. The subscap was placed under tension and a capsulotomy of the anterior capsule was performed carefully in order to avoid entering the muscle belly but releasing the subscap from the capsule in order to allow for excursion. After achieving this a Bankart retractor was placed anterior and a Emmanuel retractor was placed posteriorly. This provided adequate exposure to the glenoid. We debrided the periphery of the glenoid removing labrum both anteriorly and posteriorly as well as the biceps tendon. The coracoid was then exposed as well and the G tracker from the navigation set was placed onto the coracoid. Following this the glenoid was registered with the software using the P tracker. We then proceeded with a center drill hole as navigated by the computer. This appeared to be ideal upon visual inspection. Reaming was performed under navigation. The glenoid guide was placed in the drill holes were then oriented to the glenoid and drilled. We checked the depths to ensure that there was no cortical breach. A trial was placed and found not to have any rock and appropriate orientation. We then washed and irrigated thoroughly followed by cementation of the peg holes. According to our preoperative planning we proceeded with a left medium 9 degree posterior augmented cage glenoid. We placed morselized bone graft in the center peg of the glenoid component as well as and the center of the bony glenoid. This was then impacted into place. Excess cement was removed. We held pressure here until the cement was hardened. We then removed all retractors and return to the humeral side. A 44 head was sized and chosen and the orientation was selected based on appropriate rotation for ideal coverage. After trialing we decided to go with a plus offset, 1.5 mm. The breakaway torque screw was then adequately torqued. We then irrigated and cleaned the trunnion followed by impacting the final head and the appropriate orientation as selected previously. This was again taken through a trial range of motion and found to have ideal tension and stability. The Ethibond and FiberWire loops from the bicipital groove were then tied to the FiberWire's through the lesser tuberosity. After these were secured they were then tightened by pulling on the intramedullary portions and then tied down. Excess suture was removed aside from the 2 FiberWire needles which had substantial length. These were then taken through and closed over the rotator interval. We took the arm through range of motion and found this repair to be ideal without any micromotion. The wound was copiously irrigated and a Betadine soak was performed. After thorough suctioning 1 g of vancomycin was applied to the wound at this time. The deltopectoral interval was closed with 2-0 PDS in a running fashion. The subcutaneous adipose layer was closed with 2-0 Monocryl in a running locked fashion. The skin was closed with 2-0 Quill running fashion. A silver dressing was then placed onto a clean and dried wound. The patient was then placed in a abduction shoulder immobilizer, awakened from anesthesia, and transferred to the PACU in stable condition.
--- NOTE | 2020-05-16 11:41 | RADIOLOGY REPORT (SQ) ---
EXAM DESCRIPTION: SHOULDER LEFT 1 VIEW IMAGES COMPLETED DATE/TIME: 05/16/2020 11:33 am REASON FOR STUDY: post op COMPARISON: None. TECHNIQUE: Single AP view of left shoulder were submitted. LIMITATIONS: None. FINDINGS: There are postsurgical changes in left shoulder with total joint replacement noted. No un expected findings. IMPRESSION: No unexpected finding status post total left shoulder replacement. TECHNICAL DOCUMENTATION: JOB ID: [id number] 2010 [employer]- All Rights Reserved Reading location - IP/workstation name: [email or web address]
--- NOTE | 2020-05-16 13:46 | Discharge Summary ---
Discharge Summary (SDC) - Discharge Final Diagnosis: Left total shoulder replacement, anatomic. Date of Surgery: 05/16/20 Discharge Date: 05/16/20 Condition: Stable Treatment or Instructions: Full details of postoperative instructions have been provided to the patient in the clinic. Additionally they should maintain their bandage in place for 10 days, and then changed to a dry dressing. They can take showers with this occlusive dressing but any further dressing should also be occlusive. No showers with the wound unprotected until cleared by me in the clinic. If the bandage falls off early or become saturated they can change as needed to another occlusive dressing. They are to remain nonweightbearing left upper extremity, continue in sling often as possible aside from occasionally removing multiple times a day to perform nonweightbearing pendulum exercises. This has been described in detail and a handout has been provided to her. Postoperative prescriptions were provided preoperatively. Follow-up with Dr. Surjit Hogue, orthopedic surgeon at [facility] for surgery, in 10 days. Call for an appointment. . [address], [place] [address] Referrals: SHANICE MCCOLLUM PA-C [Primary Care Provider] - Respiratory Treatments at Home: Deep Breathing/Coughing Discharge Activity: Activity As Tolerated, No Driving, No Lifting/Push/Pulling Activities Provided by Home Health Agency: Physical Therapy Report the Following to Your Physician Immediately: Shortness of Breath, Fever over 101 Degrees, Unusual Bleeding, Drainage-Yellow, Drainage-Foul Smelling
[2020-05-16] MEDS ORDERED: TAPENTADOL HCL 100 MG PO SCH (14:00)
[2020-05-16] MEDS ORDERED: CEFAZOLIN 2 GM/D5W RTU 2 GM/50 ML RTUPB IV SCH (14:00)
[2020-05-16] MEDS ORDERED: SUCCINYLCHOLINE CHLORIDE INJ 200 MG/10 ML VIAL ONE (16:39)
[2020-05-16] MEDS ORDERED: PHENYLEPHRINE HCL INJ/PF 10 MG/1 ML SDV ONE (16:39)
[2020-05-16] MEDS ORDERED: ALBUTEROL SULFATE HFA (90 MCG/PUFF) 8 GM MDI IH ONE (16:39)
[2020-05-16] MEDS: KETOROLAC TROMETHAMINE INJ/PF 30 MG/1 ML SDV IV SCH ×2 (17:12→23:18)
[2020-05-16] MEDS: ACETAMINOPHEN 325 MG TABLET PO SCH ×2 (17:13→17:25)
[2020-05-16] MEDS: CEFAZOLIN SODIUM 2 GM in DEXTROSE 5%-WATER 100 ML IV SCH ×2 (17:14→22:51)
[2020-05-16] MEDS: GABAPENTIN 100 MG CAPSULE PO SCH (17:25)
[2020-05-16] MEDS ORDERED: VENLAFAXINE HCL 75 MG TABLET PO SCH (18:00)
[2020-05-16] MEDS ORDERED: FUROSEMIDE 40 MG TABLET PO SCH (18:00)
[2020-05-16] MEDS: TRAMADOL HCL 50 MG TABLET PO PRN (18:06)
[2020-05-16] MEDS ORDERED: ATORVASTATIN CALCIUM 40 MG TABLET PO SCH (22:00)
[2020-05-16] MEDS ORDERED: ARIPIPRAZOLE 5 MG TABLET PO SCH (22:00)
[2020-05-16] MEDS ORDERED: ARIPIPRAZOLE 15 MG PO SCH (22:00)
[2020-05-16] MEDS ORDERED: (PENDING PHARMACY ID) (Zolpidem Tartrate [Ambien] 10 MG Tablet) PO SCH (22:00)
[2020-05-17] MEDS: ACETAMINOPHEN 325 MG TABLET PO SCH ×2 (00:06→05:40)
[2020-05-17] MEDS: OXYCODONE HCL IR 5 MG TABLET PO PRN ×2 (00:16→08:15)
[2020-05-17] MEDS: TRAMADOL HCL 50 MG TABLET PO PRN (03:13)
[2020-05-17] MEDS: GABAPENTIN 100 MG CAPSULE PO SCH (05:40)
[2020-05-17] MEDS: KETOROLAC TROMETHAMINE INJ/PF 30 MG/1 ML SDV IV SCH (05:40)
[2020-05-17] MEDS ORDERED: LEVOTHYROXINE SODIUM 0.075 MG TABLET PO SCH (06:00)
--- NOTE | 2020-05-17 08:06 | PDOC PROGRESS REPORT ---
Subjective Date:: 05/17/20 Subjective:: Patient is doing well this morning. Pain is well controlled. No acute events o vernight. Improvement in sensation after scalene block. Reason For Visit: TOTAL SHOULDER ARTHROPLASTY Physical Exam Vital Signs: Temp Pulse Resp BP Pulse Ox 97.9 F 77 18 117/71 93 05/17/20 01:45 05/17/20 01:45 05/17/20 01:45 05/17/20 01:45 05/17/20 01:45 Intake & Output 05/16/20 05/17/20 05/18/20 06:59 06:59 06:59 Intake Total 2058 Output Total 2058 Balance 0 Weight 117.8 kg Physical Exam: No acute distress, alert and orient x3 Left Upper extremity sensation grossly intact to radial median and ulnar nerve. upper extremity motor function grossly intact to radian median ulnar nerve AIN and PIN Pulses 2+, capillary refill less than 2 seconds No deformity noted full range of motion of the elbow shoulder wrist and fingers without pain Compartments soft, no tenderness to palpation She has active of the axillary nerve with the deltoid, has sensation to the axillary nerve distribution Incision is clean dry and intact Results Laboratory Results: 05/16/20 06:22 Impressions: Shoulder X-Ray 05/16/20 00:00 IMPRESSION: No unexpected finding status post total left shoulder replacement. Assessment & Plan - Diagnosis (1) Status post total replacement of left shoulder Is this a current diagnosis for this admission?: Yes Plan: The patient brought to my attention today that they had seen the pain management doctor who is changed the number of the postoperative medications obey t I provided. They removed some and altered the others. At this point I will defer to that her pain management provider for post operative pain control - NWB LUE, avoid external rotation - Sling for comfort - PT to see patient today to explain PROM and pendulum exercises - DC home today - ASA for DVT ppx - Follow in my office in ~10 days - Time Time Spent with patient: Less than 15 minutes
[2020-05-17 08:48] VITALS: BP 127/75
[2020-05-17] MEDS ORDERED: POLYETHYLENE GLYCOL 3350 POWDER 17 GM/1 PACKET PO SCH (10:00)
[2020-05-17] MEDS ORDERED: ASPIRIN 325 MG TABLET PO SCH (10:00)
[2020-05-18] MEDS ORDERED: CELECOXIB 200 MG CAPSULE PO SCH (10:00)
== END 2020-05-17 09:30 | disposition home health service (06) | DRG 483 ==
LOC: INOR 05:25 → INTOOBSV 05:25 → EDSTATUS 07:30 → 4S 16:45 → OBSVTOIN 05-17 07:50
PROVIDERS: ADMIT Orthopaedic Surgery; ATTEND Orthopaedic Surgery
PROC: 0RRK0JZ Replacement of Left Shoulder Joint with Synthetic Substitute, Open Approach (ICD-10-PCS; principal; 2020-05-17)
DX: M25.512 Pain in left shoulder (principal); Z68.43 Body mass index [BMI] 50.0-59.9, adult; G89.4 Chronic pain syndrome; E03.9 Hypothyroidism, unspecified; I10 Essential (primary) hypertension; Z20.828 Contact with and (suspected) exposure to other viral communicable diseases; F32.9 Major depressive disorder, single episode, unspecified; E66.01 Morbid (severe) obesity due to excess calories; M25.712 Osteophyte, left shoulder; Z79.899 Other long term (current) drug therapy; Z79.82 Long term (current) use of aspirin; Z79.890 Hormone replacement therapy; Z79.891 Long term (current) use of opiate analgesic
CPT/HCPCS: 01638; 36415; 64415; 76942; 84132; 86850; 86900; 86901; 87635; C1713; C1776; C9803; G0378; J0330; J0690; J1100; J1885; J2250; J2370; J2405; J2704; J2795; J3010; J3370; J3490; J7060

== ENCOUNTER 2020-07-02 23:36 | Inpatient (IN) | payer MEDICARE, OTHER ==
[2020-07-03 00:37] LABS: ABSOLUTE LYMPHOCYTES (AUTO) 0.7 10^3/uL (0.5-4.7); ABSOLUTE MONOCYTES (AUTO) 0.5 10^3/uL (0.1-1.4); BASOPHILS % (AUTO) 0.4 % (0-2); HEMATOCRIT 41.1 % (36.0-47.0); HEMOGLOBIN 13.7 g/dL (12.0-15.5); LYMPHOCYTES % (AUTO) 13.6 % (13-45); MEAN CORPUSCULAR HEMOGLOBIN 28.1 pg (27.0-33.4); MEAN CORPUSCULAR HGB CONC 33.4 g/dL (32.0-36.0); MEAN CORPUSCULAR VOLUME 84 fl (80-97); PLATELET COUNT 158 10^3/uL (150-450); RED BLOOD COUNT 4.88 10^6/uL (3.72-5.28); RED CELL DISTRIBUTION WIDTH 13.7 % (11.5-14.0); TOTAL CELLS COUNTED % (AUTO) 100 %; WHITE BLOOD COUNT 5.2 10^3/uL (4.0-10.5)
--- NOTE | 2020-07-03 00:45 | ER Document Report ---
ED General - General Chief Complaint: Possible Overdose Stated Complaint: ALTERED MENTAL STATUS Time Seen by Provider: 07/03/20 00:20 Primary Care Provider: SHANICE MCCOLLUM PA-C [Primary Care Provider] - Follow up as needed TRAVEL OUTSIDE OF THE [place] IN LAST 30 DAYS: No - HPI Context: Chief Complaint: Altered mental status [64-year-old female presents to the emergency department for evaluation because her told EMS that she thought her was acting differently than normal. The and EMS suggested may be the patient took too much of her Ambien or other medications but no bottles were brought with the patient to the emergency department to be checked. This MD checked the [place] controlled substances database and noted that the patient picks up prescriptions for oxycodone basically every month and last picked up a prescription for 0.5 mg of Xanax on 12/17/2019. I did not see any prescriptions for Ambien or zolpidem on the database. Patient has a extensive medical history including COPD, opioid dependence, encephalopathy, acute respiratory failure. ] History obtained from [patient's , EMS] Symptoms began:[Couple hours prior to arrival] Onset: [Gradual] Timing: [Gradual] Quality: [Patient unable to elaborate] Intensity: [Patient denies pain] Location: [N/A] Radiation: [N/A] [The pain does not migrate to a new location.] Aggravating factors: [none] Relieving factors: [none] [Denies] SOB [Denies] nausea [Denies] vomiting [Denies] sweats [Denies] fever [Denies] cough [Denies] calf or leg swelling or pain - Related Data Allergies/Adverse Reactions: No Known Allergies Allergy (Verified 02/26/18 14:39) Past Medical History - General Information source: Patient - Social History Smoking Status: Current Every Day Smoker Family History: Reviewed & Not Pertinent, COPD, DM, Malignancy - Thyroid cancer, Other - Alzheimer's disease. denies: Arthritis, CAD, Hypertension - Past Medical History Cardiac Medical History: Reports: Hx Congestive Heart Failure, Hx Heart Attack - 20YRS AGO, Hx Hypercholesterolemia, Hx Hypertension Denies: Hx Atrial Fibrillation, Hx Coronary Artery Disease, Hx DVT, Hx Periph eral Vascular Disease, Hx Pulmonary Embolism, Hx Heart Murmur Pulmonary Medical History: Reports: Hx Bronchitis, Hx COPD, Hx Pneumonia Denies: Hx Asthma, Hx Respiratory Failure, Hx Sleep Apnea, Hx Tuberculosis Neurological Medical History: Endocrine Medical History: Reports: Hx Hypothyroidism. Denies: Hx Diabetes Mellitus Type 1, Hx Diabetes Mellitus Type 2, Hx Graves' Disease, Hx Hyperthyroidism Renal/ Medical History: Malignancy Medical History: Denies: Hx Leukemia, Hx Lung Cancer GI Medical History: Reports: Hx Gastroesophageal Reflux Disease. 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 Denies: Hx Appendectomy, Hx Bowel Surgery, Hx Colostomy, Hx Coronary Artery Bypass Graft, Hx Hysterectomy, Hx Mastectomy, Hx Pacemaker, Hx Tonsillectomy - Immunizations Hx Pneumococcal Vaccination: 06/17/16 Review of Systems - Review of Systems Notes: Review of systems as below unless otherwise stated in HPI. CONSTITUTIONAL [No] fever, [No] chills. EYES [No] eye pain. ENT [No] URI symptoms, [No] sore throat, [No] ear pain. CARDIOVASCULAR [No] chest pain, [No] palpitations, [No] edema. RESPIRATORY [No] Cough, [No] SOB, [No] wheezing. GASTROINTESTINAL [No] abdominal pain, [No] nausea, [No] Diarrhea, [No] Vomiting, [No] constipation, [No] melena, [No] rectal bleeding. GENITOURINARY [No] dysuria, [No] urinary frequency, [No] hematuria, [No] urinary urgency, [No] vaginal discharge, [No] vaginal bleeding. MUSCULOSKELETAL [No] Back pain. SKIN [No] Rash. NEUROLOGIC [No] Headache, [No] recent seizures, [No] paralysis,[No] parathesias. ENDOCRINE [No] polyuria. HEMO/LYMPATIC [No] easy brusing PSYCHIATRIC [No] depression. Physical Exam - Vital signs Vitals: Resp 17 07/02/20 23:52 - Notes Notes: CONSTITUTIONAL [Vital signs reviewed, Patient appears comfortable, patient is alert and responds to questions with short grunts, Normal stature. Morbidly obese] HEAD [Atraumatic, Normocephalic.] EYES [Eyes are normal to inspection, No discharge from eyes, Extraocular muscles intact, Sclera are normal, Conjunctiva are normal.] ENT [External ears normal to inspection, Nose examination normal, Mouth normal to inspection.] NECK [Normal ROM, No jugular venous distention, No meningeal signs, ] RESPIRATORY CHEST [Chest is nontender, Breath sounds normal, No respiratory distress.] CARDIOVASCULAR [RRR, No murmurs, Normal S1 S2, No rub, No gallop.] ABDOMEN [Abdomen is nontender, No pulsatile masses, No other masses, Bowel sounds normal, No distension, No peritoneal signs, No hernias.] BACK [There is no CVA Tenderness, There is no tenderness to palpation, Normal inspection.] UPPER EXTREMITY [Inspection normal, No cyanosis, No clubbing, No edema, LOWER EXTREMITY [Inspection normal, No cyanosis, No clubbing, No edema, No calf tenderness, NEURO [No focal motor deficits, No focal sensory deficits, pt answers questions with short grunts.] SKIN [Skin is warm, Skin is dry, Skin is normal color.] PSYCHIATRIC [flat affect. ] Course - Re-evaluation Re-evalutation: 07/03/20 06:24 Differential diagnosis: Overdose accidental versus intentional, CVA, encephalopathy, UTI, electrolyte abnormality, opioid abuse Medical decision making: The patient has remained awake and alert during her entire stay in the emergency department. While she still grunts when asked questions, she does seem to comprehend what is being discussed with her. She does not appear toxic. Her mentation does not appear altered and she certainly does not appear encephalopathic. There is no evidence of a opioid overdose given that the urine drug screen is negative for opioids in the acetaminophen level is less than 10. Patient has not shown any type of persistent or excessive somnolence that would be consistent with an Ambien overdose. Reza davis's drug screen is positive for benzodiazepines but again she has not acted altered or excessively sedated. The last time she filled her Xanax was in December 2019. The only real abnormality that is coming up on her evaluation is that she does have a urinary tract infection and she is slightly hypokalemic. Given that there are no other acute findings in terms of clinical presentation or lab and imaging evaluation, plan at this time will be to give the patient a dose of Rocephin for UTI, a prescription for Macrobid, a dose of potassium orally now and discharge the patient home. - Vital Signs Vital signs: Temp Pulse Resp BP Pulse Ox 23 H 139/58 H 97 07/03/20 04:00 07/03/20 02:01 07/03/20 04:00 - Laboratory Results Result Diagrams: 07/03/20 00:26 07/03/20 00:26 Laboratory Results Interpreted: 07/03/20 07/03/20 00:26 02:33 Potassium 3.3 L Carbon Dioxide 32 H Calcium 8.1 L AST 62 H Urine Protein 30 H Urine Ketones 80 H Urine Urobilinogen 4.0 H Ur Leukocyte Esterase TRACE H Urine Ascorbic Acid 20 H Salicylates < 1.0 L Acetaminophen < 10 L Critical Laboratory Results Reviewed: No Critical Results Attending or Supervising Physician who Reviewed Labs: ASHISH PANIAGUA IV - Radiology Results Critical Radiology Results Reviewed: No Critical Results Attending or Supervising Physician who Reviewed Radiology: ASHISH PANIAGUA IV - EKG Interpretation by Me Additional EKG results interpreted by me: 07/03/20 00:36 EKG obtained on 07/03/2020 at 00 29 hours was interpreted by this MD. Findings: Normal sinus rhythm, rate 81, normal axis, significant baseline artifact is present and P waves are not visualized but RR interval appears regular. QRS complex appears narrow. QTc is 465. There are no obvious patterns of ST elevation, depression or reciprocal changes seen to suggest acute myocardial ischemia or infarction. When compared to previous EKG from 04/19/2020, there is very minimal baseline artifact and P waves are present and proceed QRS complexes. Other than the difference in baseline artifact, the gross morphology of the 2 EKGs appears very similar. Impression: Normal sinus rhythm with nonspecific ST-T segments. Discharge - Discharge Clinical Impression: Hypokalemia UTI (urinary tract infection) Qualifiers: Urinary tract infection type: site unspecified Hematuria presence: without hematuria Qualified Code(s): N39.0 - Urinary tract infection, site not specified Condition: Stable Disposition: HOME, SELF-CARE Instructions: Urinary Tract Infection ([facility]) Additional Instructions: Return to the Emergency Department without delay if any worse. HOME CARE INSTRUCTIONS & INFORMATION: Thank you for choosing us for your medical needs. We hope you're satisfied with the care you received. After you leave, you must properly care for your problem and, at the same time, observe its progress. Any condition can change. Some illnesses can change rapidly over hours or days. If your condition worsens, return to the Emergency Department or see your physician promptly. ABOUT YOUR X-RAYS AND EKG'S: If you had an EKG or X-rays taken, they have been read by the Emergency Physician. The X-rays and EKG's will also be read by a Radiologist or Senior Controls Analyst within 24 hours. If discrepancies are noted, you will be notified by telephone. Please be certain the ED has a correct telephone number & address where you can be reached. Also, realize that some fractures or abnormalities do not show up on initial X-rays. If your symptoms continue, see your physician. ABOUT YOUR LABORATORY TEST: If you had laboratory tests, the results have been reviewed by the Emergency Physician. Some test results (for example cultures) may not be available for several days. You will be contacted if any test result shows you need additional treatment. Please be certain the ED has a correct telephone number and address where you can be reached. ABOUT YOUR MEDICATIONS: You will receive instructions on how to take your medicine on the prescription label you receive. Additional information may be provided by the Pharmacy. If you have questions afterwards, call the ED for clarification or further instructions. Some prescribed medications may cause drowsiness. Do not perform tasks such as driving a car or operating machinery without consulting your Pharmacist. If you feel you need a refill of pain medication, your condition will need re-evaluation. Please do not call for a refill of any medication. ABOUT YOUR SIGNATURE: Signature of this document acknowledges to followin. Understanding that you received emergency treatment and that you may be released before al medical problems are known or treated. Please be certain the ED has a correct phone number & address where you can be reached. 2. Acknowledgement that you will arrange for follow-up care as recommended. 3. Authorization for the Emergency Physician to provide information to your follow-up Physician in order to maximize your care. AT ANY TIME, IF YOUR SYMPTOMS CHANGE SIGNIFICANTLY OR WORSEN OR YOU DEVELOP NEW SYMPTOMS, RETURN TO THE EMERGENCY DEPARTMENT IMMEDIATELY FOR RE-EVALUATION. OUR GOAL IS TO PROVIDE EXCELLENT MEDICAL CARE! WE HOPE THAT WE HAVE MET YOUR EXPECTATIONS DURING YOUR EMERGENCY DEPARTMENT VISIT AND THAT YOU FEEL YOU HAVE RECEIVED EXCELLENT CARE! Prescriptions: Nitrofurantoin Monohyd/M-Cryst [Macrobid 100 mg Capsule] 100 mg PO BID 7 Days #14 cap Referrals: SHANICE MCCOLLUM PA-C [Primary Care Provider] - Follow up as needed
[2020-07-03 00:58] LABS: ALBUMIN 3.7 g/dL (3.5-5.0); ALKALINE PHOSPHATASE 103 U/L (38-126); ANION GAP 8 (5-19); ASPARTATE AMINO TRANSFERASE 62 U/L (14-36); BILIRUBIN,DIRECT 0.4 mg/dL (0.0-0.4); BILIRUBIN,TOTAL 1.2 mg/dL (0.2-1.3); BLOOD UREA NITROGEN 9 mg/dL (7-20); CALCIUM 8.1 mg/dL (8.4-10.2); CARBON DIOXIDE 32 mmol/L (22-30); CHLORIDE 103 mmol/L (98-107); GLUCOSE 105 mg/dL (75-110); POTASSIUM 3.3 mmol/L (3.6-5.0); TOTAL PROTEIN 6.3 g/dL (6.3-8.2)
[2020-07-03 00:59] LABS: ACETAMINOPHEN < 10 ug/mL (10-30); ALCOHOL < 10 mg/dL (NONE DETECTED); SALICYLATE < 1.0 mg/dL (2.0-20.0)
[2020-07-03 02:47] LABS: APPEARANCE,URINE SLIGHTLY-CLOUDY; BILIRUBIN,URINE NEGATIVE (NEGATIVE); COLOR,URINE YELLOW; GLUCOSE, URINE NEGATIVE (NEGATIVE); KETONES,URINE 80 mg/dL (NEGATIVE); LEUKOCYTE ESTERASE,URINE TRACE (NEGATIVE); NITRITE,URINE NEGATIVE (NEGATIVE); PROTEIN,URINE 30 mg/dL (NEGATIVE); URINE SPECIFIC GRAVITY 1.015
[2020-07-03 02:59] LABS: URINE AMPHETAMINES SCREEN NEGATIVE; URINE BARBITURATES SCREEN NEGATIVE; URINE COCAINE SCREEN NEGATIVE; URINE MARIJUANA (THC) SCREEN NEGATIVE; URINE METHADONE SCREEN NEGATIVE; URINE PHENCYCLIDINE SCREEN NEGATIVE
[2020-07-03 03:16] LABS: URINE BENZODIAZEPINES SCREEN UNCONFIRMED POSITIVE
--- NOTE | 2020-07-03 04:41 | RADIOLOGY REPORT (SQ) ---
CLINICAL HISTORY: ams COMPARISON: None. TECHNIQUE: CT HEAD WITHOUT IV CONTRAST on 07/03/2020 2:33 AM MEAT SPECIALIST This exam was performed according to our departmental dose-optimization program, which includes automated exposure control, adjustment of the mA and/or kV according to patient size and/or use of iterative reconstruction technique. FINDINGS: There is no acute hemorrhage, mass effect or midline shift. De-white differentiation is preserved. There is no hydrocephalus. There is no significant volume loss for age. The calvarium is intact. Orbits and globes are unremarkable. The paranasal sinuses are clear. Mastoid air cells are clear. IMPRESSION: No acute intracranial findings.
[2020-07-03] MEDS ORDERED: NORMAL SALINE 500 ML IV ONE (05:40)
[2020-07-03] MEDS ORDERED: POTASSIUM CHLORIDE 10 MEQ TABLET.ER PO ONE (05:40)
[2020-07-03] MEDS ORDERED: CEFTRIAXONE INJ 1000 MG VIAL IV ONE (05:40)
[2020-07-03] MEDS ORDERED: DEXAMETHASONE SOD PHOS INJ 10 MG/1 ML VIAL IV ONE (08:02)
--- NOTE | 2020-07-03 08:22 | RADIOLOGY REPORT (SQ) ---
EXAM DESCRIPTION: CHEST SINGLE VIEW IMAGES COMPLETED DATE/TIME: 07/03/2020 8:05 am REASON FOR STUDY: tachypnea COMPARISON: 04/19/2020 EXAM PARAMETERS: NUMBER OF VIEWS: One view. TECHNIQUE: Single frontal radiographic view of the chest acquired. RADIATION DOSE: NA LIMITATIONS: Patient positioning. FINDINGS: LUNGS AND PLEURA: Relative elevation of the right hemidiaphragm with right lung base atele ctasis. No focal consolidation, large pleural effusion, or pneumothorax. MEDIASTINUM AND HILAR STRUCTURES: No masses. Contour normal. HEART AND VASCULAR STRUCTURES: Heart normal in size. Normal vasculature. BONES: Interval left shoulder arthroplasty. HARDWARE: None in the chest. OTHER: No other significant finding. IMPRESSION: No discrete radiographic evidence of acute cardiopulmonary abnormality. TECHNICAL DOCUMENTATION: JOB ID: [id number] 2010 [employer]- All Rights Reserved Reading location - IP/workstation name: [email or web address]
[2020-07-03 14:29] LABS: ABSOLUTE LYMPHOCYTES (AUTO) 0.3 10^3/uL (0.5-4.7); ABSOLUTE MONOCYTES (AUTO) 0.2 10^3/uL (0.1-1.4); ABSOLUTE NEUT (AUTO) 3.2 10^3/uL (1.7-8.2); BASOPHILS % (AUTO) 0.4 % (0-2); HEMATOCRIT 40.4 % (36.0-47.0); HEMOGLOBIN 13.4 g/dL (12.0-15.5); LYMPHOCYTES % (AUTO) 9.4 % (13-45); MEAN CORPUSCULAR HEMOGLOBIN 27.8 pg (27.0-33.4); MEAN CORPUSCULAR HGB CONC 33.2 g/dL (32.0-36.0); MEAN CORPUSCULAR VOLUME 84 fl (80-97); MONOCYTES % (AUTO) 4.4 % (3-13); RED BLOOD COUNT 4.82 10^6/uL (3.72-5.28); RED CELL DISTRIBUTION WIDTH 13.4 % (11.5-14.0); SEGMENTED NEUTROPHILS % (AUTO) 85.8 % (42-78); TOTAL CELLS COUNTED % (AUTO) 100 %; WHITE BLOOD COUNT 3.7 10^3/uL (4.0-10.5)
[2020-07-03 14:43] LABS: ALBUMIN 3.4 g/dL (3.5-5.0); ALKALINE PHOSPHATASE 101 U/L (38-126); ANION GAP 8 (5-19); ASPARTATE AMINO TRANSFERASE 64 U/L (14-36); BILIRUBIN,DIRECT 0.5 mg/dL (0.0-0.4); BILIRUBIN,TOTAL 0.8 mg/dL (0.2-1.3); BLOOD UREA NITROGEN 8 mg/dL (7-20); C-REACTIVE PROTEIN 39.4 mg/L (<10.0); CARBON DIOXIDE 27 mmol/L (22-30); CHLORIDE 106 mmol/L (98-107); CREATINE KINASE 368 U/L (30-135); GLUCOSE 124 mg/dL (75-110); POTASSIUM 3.8 mmol/L (3.6-5.0)
[2020-07-03 14:50] LABS: TROPONIN I 0.02 ng/mL
[2020-07-03 14:53] LABS: PLATELET COUNT 145 10^3/uL (150-450)
[2020-07-03] MEDS ORDERED: MAG HYDROX/AL HYDROX/SIMETH SUSP 30 ML UDCUP PO PRN (16:17)
[2020-07-03] MEDS ORDERED: ACETAMINOPHEN 325 MG TABLET PO PRN (16:17)
[2020-07-03] MEDS ORDERED: ONDANSETRON HCL INJ/PF 4 MG/2 ML SDV IV PRN (16:17)
[2020-07-03] MEDS ORDERED: NORMAL SALINE 1000 ML 1,000 ML IV PRN (16:17)
[2020-07-03] MEDS ORDERED: DEXTROSE 5%-NORMAL SALINE 1,000 ML with POTASSIUM CHLORIDE 20 MEQ IV PRN ×2 (16:32)
[2020-07-03] MEDS ORDERED: LEVOTHYROXINE SODIUM INJ/PF 0.1 MG SDV IV ONE (16:36)
[2020-07-03] MEDS ORDERED: ALBUTEROL SULFATE HFA (90 MCG/PUFF) 8 GM MDI IH PRN (16:39)
--- NOTE | 2020-07-03 16:42 | PSYCHOLOGICAL NOTE ---
Psych Note - Psych Note Date seen by psych provider: 07/03/20 Time seen by psych provider: 10:00 Psych Note: Reason for Consulted: AMS/possible overdose/substance abuse Patient is unable to engage in evaluation at this time do to AMS. There is reported concern the patient has been misusing her prescription medications. Once the patient is medically stable; please contact the behavioral health team if concerns for AMS,overdose and/or substance abuse continues.
--- NOTE | 2020-07-03 16:57 | PDOC H&P ---
History of Present Illness Admission Date/PCP: SHANICE MCCOLLUM PA-C Patient complains of: Altered mental status History of Present Illness: PAULINE BOSCH is a 70 year old female with history of depression on antidepressants and Ambien, anxiety disorder on Xanax, fibromyalgia on Percocet, hypothyroidism, asthma, who was brought in to the hospital via EMS for e valuation of altered mental status. History obtained from patient's . Notably patient had been in her usual state of health until last night. At the time, patient's noted her to be blankly staring into space while sitting on the toilet. He did not note any muscle weakness or anything. He talked to her but she would not respond. He denies noticing any unusual limb movements. He denies any prior episodes of such situation. He did states that he saw an empty bottle of Percocet close to her bed but on further evaluation he noted that this bottle was a pill bottle from March. He was not able to find the bottles from her recent prescription on 06/16. He did note patient's grandchildren had tested positive for Covid this past Saturday. EMS rapid test was positive for Covid. Patient received ceftriaxone in the ER. Noted to not have shown improvement in several hours now. Past Medical History Cardiac Medical History: Reports: Congestive Heart Failure, Myocardial Infarction - 20YRS AGO, Hyperlipidema, Hypertension Denies: Atrial Fibrillation, Coronary Artery Disease, DVT, Peripheral Vascular Disease, Pulmonary Embolism, Heart Murmur Pulmonary Medical History: Reports: Bronchitis, Chronic Obstructive Pulmonary Disease (COPD), Pneumonia Denies: Asthma, Respiratory Failure, Sleep Apnea, Tuberculosis Neurological Medical History: Endocrine Medical History: Reports: Hypothyroidism Denies: Diabetes Mellitus Type 1, Diabetes Mellitus Type 2, Hyperthyroidism Renal/ Medical History: Malignancy Medical History: Denies: Leukemia, Lung Cancer GI Medical History: Reports: Gastroesophageal Reflux Disease Denies: Cirrhosis, Crohn's Disease, Hepatitis, Hiatal Hernia, Ulcerative Colitis Musculoskeltal Medical History: Reports: Arthritis, Fibromyalgia Denies: Gout Skin Medical History: Denies: Eczema, Psoriasis Psychiatric Medical History: Reports: Depression Denies: Bipolar Disorder, Post Traumatic Stress Disorder Hematology: Reports: Anemia Denies: Hemophilia, Sickle Cell Disease, Bleeding Tendencies Infectious Medical History: Denies: HIV Past Surgical History Past Surgical History: Reports: Section, Cholecystectomy, Gastric Bypass Surgery, Herniorrhaphy - WITH MESH UMBILICAL, Tubal Ligation Denies: Amputation, Appendectomy, Colostomy, Coronary Artery Bypass Graft, Hysterectomy, Mastectomy, Pacemaker, Tonsillectomy Social History Smoking Status: Current Every Day Smoker Frequency of Alcohol Use: None Hx Recreational Drug Use: No Drugs: None Hx Prescription Drug Abuse: No - Advance Directive Resuscitation Status: Full Code Family History Family History: Reviewed & Not Pertinent, COPD, DM, Malignancy - Thyroid cancer, Other - Alzheimer's disease. denies: Arthritis, CAD, Hypertension Parental Family History Reviewed: Yes Children Family History Reviewed: Yes Sibling(s) Family History Reviewed.: Yes Medication/Allergy Home Medications: Aripiprazole [Abilify 15 mg Tablet] 15 mg PO DAILY 04/30/19 Cholecalciferol (Vitamin D3) [Vitamin D3] 2,000 unit PO DAILY 04/30/19 Furosemide [Lasix 40 mg Tablet] 20 mg PO Q8 04/30/19 Levothyroxine Sodium [Synthroid 0.075 mg Tablet] 0.075 mg PO MOTUWETHFRSA@0600 04/30/19 Multivitamin [Tab-A-[place] (Multiple Vitamin) Tablet] 1 tab PO DAILY 04/30/19 [place]-3 Fatty Acids/Fish Oil [[place] 3 Fish Oil Softgel] 1 cap PO DAILY 04/30/19 Pregabalin [Lyrica 75 mg Capsule] 150 mg PO Q8 04/30/19 Tapentadol HCl [Nucynta ER] 150 mg PO TID 04/30/19 Venlafaxine HCl [Effexor 75 mg Tablet] 150 mg PO DAILY 04/30/19 Vitamin E (Dl,Tocopheryl Acet) [Vitamin E] 400 unit PO DAILY 04/30/19 Zolpidem Tartrate [Ambien] 10 mg PO QHS 04/30/19 Alendronate Sodium 70 mg PO MO@1000 05/11/20 Alprazolam [Xanax 0.5 mg Tablet] 1 tab PO TIDP PRN 05/16/20 Celecoxib [Celebrex 200 mg Capsule] 100 mg PO BID 07/03/20 Guaifenesin [Mucinex Sr 600 mg Tablet.sa] 600 mg PO Q12HP PRN 07/03/20 Levothyroxine Sodium 37.5 mcg PO DE JESUS@0600 07/03/20 Oxycodone HCl/Acetaminophen [Percocet 7.5-325 mg Tablet] 1 tab PO Q4HP PRN 07/03/20 Allergies/Adverse Reactions: No Known Allergies Allergy (Verified 02/26/18 14:39) Review of Systems ROS unobtainable: Due to mental status Physical Exam Vital Signs: Temp Pulse Resp BP Pulse Ox 77 26 H 124/103 H 94 07/03/20 11:00 07/03/20 14:01 07/03/20 14:01 07/03/20 14:01 Intake & Output 07/02/20 07/03/20 07/04/20 06:59 06:59 06:59 Intake Total 100 500 Balance 100 500 Weight 127.27 kg General appearance: PRESENT: no acute distress, cooperative Eye exam: PRESENT: EOMI - It seems intact as she tracks movements, PERRLA - 3mm b/l. ABSENT: scleral icterus Mouth exam: PRESENT: neck supple Neck exam: ABSENT: JVD Respiratory exam: PRESENT: clear to auscultation neda, symmetrical, unlabored. ABSENT: crackles, tachypnea, wheezes Cardiovascular exam: PRESENT: RRR, +S1, +S2. ABSENT: tachycardia GI/Abdominal exam: PRESENT: soft. ABSENT: rebound, rigid, tenderness Extremities exam: ABSENT: pedal edema Neurological exam: PRESENT: alert, altered - Fully awake and interacts with have normal and reports not talking and not following any commands. She seems somewhat catatonic when you raise her hand up., awake, aphasic - Essentially mute Psychiatric exam: ABSENT: agitated, anxious Focused psych exam: ABSENT: pressured speech Skin exam: ABSENT: jaundice Results Laboratory Results: 07/03/20 13:50 07/03/20 13:50 07/03/20 07/03/20 07/03/20 00:26 00:26 02:33 WBC 5.2 RBC 4.88 Hgb 13.7 Hct 41.1 MCV 84 MCH 28.1 MCHC 33.4 RDW 13.7 Plt Count 158 Seg Neutrophils % 76.0 Sodium 142.8 Potassium 3.3 L Chloride 103 Carbon Dioxide 32 H Anion Gap 8 BUN 9 Creatinine 0.63 Est GFR ( Amer) > 60 Glucose 105 Calcium 8.1 L Ferritin Total Bilirubin 1.2 AST 62 H Alkaline Phosphatase 103 C-Reactive Protein Total Protein 6.3 Albumin 3.7 Urine Color YELLOW Urine Appearance SLIGHTLY-CLOUDY Urine pH 8.0 Ur Specific [place] 1.015 Urine Protein 30 H Urine Glucose (UA) NEGATIVE Urine Ketones 80 H Urine Blood NEGATIVE Urine Nitrite NEGATIVE Ur Leukocyte Esterase TRACE H Urine WBC (Auto) 6 Urine RBC (Auto) 2 07/03/20 07/03/20 13:50 13:50 WBC 3.7 L RBC 4.82 Hgb 13.4 Hct 40.4 MCV 84 MCH 27.8 MCHC 33.2 RDW 13.4 Plt Count 145 L Seg Neutrophils % 85.8 H Sodium 141.4 Potassium 3.8 Chloride 106 Carbon Dioxide 27 Anion Gap 8 BUN 8 Creatinine 0.54 Est GFR ( Amer) > 60 Glucose 124 H Calcium 8.0 L Ferritin 626.00 H Total Bilirubin 0.8 AST 64 H Alkaline Phosphatase 101 C-Reactive Protein 39.4 H Total Protein 6.0 L Albumin 3.4 L Urine Color Urine Appearance Urine pH Ur Specific [place] Urine Protein Urine Glucose (UA) Urine Ketones Urine Blood Urine Nitrite Ur Leukocyte Esterase Urine WBC (Auto) Urine RBC (Auto) 07/03/20 07/03/20 13:50 13:50 Creatine Kinase 368 H Troponin I 0.020 NT-Pro-B Natriuret Pep 539 H Impressions: Head CT 07/03/20 02:33 IMPRESSION: No acute intracranial findings. Chest X-Ray 07/03/20 07:47 IMPRESSION: No discrete radiographic evidence of acute cardiopulmonary abnormality. Assessment and Plan - Diagnosis (1) Encephalopathy acute Is this a current diagnosis for this admission?: Yes (2) COVID-19 virus infection Is this a current diagnosis for this admission?: Yes (3) Depression Qualifiers: Depression Type: unspecified Qualified Code(s): F32.9 - Major depressive disorder, single episode, unspecified Is this a current diagnosis for this admission?: Yes (4) Hypothyroidism Is this a current diagnosis for this admission?: Yes (5) Morbid obesity with BMI of 50.0-59.9, adult Is this a current diagnosis for this admission?: Yes (6) Asthma Qualifiers: Asthma severity: mild Asthma persistence: intermittent Asthma complication type: uncomplicated Qualified Code(s): J45.20 - Mild intermittent asthma, uncomplicated Is this a current diagnosis for this admission?: Yes (7) Chronic, continuous use of opioids Is this a current diagnosis for this admission?: Yes - Plan Summary Summary: Exact type or cause of her encephalopathy is unknown at this point. Head CT is negative. No evidence of liver failure. Renal function intact. While it remains a possibility that narcotic overdose played a role here, her Tylenol level is remarkably normal [on Percocet at home] and her pupils are not pinpoint. She remains fully awake and alert but almost in a catatonic state and essentially mute which is unusual for benzo/opioid OD. I will check a thyroid f unction test. Continue her Synthroid IV. No meningitic signs. Another possibility here, though much less frequent, is COVID-19 encephalopathy. So far this is the only source of infection noted. Urinalysis looks unremarkable for infection with only trace LE and only 6 WBC. Does show evidence of ketonuria probably is from starvation/poor p.o. intake. Keep n.p.o. for now. Run on D5 saline. If no improvement by tomorrow, we will check a head CT. Check ammonia level. If there continues to show no improvement, I will have psych weigh in. Though she is positive for COVID-19, she is without hypoxia, saturating 98 to 100% on room air and chest x-ray shows no pneumonia. - Time Time Spent with patient: 15-24 minutes Anticipated Discharge Disposition: Home with Home Health Anticipated Discharge Timeframe: n/a
--- NOTE | 2020-07-03 20:40 | EKG REPORT ---
SEVERITY:- ABNORMAL ECG - SINUS RHYTHM ANTEROLATERAL INFARCT, AGE INDETERMINATE : Confirmed by: Helena Cardoza MD 03-Jul-2020 20:39:29
[2020-07-03] MEDS ORDERED: ALBUTEROL SULFATE HFA (90 MCG/PUFF) 8 GM MDI IH ONE (21:18)
[2020-07-03] MEDS ORDERED: LEVOTHYROXINE SODIUM 0.05 MG TABLET ONE (21:18)
[2020-07-03] MEDS: FAMOTIDINE INJ/PF 20 MG/2 ML SDV IV SCH (21:37)
[2020-07-03] MEDS: POTASSI CL 20 MEQ/D5NS 1L 20 MEQ/1,000 ML RTUINJ IV PRN (21:37)
[2020-07-03] MEDS: ALBUTEROL SULFATE HFA (90 MCG/PUFF) 8 GM MDI IH SCH (21:57)
[2020-07-03] MEDS ORDERED: LEVOTHYROXINE SODIUM INJ/PF 0.1 MG SDV ONE (23:51)
[2020-07-04 07:02] LABS: ABSOLUTE LYMPHOCYTES (AUTO) 0.8 10^3/uL (0.5-4.7); ABSOLUTE MONOCYTES (AUTO) 0.5 10^3/uL (0.1-1.4); ABSOLUTE NEUT (AUTO) 2.6 10^3/uL (1.7-8.2); BASOPHILS % (AUTO) 0.3 % (0-2); EOSINOPHILS % (AUTO) 0.1 % (0-6); HEMATOCRIT 35.7 % (36.0-47.0); HEMOGLOBIN 12.2 g/dL (12.0-15.5); LYMPHOCYTES % (AUTO) 19.6 % (13-45); MEAN CORPUSCULAR HEMOGLOBIN 28.5 pg (27.0-33.4); MEAN CORPUSCULAR HGB CONC 34.2 g/dL (32.0-36.0); MEAN CORPUSCULAR VOLUME 83 fl (80-97); PLATELET COUNT 156 10^3/uL (150-450); RED CELL DISTRIBUTION WIDTH 13.5 % (11.5-14.0); TOTAL CELLS COUNTED % (AUTO) 100 %; WHITE BLOOD COUNT 3.9 10^3/uL (4.0-10.5)
[2020-07-04 07:20] LABS: BLOOD UREA NITROGEN 6 mg/dL (7-20); CALCIUM 7.6 mg/dL (8.4-10.2); GLUCOSE 105 mg/dL (75-110)
[2020-07-04 07:22] LABS: ALBUMIN 2.7 g/dL (3.5-5.0); ALKALINE PHOSPHATASE 78 U/L (38-126); ANION GAP 6 (5-19); ASPARTATE AMINO TRANSFERASE 57 U/L (14-36); BILIRUBIN,DIRECT 0.3 mg/dL (0.0-0.4); BILIRUBIN,TOTAL 0.6 mg/dL (0.2-1.3); CARBON DIOXIDE 25 mmol/L (22-30); CHLORIDE 113 mmol/L (98-107); PHOSPHORUS 2.4 mg/dL (2.5-4.5); TOTAL PROTEIN 4.9 g/dL (6.3-8.2)
[2020-07-04] MEDS: POTASSI CL 20 MEQ/D5NS 1L 20 MEQ/1,000 ML RTUINJ IV PRN (07:59)
[2020-07-04] MEDS ORDERED: INFLUENZA QUAD (6MOS+) 2020-21 VAC 0.5 ML SYR IM ONE (08:00)
[2020-07-04] MEDS ORDERED: POTASSI CL 20 MEQ/50 ML RIDER 20 MEQ/50 ML RTUPB IV SCH (08:30)
[2020-07-04] MEDS: POTASSI CL 20 MEQ/50 ML RIDER 20 MEQ/50 ML RTUPB IV SCH ×2 (08:43→11:09)
[2020-07-04] MEDS: FAMOTIDINE INJ/PF 20 MG/2 ML SDV IV SCH ×2 (09:05→21:52)
[2020-07-04] MEDS: ENOXAPARIN SODIUM INJ 40 MG/0.4 ML DISP.SYRIN SUBCUT SCH (09:05)
[2020-07-04] MEDS: ALBUTEROL SULFATE HFA (90 MCG/PUFF) 8 GM MDI IH SCH ×3 (09:06→17:11)
[2020-07-04] MEDS ORDERED: POTASSIUM CHLORIDE 10 MEQ TABLET.ER PO ONE (09:30)
[2020-07-04] MEDS ORDERED: POTASSIUM PHOS,M-BASIC-D-BASIC 15 MMOL in NORMAL SALINE 250 ML IV ONE (10:00)
[2020-07-04] MEDS: LEVOTHYROXINE SODIUM INJ/PF 0.1 MG SDV IV SCH (13:42)
--- NOTE | 2020-07-04 14:17 | RADIOLOGY REPORT (SQ) ---
EXAM DESCRIPTION: CTA CHEST IMAGES COMPLETED DATE/TIME: 07/04/2020 2:06 pm REASON FOR STUDY: elevated ddimer, covid, r/o pe COMPARISON: 01/14/2019 TECHNIQUE: CT scan of the chest performed using helical scanning technique with dynamic intravenous contrast injection. Images reviewed with lung, soft tissue and bone windows. Reconstructed coronal and sagittal MPR images reviewed. Additional 3 dimensional post-processing performed to develop Maximal Intensity Projection images (NE P). All images stored on PACS. All CT scanners at this facility use dose modulation, iterative reconstruction, and/or weight based d osing when appropriate to reduce radiation dose to as low as reasonably achievable (ALARA). [facility]: Dose Right [facility]: CareDose [facility]: Dose Right [facility]: Teradose 4D [facility]: [facility] CONTRAST TYPE AND DOSE: contrast/concentration: Isovue 350.00 mmol/ml; Total Contrast Delivered: 75. 0 ml; Total Saline Delivered: 55.0 ml Contrast bolus not optimized for the pulmonary arteries. RENAL FUNCTION: BUN 6, creatinine 0.60 RADIATION DOSE: CT Rad equipment meets quality standard of care and radiation dose reduction techniq ues were employed. CTDIvol: 6.6 - 59.8 mGy. DLP: 735 mGy-cm. . LIMITATIONS: Respiratory motion FINDINGS: LUNGS AND PLEURA: Bibasilar atelectasis and pleural thickening. No consolidation. AORTA AND GREAT VESSELS: No aneurysm. Contrast bolus not optimized for the aorta. HEART: No pericardial effusion. No significant coronary artery calcifications. PULMONARY ARTERIES: No central emboli. Segmental and subsegmental branches cannot be adequately eval uated due to timing of the bolus and respiratory motion. HILAR AND MEDIASTINAL STRUCTURES: No identified masses or abnormal nodes. HARDWARE: None in the chest. UPPER ABDOMEN: Large ventral hernia containing omental fat small and large bowel. THYROID AND OTHER SOFT TISSUES: No masses. No adenopathy. BONES: No acute or significant finding. 3D MIPS: Confirm above findings. OTHER: No other significant finding. IMPRESSION: Pleural thickening and basilar atelectasis. No central pulmonary emboli. Study is limi castro secondary to timing of the bolus and respiratory motion. Large ventral hernia containing a large and small-bowel as well as omental fat. COMMENT: Quality ID # [id number]: Final reports with documentation of one or more dose reduction techniques (e.g., Automated exposure control, adjustment of the mA and/or kV according to patient size, use of iterative reconstruction technique) TECHNICAL DOCUMENTATION: JOB ID: [id number] [employer]- All Rights Reserved Reading location - IP/workstation name: [email or web address]
--- NOTE | 2020-07-04 16:11 | PDOC PROGRESS REPORT ---
Subjective Date:: 07/04/20 Subjective:: Patient remains awake but essentially catatonic. No subjective is obtainable. Reason For Visit: ENCEPHALOPATHY Physical Exam Vital Signs: Temp Pulse Resp BP Pulse Ox 99.6 F 66 16 129/54 H 97 07/04/20 12:00 07/04/20 14:00 07/04/20 12:00 07/04/20 12:00 07/04/20 12:00 Intake & Output 07/03/20 07/04/20 07/05/20 06:59 06:59 06:59 Intake Total 410 218 4438 Balance 831 379 4900 Weight 113 kg General appearance: PRESENT: no acute distress. ABSENT: cooperative Head exam: PRESENT: normocephalic Eye exam: PRESENT: PERRLA - 3mm b/l Neck exam: ABSENT: JVD Respiratory exam: PRESENT: clear to auscultation neda, symmetrical, unlabored. ABSENT: tachypnea, wheezes Cardiovascular exam: PRESENT: RRR, +S1, +S2. ABSENT: tachycardia GI/Abdominal exam: PRESENT: soft. ABSENT: rebound, rigid, tenderness Neurological exam: PRESENT: alert, altered - Patient remains awake but nonverbal and does not engage in conversation or follow commands. She does engage with the environment and looks at me when I walk in and tries to grab onto my hand., awake Focused psych exam: PRESENT: catatonic Results Laboratory Results: 07/04/20 06:28 07/04/20 06:28 07/03/20 07/03/20 07/03/20 13:50 13:50 19:00 WBC RBC Hgb Hct MCV MCH MCHC RDW Plt Count Seg Neutrophils % Sodium Potassium Chloride Carbon Dioxide Anion Gap BUN Creatinine Est GFR ( Amer) Glucose Calcium Phosphorus Magnesium Total Bilirubin AST Alkaline Phosphatase Ammonia Cancelled Total Protein Albumin TSH 1.73 Free T4 1.52 07/03/20 07/04/20 07/04/20 20:50 06:28 06:28 WBC 3.9 L RBC 4.30 Hgb 12.2 Hct 35.7 L MCV 83 MCH 28.5 MCHC 34.2 RDW 13.5 Plt Count 156 Seg Neutrophils % 67.0 Sodium 143.7 Potassium 3.0 L* Chloride 113 H Carbon Dioxide 25 Anion Gap 6 BUN 6 L Creatinine 0.60 Est GFR ( Amer) > 60 Glucose 105 Calcium 7.6 L Phosphorus 2.4 L Magnesium 2.1 Total Bilirubin 0.6 AST 57 H Alkaline Phosphatase 78 Ammonia < 8.7 L Total Protein 4.9 L Albumin 2.7 L TSH Free T4 07/03/20 07/03/20 07/03/20 13:50 13:50 15:17 Creatine Kinase 368 H Troponin I 0.020 0.020 NT-Pro-B Natriuret Pep 539 H Impressions: Head CT 07/03/20 02:33 IMPRESSION: No acute intracranial findings. Chest X-Ray 07/03/20 07:47 IMPRESSION: No discrete radiographic evidence of acute cardiopulmonary abnormality. Chest/Abdomen CTA 07/04/20 00:00 IMPRESSION: Pleural thickening and basilar atelectasis. No central pulmonary emboli. Study is limited secondary to timing of the bolus and respiratory motion. Large ventral hernia containing a large and small-bowel as well as omental fat. Assessment and Plan - Diagnosis (1) Encephalopathy acute Is this a current diagnosis for this admission?: Yes (2) COVID-19 virus infection Is this a current diagnosis for this admission?: Yes (3) Depression Qualifiers: Depression Type: unspecified Qualified Code(s): F32.9 - Major depressive disorder, single episode, unspecified Is this a current diagnosis for this admission?: Yes (4) Hypothyroidism Is this a current diagnosis for this admission?: Yes (5) Morbid obesity with BMI of 50.0-59.9, adult Is this a current diagnosis for this admission?: Yes (6) Asthma Qualifiers: Asthma severity: mild Asthma persistence: intermittent Asthma complication type: uncomplicated Qualified Code(s): J45.20 - Mild intermittent asthma, uncomplicated Is this a current diagnosis for this admission?: Yes (7) Chronic, continuous use of opioids Is this a current diagnosis for this admission?: Yes - Plan Summary Summary: 07/03 Exact type or cause of her encephalopathy is unknown at this point. Head CT is negative. No evidence of liver failure. Renal function intact. While it remains a possibility that narcotic overdose played a role here, her Tylenol level is remarkably normal [on Percocet at home] and her pupils are not pinpoint. She remains fully awake and alert but almost in a catatonic state and essentially mute which is unusual for benzo/opioid OD. I will check a thyroid function test. Continue her Synthroid IV. No meningitic signs. Another possibi lity here, though much less frequent, is COVID-19 encephalopathy. So far this is the only source of infection noted. Our inhouse toxicology does not peanut picker oxycodone apparently. Urinalysis looks unremarkable for infection with only trace LE and only 6 WBC. Does show evidence of ketonuria probably is from starvation/poor p.o. intake. Keep n.p.o. for now. Run on D5 saline. If no improvement by tomorrow, we will check a head CT. Check ammonia level. If there continues to show no improvement, I will have psych weigh in. Though she is positive for COVID-19, she is without hypoxia, saturating 98 to 100% on room air and chest x-ray shows no pneumonia. 07/04 Patient remains quite altered. She remains fully awake and alert but mute, not responding to questions, not making sounds and not following commands though reaching out to try to grab my arm. She is essentially catatonic. However has no history of catatonia, psychosis or schizophrenia though has history of depression. Her thyroid function test is adequate. Ammonia is negative. Renal function is adequate. The only new change seems to be the COVID-19 infection. Does note quite appear like narcotic overdose. She remains n.p.o. I would like to keep her off narcotics for now to see if any mental state improvement but we will have to monitor closely for any evidence of withdrawal given her chronic benzo/opioid dependence. EEG is pending. CTA chest shows no pneumonia and no PE. She remains on room air. If no improvement in mental status in the next 24 to 48 hours, consider reconsulting psychiatric. - Time Time Spent with patient: 15-24 minutes Anticipated Discharge Disposition: unknown Anticipated Discharge Timeframe: Unknown
[2020-07-05] MEDS: POTASSI CL 20 MEQ/D5NS 1L 20 MEQ/1,000 ML RTUINJ IV PRN ×2 (01:30→10:41)
[2020-07-05 07:16] LABS: ANION GAP 5 (5-19); BLOOD UREA NITROGEN 4 mg/dL (7-20); CALCIUM 7.8 mg/dL (8.4-10.2); CARBON DIOXIDE 21 mmol/L (22-30); CHLORIDE 122 mmol/L (98-107); GLUCOSE 115 mg/dL (75-110); POTASSIUM 3.9 mmol/L (3.6-5.0)
[2020-07-05] MEDS: ENOXAPARIN SODIUM INJ 40 MG/0.4 ML DISP.SYRIN SUBCUT SCH (10:11)
[2020-07-05] MEDS: LEVOTHYROXINE SODIUM INJ/PF 0.1 MG SDV IV SCH (10:11)
[2020-07-05] MEDS: FAMOTIDINE INJ/PF 20 MG/2 ML SDV IV SCH ×2 (10:11→22:52)
[2020-07-05] MEDS: ALBUTEROL SULFATE HFA (90 MCG/PUFF) 8 GM MDI IH SCH ×3 (10:12→17:15)
--- NOTE | 2020-07-05 15:38 | RADIOLOGY REPORT (SQ) ---
EXAM DESCRIPTION: MRI HEAD WITHOUT IMAGES COMPLETED DATE/TIME: 07/05/2020 3:18 pm REASON FOR STUDY: AMS COMPARISON: CT head 07/03/2020 TECHNIQUE: Multiplanar imaging includes non-contrasted T1, T2, FLAIR, and diffusion with ADC map seq uences. Images stored on PACS. LIMITATIONS: None. FINDINGS: ANATOMY: No anomalies. Normal vascular flow voids. Pituitary fossa normal. CSF SPACES: Normal in size and contour. No hemorrhage. CEREBRUM: Sulci and gyri normal in size and contour. Normal white matter signal on FLAIR imaging. No evidence of hemorrhage, mass, or extraaxial fluid collection. POSTERIOR FOSSA: No signal alteration. No hemorrhage. No edema, masses or mass effect. Internal sarbjit tory canals, cerebello-pontine angles, mastoids normal. DIFFUSION IMAGING: Negative for acute or sub-acute infarction. ORBITS: No masses. Globes normal. PARANASAL SINUSES: No fluid levels. Mucosa normal. OTHER: No other significant finding. IMPRESSION: NORMAL MRI OF THE BRAIN WITHOUT INTRAVENOUS GADOLINIUM CONTRAST. EVIDENCE OF ACUTE STROKE: NO. TECHNICAL DOCUMENTATION: JOB ID: [id number] [employer]- All Rights Reserved Reading location - IP/workstation name: [email or web address]
[2020-07-05] MEDS ORDERED: 1/2 NORMAL SALINE 1,000 ML IV PRN (16:16)
[2020-07-05] MEDS ORDERED: LORAZEPAM INJ 2 MG/1 ML VIAL ONE (17:48)
--- NOTE | 2020-07-05 18:26 | NEURO WORKBENCH EEG REPORT ---
EEG Report Patient: Andreea Self ID: [id number] Referring Doctor: Gerardo Garcia DOS: 07/05/2020 Medications: albuterol, lovenox, synthroid, famotidine History This is a 70 year female with a history of COPD, bronchitis, pneumonia, GERD, fibromyalgia, TKR, depression, anxiety, hypothyroidism, CHF, [place], hypertension, thyroid disease, arrhythmia, hypercholesteroldemia who was admitted with encephalopathy. This EEG was requested for encephalopathy. EEG Interpretation This EEG was recorded in unknown state. The EEG is characterized by generalized spike and wave activity (~3Hz) throughout the recording. There were minimal clinical correlations with brief left arm stiffening +/- brief shaking noted. Photic stimulation resulted in no significant changes. The EKG channel had artifact and was not interpretable. EEG Classification * Status epilepticus, electrographic, brief clinical correlations EEG Impression This EEG is severely abnormal. 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 There were brief clinical correlations noted rarely in the left arm. Treatment with antiepileptic medication and followup EEG required. Transfer of the patient for continuous EEG monitoring is recommended. These results were discussed with the hospitalist on duty at ~1730h. INTERPRETING NEUROLOGIST: Leyla Whittington MD, FRCPC Board Certified in Neurology, with special qualification in Child Neurology, and in Clinical Neurophysiology [facility] [place] [facility]
[2020-07-05] MEDS ORDERED: VALPROATE SODIUM INJ/PF 500 MG/5 ML SDV IV ONE (18:36)
[2020-07-05] MEDS ORDERED: LORAZEPAM INJ 2 MG/1 ML VIAL IV ONE (19:00)
[2020-07-05] MEDS ORDERED: LEVETIRACETAM 3,000 MG in NORMAL SALINE 100 ML IV ONE (19:00)
--- NOTE | 2020-07-05 19:03 | PDOC TRANSFER SUMMARY ---
General Admission Date/PCP: 07/03/20 16:50 SHANICE MCCOLLUM PA-C Admission Date: 07/03/20 Transfer Date: 07/05/20 Accepting Facility: [facility] Accepting Physician: Dr. Canada Resuscitation Status: Full Code - Transfer Diagnosis (1) COVID-19 virus infection Is this a current diagnosis for this admission?: Yes Diagnosis Summary: - patient experienced SOB saturday, no fever - +ve Rapid COVID Saturday - patient was not desaturating in the ED and had a normal CXR hence she was not started on any COVID treatment - currently at room air saturating 95% (2) Non-convulsive status epilepticus Is this a current diagnosis for this admission?: Yes Diagnosis Summary: - patient has a history of depression, anxiety and fibromyalgia and takes PRN xanax and ambien. unable to say how often the patient takes her xanax - came in with AMS described as continuos blank staring almost catatonic state - urine drug screen positive for benzo on admission - CT head and MRI negative - EEG test showed non convulsive status epilepticus - received 2g IV keppra loading dose - received 2 mg IV ativan - spoke to Dr. Canada Neurology from [facility] who accepted the patient for transfer and also recommended loading dose of valproic acid - for transfer to [facility] (3) Acute metabolic encephalopathy Is this a current diagnosis for this admission?: Yes Diagnosis Summary: - 2/2 non convulsive status epilepticus (4) Asthma Is this a current diagnosis for this admission?: Yes Diagnosis Summary: - not in exacerbaton - duoneb PRN (5) Hypothyroidism Is this a current diagnosis for this admission?: Yes (6) Morbid obesity with BMI of 50.0-59.9, adult Is this a current diagnosis for this admission?: Yes Diagnosis Summary: - BMI 52 - - Transfer Medications Home Medications: Aripiprazole [Abilify 15 mg Tablet] 15 mg PO DAILY 04/30/19 Cholecalciferol (Vitamin D3) [Vitamin D3] 2,000 unit PO DAILY 04/30/19 Furosemide [Lasix 40 mg Tablet] 20 mg PO Q8 04/30/19 Levothyroxine Sodium [Synthroid 0.075 mg Tablet] 0.075 mg PO MOTUWETHFRSA@0600 04/30/19 Multivitamin [Tab-A-Teetee (Multiple Vitamin) Tablet] 1 tab PO DAILY 04/30/19 [place]-3 Fatty Acids/Fish Oil [[place] 3 Fish Oil Softgel] 1 cap PO DAILY 04/30/19 Pregabalin [Lyrica 75 mg Capsule] 150 mg PO Q8 04/30/19 Tapentadol HCl [Nucynta ER] 150 mg PO TID 04/30/19 Venlafaxine HCl [Effexor 75 mg Tablet] 150 mg PO DAILY 04/30/19 Vitamin E (Dl,Tocopheryl Acet) [Vitamin E] 400 unit PO DAILY 04/30/19 Zolpidem Tartrate [Ambien] 10 mg PO QHS 04/30/19 Alendronate Sodium 70 mg PO MO@1000 05/11/20 Alprazolam [Xanax 0.5 mg Tablet] 1 tab PO TIDP PRN 05/16/20 Celecoxib [Celebrex 200 mg Capsule] 100 mg PO BID 07/03/20 Guaifenesin [Mucinex Sr 600 mg Tablet.sa] 600 mg PO Q12HP PRN 07/03/20 Levothyroxine Sodium 37.5 mcg PO DE JESUS@0600 07/03/20 Oxycodone HCl/Acetaminophen [Percocet 7.5-325 mg Tablet] 1 tab PO Q4HP PRN 07/03/20 Transfer Medications: Current Medications Acetaminophen (Acetaminophen 325 Mg Tablet) 650 mg PO Q4HP PRN PRN Reason: FOR PAIN Stop: 08/02/20 16:16 Al Hydrox/Mg Hydrox/Simethicone (Mag Hydrox/Al Hydrox/Simeth Susp 30 Ml Udcup) 15 ml PO Q6HP PRN PRN Reason: HEARTBURN Stop: 08/02/20 16:16 Albuterol (Albuterol Sulfate Hfa (90 Mcg/Puff) 8 Gm Mdi) 2 puff IH TID BARRERA Stop: 08/02/20 17:59 Last Admin: 07/05/20 17:15 Dose: Not Given Documented by: Albuterol (Albuterol Sulfate Hfa (90 Mcg/Puff) 8 Gm Mdi) 2 puff IH Q6HP PRN PRN Reason: FOR WHEEZING Stop: 08/02/20 16:38 Enoxaparin Sodium (Enoxaparin Sodium Inj 40 Mg/0.4 Ml Disp.Syrin) 40 mg SUBCUT DAILY [facility] Stop: 08/03/20 09:59 Last Admin: 07/05/20 10:11 Dose: 40 mg Documented by: Famotidine (Famotidine Inj/Pf 20 Mg/2 Ml Sdv) 20 mg IV Q12 [facility] Stop: 08/02/20 21:59 Last Admin: 07/05/20 10:11 Dose: 20 mg Documented by: Potassium Chloride/Dextrose/Sod Cl (D5ns 1000 Ml/Kcl 20 Meq Premix Bag) 20 meq in 1,000 mls @ 110 mls/hr IV CONTINUOUS PRN PRN Reason: THIS MED IS NOT "PRN" Stop: 08/02/20 21:26 Last Admin: 07/05/20 10:41 Dose: 110 mls/hr, 110 mls/hr Documented by: Sodium Chloride (Nacl 0.45% 1000 Ml Iv Soln) 1,000 mls @ 80 mls/hr IV CONTINUOUS PRN PRN Reason: THIS MED IS NOT "PRN" Stop: 08/04/20 16:15 Last Admin: 07/05/20 17:16 Dose: 80 mls/hr Documented by: Levetiracetam 3,000 mg/ Sodium (Chloride) 130 mls @ 520 mls/hr IV NOW ONE Stop: 07/05/20 19:14 Last Admin: 07/05/20 18:39 Dose: 520 mls/hr Documented by: Levothyroxine Sodium (Levothyroxine Sodium Inj/Pf 0.1 Mg Sdv) 0.05 mg IV DAILY [facility] Stop: 07/07/20 09:59 Last Admin: 07/05/20 10:11 Dose: 0.05 mg Documented by: Lorazepam (Lorazepam Inj 2 Mg/1 Ml Vial) 2 mg IV ONCE ONE Stop: 07/05/20 19:01 Last Admin: 07/05/20 18:18 Dose: 2 mg Documented by: Ondansetron HCl (Ondansetron Hcl Inj/Pf 4 Mg/2 Ml Sdv) 4 mg IV Q8HP PRN PRN Reason: FOR NAUSEA/VOMITING Stop: 08/02/20 16:16 Valproate Sodium (Valproate Sodium Inj/Pf 500 Mg/5 Ml Sdv) 3,000 mg IV NOW ONE Stop: 07/05/20 18:37 - Allergies Allergies/Adverse Reactions: No Known Allergies Allergy (Verified 07/03/20 19:42) Hospital Course Hospital Course: PAULINE BOSCH is a 70 year old female with history of depression on antidepressants and Ambien, anxiety disorder on Xanax, fibromyalgia on Percocet, hypothyroidism, asthma, who was brought in to the hospital via EMS for evaluation of altered mental status. History obtained from patient's . Notably patient had been in her usual state of health until last night. At the time, patient's noted her to be blankly staring into space while sitting on the toilet. He did not note any muscle weakness or anything. He talked to her but she would not respond. He denies noticing any unusual limb movements. He denies any prior episodes of such situation. He did states that he saw an empty bottle of Percocet close to her bed but on further evaluation he noted that this bottle was a pill bottle from March. He was not able to find the bottles from her recent prescription on 06/16. He did note patient's grandchildren had tested positive for Covid this past Saturday. EMS rapid test was positive for Covid. Patient received ceftriaxone in the ER. Noted to not have shown improvement in several hours now. 07/04/20 Patient's mental status still has not improved with almost catatonic state per attending notes. No clear source of AMS as her CBC and CMP are both normal. EEG was ordered. 07/05/20 mental status still about the same. She is still unable to speak and follow commands with non focal neuro exam. Otherwise her VS are stable. MRI head was negative. EEG was read by Dr. Whittington and she informed me that the patient is having non convulsive status epilepticus. [facility] for transfer for Neurology and continous EEG monitoring as we do not have this capability at [facility], however both have full bed capacity. [facility] was called and I was able to speak to Dr. Canada from Neurology who accepted the patient for transfer to [facility]. She also advised me to load the patient with Valproic acid on top of the keppra and ativan loading dose. Physical Exam Vital Signs: Temp Pulse Resp BP Pulse Ox 98.6 F 68 32 H 145/87 H 98 07/05/20 15:46 07/05/20 15:46 07/05/20 15:46 07/05/20 15:46 07/05/20 15:46 Intake & Output 07/04/20 07/05/20 07/06/20 06:59 06:59 06:59 Intake Total 500 2350 1000 Output Total 652 Balance 500 1698 1000 Weight 113 kg 113 kg General appearance: PRESENT: no acute distress Head exam: PRESENT: atraumatic, normocephalic Eye exam: PRESENT: PERRLA Ear exam: PRESENT: normal external ear exam Neck exam: PRESENT: full ROM Respiratory exam: PRESENT: clear to auscultation neda, symmetrical, unlabored Cardiovascular exam: PRESENT: RRR, +S1 Pulses: PRESENT: +2 pedal pulses bilateral GI/Abdominal exam: PRESENT: normal bowel sounds, soft. ABSENT: rebound, tenderness Neurological exam: PRESENT: awake, other - Patient has no verbal output and sara ot follow commands. ABSENT: oriented to person, oriented to place, oriented to time, oriented to situation Skin exam: PRESENT: normal color Results Laboratory Results: 07/04/20 06:28 07/05/20 06:10 07/05/20 06:10 Sodium 147.6 H Potassium 3.9 Chloride 122 H Carbon Dioxide 21 L Anion Gap 5 BUN 4 L Creatinine 0.61 Est GFR ( Amer) > 60 Glucose 115 H Calcium 7.8 L 07/03/20 07/03/20 07/03/20 13:50 13:50 15:17 Creatine Kinase 368 H Troponin I 0.020 0.020 NT-Pro-B Natriuret Pep 539 H Impressions: Head CT 07/03/20 02:33 IMPRESSION: No acute intracranial findings. Chest X-Ray 07/03/20 07:47 IMPRESSION: No discrete radiographic evidence of acute cardiopulmonary abnormality. Chest/Abdomen CTA 07/04/20 00:00 IMPRESSION: Pleural thickening and basilar atelectasis. No central pulmonary emboli. Study is limited secondary to timing of the bolus and respiratory motion. Large ventral hernia containing a large and small-bowel as well as omental fat. Head MRI 07/05/20 00:00 IMPRESSION: NORMAL MRI OF THE BRAIN WITHOUT INTRAVENOUS GADOLINIUM CONTRAST. EVIDENCE OF ACUTE STROKE: NO. Plan Discharge Plan: Patient has been accepted for transfer at [facility]. Total critical care time>35 minutes for this patient who is having non convulsive status epilepticus. Time Spent: Greater than 30 Minutes
[2020-07-05] MEDS ORDERED: VALPROATE SODIUM IV ONE (20:00)
[2020-07-05] MEDS ORDERED: NORMAL SALINE IV ONE (20:00)
[2020-07-05] MEDS ORDERED: LEVETIRACETAM 1500 MG/NACL-ISO 1,500 MG/100 ML RTUPB IV SCH (22:00)
[2020-07-06 00:11] VITALS: BP 147/73
== END 2020-07-06 01:54 | disposition short-term general hospital (02) | DRG 178 ==
LOC: ER 23:36 → EH 07-03 16:50 → 4S 07-03 17:56
PROVIDERS: ADMIT Internal Medicine; ATTEND Internal Medicine
DX: U07.1 COVID-19 (principal); Z68.43 Body mass index [BMI] 50.0-59.9, adult; G40.901 Epilepsy, unspecified, not intractable, with status epilepticus; M79.7 Fibromyalgia; F32.9 Major depressive disorder, single episode, unspecified; F41.9 Anxiety disorder, unspecified; E03.9 Hypothyroidism, unspecified; E66.01 Morbid (severe) obesity due to excess calories; E78.5 Hyperlipidemia, unspecified; K21.9 Gastro-esophageal reflux disease without esophagitis; I10 Essential (primary) hypertension; F17.210 Nicotine dependence, cigarettes, uncomplicated; J45.20 Mild intermittent asthma, uncomplicated; I25.2 Old myocardial infarction; Z79.890 Hormone replacement therapy; Z79.891 Long term (current) use of opiate analgesic; Z86.73 Personal history of transient ischemic attack (TIA), and cerebral infarction without residual deficits
CPT/HCPCS: 36415; 70450; 70551; 71045; 71275; 80048; 80053; 80307; 81001; 82140; 82550; 82728; 83615; 83735; 83880; 84100; 84439; 84443; 84484; 85025; 85379; 86140; 87040; 87070; 93005; 93010; 95819; 96361; 96365; 96375; 99285; 0241U; C9803; J0696; J1100; J1650; J1953; J2060; J3480; J3490; J7040; J7050; S0028